=== PATIENT | female | born 1945 | race Caucasian/White ===

== ENCOUNTER 2023-07-19 11:04 | Outpatient (OUT) | payer MEDICARE, SELFPAY ==
[2023-07-19 11:47] LABS: Basophils Percent Auto 0.9 % (0.2-2.0); Eosinophils Absolute Auto 0.1 10^3/uL (0.0-0.7); Eosinophils Percent Auto 2.8 % (0.9-7.0); Hematocrit 37.7 % (36.0-48.0); Hemoglobin 12.6 g/dL (12.0-16.0); Immature Granulocytes Abs Auto 0.01 10^3/uL (0.00-0.03); Immature Granulocytes Pct Auto 0.2 % (0.0-0.5); Mean Corpuscular HGB Conc 33.4 g/dL (29.9-35.2); Mean Corpuscular Hemoglobin 34.1 pg (26.7-34.0); Mean Corpuscular Volume 102.2 fL (81.0-99.0); Mean Platelet Volume 9.1 fL (9.5-13.5); Monocytes Absolute Auto 0.5 10^3/uL (0.3-0.8); Monocytes Percent Auto 10.5 % (1.7-12.0); Neutrophils Absolute Auto 2.7 10^3/uL (1.4-6.5); Neutrophils Percent Auto 61.6 % (43.0-75.0); Platelet Count 211 10^3/uL (150-450); Red Blood Count 3.69 10^6/uL (4.20-5.40); Red Cell Distribution Width 11.8 % (11.0-15.0); White Blood Count 4.3 10^3/uL (4.0-11.0)
[2023-07-19 12:37] LABS: Alanine Aminotransferase 23 U/L (14-59); Anion Gap 12.6; Aspartate Amino Transferase 26 U/L (15-37); Calcium 8.8 mg/dL (8.5-10.1); Carbon Dioxide 28.7 mmol/L (21.0-32.0); Chloride 102 mmol/L (98-107); Cholesterol 219 mg/dL (<=200); Estimated GFR (African America >60 (>=60); Estimated GFR (Non-African Ame >60 (>=60); Glucose 96 mg/dL (74-106); HDL Cholesterol 73 mg/dL (40-60); Potassium 4.3 mmol/L (3.5-5.1); Sodium 139 mmol/L (136-145); Triglycerides 86 mg/dL (<=150); VLDL CHOLESTEROL 17.2 mg/dL
== END 2023-07-19 11:05 | disposition home or self-care (01) ==
PROVIDERS: PCP Internal Medicine; Visit Provider Internal Medicine Cardiovascular Disease
DX: I25.10 Atherosclerotic heart disease of native coronary artery without angina pectoris (principal); Z79.899 Other long term (current) drug therapy; E78.5 Hyperlipidemia, unspecified
CPT/HCPCS: 36415; 80048; 80061; 84450; 84460; 85025

== ENCOUNTER 2023-07-26 20:08 | Emergency (ER) | payer MEDICARE, SELFPAY ==
[2023-07-26 20:19] VITALS: BP 144/65; PULSE 63; RESP 16; TEMP 37.1; O2SAT 98; BMI 26.2
--- NOTE | 2023-07-26 20:37 | CT_ITS ---
The [address] [address] Patient Name: SHEILA ALVAREZ MRN: [id number] date: 1945 Sex: F Assigned Patient Location: ER Current Patient Location: .[facility] Accession/Order Number: [id number] Exam Date: 07/26/2023 21:35 Report Date: 07/26/2023 22:19 At the request of: GERMAN MARKER Procedure: CT head/brain wo con EXAMINATION: CT head/brain wo con, CT cervical spine wo con CLINICAL HISTORY: fall, head injury TECHNIQUE: Serial axial unenhanced images were obtained from the vertex to the foramen magnum. Spiral, high resolution axial unenhanced images were obtained from the skull base to the cervicothoracic junction with sagittal and coronal planar reconstructions. All CT scans at this facility use dose modulation, iterative reconstruction, and/or weight based dosing when appropriate to reduce radiation dose to as low as reasonably achievable. COMPARISON: CT brain 05/10/2016 RESULT: BRAIN: Acute change: No evidence of an acute contusion or other acute parenchymal process. Hemorrhage: No evidence of acute intracranial hemorrhage. Mass lesion / Mass effect: There is no evidence of an intracranial mass or extraaxial fluid collection. No significant mass effect. Chronic change: Scattered patchy foci of low attenuation are present within supratentorial white matter which is a nonspecific finding but likely represents mild microvascular ischemia. Parenchyma: There is mild generalized volume loss. Ventricles: Ventricular enlargement concordant with the degree of parenchymal volume loss. Soft Tissues: Mild superior right parietal scalp soft tissue swelling. Facial bones: No evidence of an acute fracture in the visualized facial bones. Orbits: Bilateral lens replacements. Paranasal Sinuses: The paranasal sinuses are clear. Mastoid air cells: Clear. CERVICAL: Counting reference: Craniocervical junction. Alignment: Cervical lordosis is maintained. Grade anterolisthesis C5 on C6. Atlantoaxial interval is maintained. Vertebral body heights are maintained. Multilevel loss of disc spaces most prominent at C4-C5. Craniocervical junction: Craniocervical junction is normal. Osseous structures/fracture: No evidence of a lytic or blastic process in the visualized spine. No evidence of acute or chronic fracture. Cervical soft tissues: The paraspinal soft tissues planes are maintained. Multilevel degenerative changes of the cervical spine, most prominent at C5-C6. Upper thoracic spine: Visualized upper thoracic canal and foramina without significant narrowing. CT/CT head/brain wo con IMPRESSION: Brain: 1. No acute intracranial abnormality; no acute infarct, intracranial hemorrhage or extra-axial collection. 2. Chronic microvascular ischemia and involutional changes. 3. Mild superior parietal scalp soft tissue swelling. Cervical spine: 1. No acute fracture or traumatic malalignment in the cervical spine. 2. Multilevel degenerative changes most prominent at C5-C6. Electronically authenticated by: SIDNEY MCCARTNEY Date: 07/26/2023 22:19
--- NOTE | 2023-07-26 20:37 | CT_ITS ---
The [address] [address] Patient Name: SHEILA ALVAREZ MRN: [id number] date: 1945 Sex: F Assigned Patient Location: ER Current Patient Location: .[facility] Accession/Order Number: [id number] Exam Date: 07/26/2023 21:35 Report Date: 07/26/2023 22:19 At the request of: GEMRAN MARKER Procedure: CT cervical spine wo con EXAMINATION: CT head/brain wo con, CT cervical spine wo con CLINICAL HISTORY: fall, head injury TECHNIQUE: Serial axial unenhanced images were obtained from the vertex to the foramen magnum. Spiral, high resolution axial unenhanced images were obtained from the skull base to the cervicothoracic junction with sagittal and coronal planar reconstructions. All CT scans at this facility use dose modulation, iterative reconstruction, and/or weight based dosing when appropriate to reduce radiation dose to as low as reasonably achievable. COMPARISON: CT brain 05/10/2016 RESULT: BRAIN: Acute change: No evidence of an acute contusion or other acute parenchymal process. Hemorrhage: No evidence of acute intracranial hemorrhage. Mass lesion / Mass effect: There is no evidence of an intracranial mass or extraaxial fluid collection. No significant mass effect. Chronic change: Scattered patchy foci of low attenuation are present within supratentorial white matter which is a nonspecific finding but likely represents mild microvascular ischemia. Parenchyma: There is mild generalized volume loss. Ventricles: Ventricular enlargement concordant with the degree of parenchymal volume loss. Soft Tissues: Mild superior right parietal scalp soft tissue swelling. Facial bones: No evidence of an acute fracture in the visualized facial bones. Orbits: Bilateral lens replacements. Paranasal Sinuses: The paranasal sinuses are clear. Mastoid air cells: Clear. CERVICAL: Counting reference: Craniocervical junction. Alignment: Cervical lordosis is maintained. Grade anterolisthesis C5 on C6. Atlantoaxial interval is maintained. Vertebral body heights are maintained. Multilevel loss of disc spaces most prominent at C4-C5. Craniocervical junction: Craniocervical junction is normal. Osseous structures/fracture: No evidence of a lytic or blastic process in the visualized spine. No evidence of acute or chronic fracture. Cervical soft tissues: The paraspinal soft tissues planes are maintained. Multilevel degenerative changes of the cervical spine, most prominent at C5-C6. Upper thoracic spine: Visualized upper thoracic canal and foramina without significant narrowing. CT/CT cervical spine wo con IMPRESSION: Brain: 1. No acute intracranial abnormality; no acute infarct, intracranial hemorrhage or extra-axial collection. 2. Chronic microvascular ischemia and involutional changes. 3. Mild superior parietal scalp soft tissue swelling. Cervical spine: 1. No acute fracture or traumatic malalignment in the cervical spine. 2. Multilevel degenerative changes most prominent at C5-C6. Electronically authenticated by: SIDNEY MCCARTNEY Date: 07/26/2023 22:19
--- NOTE | 2023-07-26 20:38 | ED_ITS ---
HPI - Fall General Chief Complaint: Head Injury Stated Complaint: Fall, Head Laceration Time Seen by Provider: 07/26/23 20:28 Source: patient Mode of arrival: Wheelchair History of Present Illness HPI Narrative: This 77-year-old female who is on a daily baby aspirin is brought to the emergency department by her son after she fell at home. 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 She denies loss of consciousness. She sustained approximately 1.5 cm laceration to the right lateral parietal scalp. She had moderate bleeding at the time which has since stopped. She complains of some mild headache and neck pain. She has no focal weakness numbness or tingling. She does not know the date of her last tet anus shot. She has no nausea or vomiting. There was no seizure activity. She is otherwise at her baseline Related Data Allergies Allergy/AdvReac Type Severity Reaction Status Date / Time No Known Drug Allergies Allergy Verified 07/26/23 20:19 Review of Systems ROS Status of ROS 10 or more systems reviewed and unremarkable except as noted in history and below Exam Narrative Exam Narrative: Nurses note and vital signs reviewed and patient is not hypoxic. General: The patient appears well and in no apparent distress. Patient is rest ing comfortably on cart. GCS 15. Skin: Warm, dry, no pallor noted. There is no rash noted. Head: Normocephalic, There is approximately 1.5 cm laceration to the left parietal scalp, no step-off or active bleeding noted Neck: No midline bony verteebral tenderness or step-off Eye: Normal conjunctiva, no drainage, EOMI. PERRL Ears, Nose, Mouth, and Throat: oral mucosa is moist. Cardiovascular: Regular Rate and Rhythm Respiratory: Patient is in no distress, no accessory muscle use, lungs are clear to auscultation, no wheezing, rales or rhonchi Back: non-tender, no CVA tenderness bilaterally to percussion. GI: Normal bowel sounds, no tenderness to palpation, no masses appreciated. No rebound, guarding, or rigidity noted. Musculoskeletal: The patient has no evidence of calf tenderness, no pitting edema, symmetrical pulses noted bilaterally Neurological: A&O x4, normal speech, Upper and lower external he strength and sensation is intact, information scientist strength is normal. GCS 15 Psychiatric: Cooperative Constitutional Vital Signs, click to edit/add: Last Vital Signs Temp 98.7 F 07/26/23 20:19 Pulse 63 07/26/23 20:19 Resp 16 07/26/23 20:19 BP 144/65 H 07/26/23 20:19 Pulse Ox 98 07/26/23 20:19 O2 Del Method Room Air 07/26/23 20:19 Course Vital Signs Vital signs: Vital Signs Temperature 98.7 F 07/26/23 20:19 Pulse Rate 63 07/26/23 20:19 Respiratory Rate 16 07/26/23 20:19 Blood Pressure 144/65 H 07/26/23 20:19 Pulse Oximetry 98 07/26/23 20:19 Oxygen Delivery Method Room Air 07/26/23 20:19 Temperature 98.7 F 07/26/23 20:19 Pulse Rate 63 07/26/23 20:19 Respiratory Rate 16 07/26/23 20:19 Blood Pressure 144/65 H 07/26/23 20:19 Pulse Oximetry 98 07/26/23 20:19 Oxygen Delivery Method Room Air 07/26/23 20:19 MDM - Fall MDM Narrative Medical decision making narrative: Procedure note: Right scalp laceration repair; the area was cleaned with normal saline and hydrogen peroxide. LET gel was applied topically and 4 hector were placed into the laceration with good wound edge approximation. Pt tolerated procedure well. This 69-year-old female is brought emergency department by her son for evaluation after she had a fall at home while bending over to picking machine operator her cat. She sustained an approximately 2cm laceration to the right parietal aspect of her scalp. She denies loss of consciousness. Upon arrival she had a mild headache and some nonspecific neck pain. There is no midline bony vertebral tenderness. Her neuro exam is normal. He skin of the brain is negative for acute findings. CT scan of the cervical spine shows chronic changes but no acute fracture or subluxation. The scalp laceration was closed with 4 hector after the skin was cleaned. Patient had a procedure well. She'll be discharged home with head trauma instructions. I explained to the patient and her son that the hector can be removed in the next 5-7 days. Discharge Plan Discharge Chief Complaint: Head Injury Clinical Impression: Fall from standing, Closed head injury, Laceration of scalp Patient Disposition: Home, Self-Care Time of Disposition Decision: 22:38 Instructions: Fall Prevention for Older Adults (ED), Head Injury (ED), Staple Care (ED) Additional Instructions: Hector can be removed in the next 5-7 days Referrals: CULLEN RUSSELL [Primary Care Provider] - 1 week Procedures ED Laceration Laceration Laceration 1: Size (cm): 2 Description: linear
--- NOTE | 2023-07-26 21:00 | PC.NURSE ---
Pt presents to ER for a laceration to the top of her head after falling while picking up her earlier this evening Pt's son is with her No loss of consciousness Pt takes 2 aspirin a day
[2023-07-26] MEDS: ADACEL DIPH,PERTUSS(ACELL),TET VAC/PF 0.5 ML ADULT SYRINGE IM (21:09)
[2023-07-26] MEDS: ACETAMINOPHEN 325 MG TABLET 650 MG PO (21:09)
== END 2023-07-26 22:50 | disposition home or self-care (01) ==
PROVIDERS: Emergency Provider Emergency Medicine; PCP Internal Medicine
DX: S01.01XA Laceration without foreign body of scalp, initial encounter (principal); S09.8XXA Other specified injuries of head, initial encounter; Z23 Encounter for immunization; W19.XXXA Unspecified fall, initial encounter
CPT/HCPCS: 12001; 70450; 72125; 90471; 90715; 99284

== ENCOUNTER 2023-08-15 13:01 | Outpatient (OUT) | payer MEDICARE, SELFPAY ==
--- NOTE | 2023-08-15 13:04 | XR_ITS ---
[address] [address] Patient Name: SHEILA ALVAREZ MRN: [id number] date: 1945 Sex: F Assigned Patient Location: [facility] Current Patient Location: [facility] Accession/Order Number: [id number] Exam Date: 08/15/2023 13:15 Report Date: 08/15/2023 14:35 At the request of: BLAS RODRIGUEZ Procedure: XR DEXA axial skeleton EXAMINATION: XR DEXA axial skeleton, 08/15/2023 1:15 PM EDT HISTORY: Osteoporosis M81.0 COMPARISON: 2019, 2017, 2014, 2010. TECHNIQUE: Dual-energy X-ray absorptiometry (DEXA) bone density study performed for the axial skeleton. HISTORY: Osteoporosis M81.0 FINDINGS: Bone mineral density left forearm radius measures 0.493 g/sq cm. T score -3.1. Endotracheal classification: Osteoporosis. Right femur total bone marrow density measures 0.833 g/sq cm. Young adult T score -1.4. WHO classification: Osteopenia XR/XR DEXA axial skeleton IMPRESSION: Interval reduction in bone mineral density. Osteoporosis with high fracture risk Electronically authenticated by: RANDY DUNAWAY Date: 08/15/2023 14:35
== END 2023-08-15 13:02 | disposition home or self-care (01) ==
LOC: RAD 13:01
PROVIDERS: PCP Internal Medicine; Visit Provider Physician Assistant
DX: M81.0 Age-related osteoporosis without current pathological fracture (principal)
CPT/HCPCS: 77080

== ENCOUNTER 2023-11-24 14:50 | Outpatient (OUT) | payer MEDICARE, SELFPAY ==
[2023-11-24 15:39] LABS: Calcium 9.1 mg/dL (8.5-10.1); Carbon Dioxide 28.1 mmol/L (21.0-32.0); Chloride 104 mmol/L (98-107); Estimated GFR (African America >60 (>=60); Estimated GFR (Non-African Ame >60 (>=60); Glucose 108 mg/dL (74-106); Potassium 4.1 mmol/L (3.5-5.1); Sodium 138 mmol/L (136-145)
== END 2023-11-24 14:51 | disposition home or self-care (01) ==
PROVIDERS: PCP Internal Medicine; Visit Provider Internal Medicine Cardiovascular Disease
DX: R60.1 Generalized edema (principal)
CPT/HCPCS: 36415; 80048

== ENCOUNTER 2024-07-04 13:11 | Outpatient (OUT) | payer MEDICARE, SELFPAY ==
[2024-07-04 14:06] LABS: BUN Creatinine Ratio 19.1; Carbon Dioxide 29.1 mmol/L (21.0-32.0); Chloride 101 mmol/L (98-107); Estimated GFR (African America >60 (>=60); Estimated GFR (Non-African Ame >60 (>=60); Glucose 97 mg/dL (74-106); Potassium 4.1 mmol/L (3.5-5.1); Sodium 138 mmol/L (136-145)
[2024-07-04 14:38] LABS: Basophils Percent Auto 0.7 % (0.2-2.0); Eosinophils Absolute Auto 0.1 10^3/uL (0.0-0.7); Eosinophils Percent Auto 3.1 % (0.9-7.0); Hemoglobin 12.6 g/dL (12.0-16.0); Immature Granulocytes Abs Auto 0.01 10^3/uL (0.00-0.03); Immature Granulocytes Pct Auto 0.2 % (0.0-0.5); Lymphocytes Absolute Auto 1.1 10^3/uL (1.2-3.8); Lymphocytes Percent Auto 24.8 % (20.5-60.0); Mean Corpuscular HGB Conc 33.2 g/dL (29.9-35.2); Mean Corpuscular Hemoglobin 33.9 pg (26.7-34.0); Mean Corpuscular Volume 102.2 fL (81.0-99.0); Mean Platelet Volume 9.5 fL (9.5-13.5); Monocytes Absolute Auto 0.5 10^3/uL (0.3-0.8); Monocytes Percent Auto 11.8 % (1.7-12.0); Neutrophils Absolute Auto 2.7 10^3/uL (1.4-6.5); Neutrophils Percent Auto 59.4 % (43.0-75.0); Platelet Count 220 10^3/uL (150-450); Red Blood Count 3.72 10^6/uL (4.20-5.40); White Blood Count 4.5 10^3/uL (4.0-11.0)
== END 2024-07-04 13:12 | disposition home or self-care (01) ==
LOC: LAB 13:13
PROVIDERS: PCP Internal Medicine; Visit Provider Internal Medicine Cardiovascular Disease
DX: I48.0 Paroxysmal atrial fibrillation (principal); Z79.899 Other long term (current) drug therapy
CPT/HCPCS: 36415; 80048; 85025

== ENCOUNTER 2024-08-07 14:09 | Outpatient (OUT) | payer MEDICARE, SELFPAY ==
--- NOTE | 2024-08-07 14:13 | US_ITS ---
The [address] [address] Patient Name: SHEILA ALVAREZ MRN: [id number] date: 1945 Sex: F Assigned Patient Location: US Current Patient Location: Accession/Order Number: [id number] Exam Date: 08/07/2024 14:15 Report Date: 08/08/2024 10:44 At the request of: BLAS RODRIGUEZ Procedure: US abdomen limited EXAMINATION: US abdomen limited HISTORY: Localized Superficial Swelling Mass COMPARISON: No relevant comparison available. FINDINGS: Identified in the region of patient's palpable abnormality and tenderness along the umbilicus is a ventral hernia containing mesentery as well as a loop of bowel evidenced by air with acoustic shadowing. The size of this hernia change significantly with Valsalva US/US abdomen limited IMPRESSION: Ventral hernia containing mesentery and bowel Electronically authenticated by: RANDY DUNAWAY Date: 08/08/2024 10:44
--- OUTSIDE RECORDS SUMMARY | 2024-08-07 14:31 | XMS_ITS | CCD ---
Author Organization [facility] CliniSymo Care Team Providers Care Dentures Lab Technician Name Role Phone AUSTIN RENTERIA Admitting Unavailable AUSTIN RENTERIA Attending Unavailable AUSTIN TORRES Referring Unavailable AUSTIN TORRES Primary Care Unavailable Unavailable Unavailable Eladio Posada Unavailable Mariana Duggan Unavailable DAWSON ., DR HAZEL Walker Admitting Unavailable OSMAN ., DR HAZEL Walker Attending Unavailable DREW, DR BERMAN Primary Care Unavailable DAWSON ., DR HAZEL Walker Consulting Unavailable OSMAN ., DR HAZEL Walker Admitting Unavailable OSMAN ., DR HAZEL Walker Attending Unavailable DREW, DR BERMAN Primary Care Unavailable BENTLEY ., DALE Consulting Unavailable DAWSON ., DR HAZEL Walker Admitting Unavailable OSMAN ., DR HAZEL Walker Attending Unavailable DREW, DR BERMAN Primary Care Unavailable OSMAN ., DR HAZEL Walker Consulting Unavailable OSMAN ., DR HAZEL Walker Admitting Unavailable OSMAN ., DR HAZEL Walker Attending Unavailable DREW, DR BERMAN Primary Care Unavailable OSMAN ., DR HAZEL Walker Consulting Unavailable DAWSON ., DR HAZEL Walker Admitting Unavailable OSMAN ., DR HAZEL Walker Attending Unavailable DREW, DR BERMAN Primary Care Unavailable BENTLEY ., DALE Consulting Unavailable DAWSON ., DR HAZEL Walker Admitting Unavailable OSMAN ., DR HAZEL Walker Attending Unavailable DREW, DR BERMAN Primary Care Unavailable DAWSON ., DR HAZEL Walker Consulting Unavailable CLAUDIA OLIVER Admitting Unavailable CLAUDIA OLIVER Attending Unavailable DREW, DR BERMAN Primary Care Unavailable LEDBETTER, DR RANDY Sullivan Consulting Unavailable CLAUDIA OLIVER Consulting Unavailable QUENTIN Torres Primary Care Provider DO Eladio Posada Attending Provider Austin Torres II Primary Care Provider Austin Torres Unavailable Dr. Tawnya Fontana Referring Sheri vailable Fontana, Dr. Tawnya Stockton Attending Sheri vailable Torres II, Dr. Austin Morrissey Primary Care Sheri vailable Fontana, Dr. Tawnya Stockton Referring Sheri vailable Fontana, Dr. Tawnya Stockton Attending Sheri vailable Torres II, Dr. Austin Morrissey Primary Care Sheri vailable Yung, Dr. Jono Gan Attending Unava ilable Torres II, Dr. Austin Morrissey Primary Care Sheri vailable Yung, Dr. Jono Gan Referring Unava ilable Fontana, Dr. aTwnya Stockton Referring Sheri vailable Fontana, Dr. Tawnya Stockton Attending Sheri vailable Torres II, Dr. Austin Morrissey Primary Care Sheri vailable Austin Torres MD Unavailable [phone] Austin Torres MD Primary Care Provider Austin Torres MD Primary Care Provider TAWNYA FONTANA Referring Unavailable DREW AUSTIN B Primary Care Unavailable Torres, Austin Primary Care Unavailable Laurie Posadain A Attending Unavailable Laurie Posadain A Admitting Unavailable Laurie Posadain A Attending Unavailable Laurie Posadain A Admitting Unavailable Torres, Austin Primary Care Unavailable Torres II Austin Primary Care Provider DO Eladio Posada Attending Provider [phone] TAWNYA FONTANA Attending Unavailable DREW AUSTIN B Primary Care Unavailable TAWNYA FONTANA Attending Unavailable TAWNYA FONTANA Referring Unavailable DREW AUSTIN B Primary Care Unavailable DREW AUSTIN B Attending Unavailable DREW, AUSTIN B Attending Unavailable SANTHOSH VICKERS Attending Unavailable ALBINO, ELADIO Referring Unavailable DEA RODRIGUEZ Attending Unavailable GERMAN MAZA Attending Unavailable ALBINO, ELADIO Referring Unavailable RAQUEL BARRIENTOS Attending Unavailable ALBINO, ELADIO Referring Unavailable SANTHOSH VICKERS T Attending Unavailable ALBINO, ELADIO Referring Unavailable SANTHOSH VICKERS T Attending Unavailable ALBINO ELADIO Referring Unavailable RAQUEL BARRIENTOS Attending Unavailable LAURIE POSADAIN Referring Unavailable RAQUEL BARRIENTOS Attending Unavailable ALBINO, ELADIO Referring Unavailable BRINK, RAQUEL Attending Unavailable ALBINO, ELADIO Referring Unavailable BRINK, RAQUEL Attending Unavailable ALBINO, ELADIO Referring Unavailable BRINK, RAQUEL Attending Unavailable ALBINO, ELADIO Referring Unavailable BRINK, RAQUEL Attending Unavailable ALBINO, ELADIO Referring Unavailable BRINK, RAQUEL Attending Unavailable ALBINO, ELADIO Referring Unavailable BRINK, RAQUEL Attending Unavailable ALBINO, ELADIO Referring Unavailable BRINK, RAQUEL Attending Unavailable ALBINO, ELADIO Referring Unavailable CLAUDIA OLIVER M Attending Unavailable BRINK, RAQUEL Attending Unavailable ALBINO, ELADIO Referring Unavailable BENITOCLAUDIA M Attending Unavailable BRINK, RAQUEL Attending Unavailable ALBINO, ELADIO Referring Unavailable BRINK, RAQUEL Attending Unavailable ALBINO, ELADIO Referring Unavailable BRINK, RAQUEL Attending Unavailable ALBINO, ELADIO Referring Unavailable DEA RODRIGUEZ M Attending Unavailable MERRY OLIVEIRA Attending Unavailable MERRY OLIVEIRA Referring Unavailable Allergies Allergy Classification Reported Allergen(s) Allergy Type Date of Onset Reaction(s) Facility (7 sources) Clindamycin; Translations: [CLINDAMYCIN] Drug Allergy 014 Unknown Reaction [facility] Repository (12 sources) Codeine; Translations: [CODEINE] Drug Allergy 014 Unknown, Unknown Reaction [facility] Repository (1 source) Hydroxychloroquine Drug Allergy 017 [facility] Repository (1 source) Hydroxychloroquine Drug Allergy 017 [facility] Repository (1 source) Minocycline Drug Allergy 017 [facility] Repository (20 sources) Clindamycin; Translations: [Clindamycin] Drug Allergy 013 Rash, Unknown [facility] Work Phone: (20 sources) Codeine; Translations: [Codeine Derivatives] Drug Allergy 004 Mental Status Change, Dizziness, Unknown [facility] (11 sources) Hydroxychloroquine Drug Allergy 011 [facility] (8 sources) Minocycline Drug Allergy 013 Other: See Comments [facility] Work Phone: (5 sources) HYDROXYLCHOROQUINE HLC Propensity to adverse reactions Unknown [facility] Other (5 sources) CLINDOMYCIN Propensity to adverse reactions Unknown [facility] Other (1 source) cefdinir Drug Allergy [facility] Repository (1 source) Hydroxychloroquine Drug Allergy 014 [facility] Repository (1 source) Minocycline Drug Allergy 014 [facility] Repository (1 source) cefdinir Drug Allergy 016 Intolerance [facility] (1 source) Hydroxychloroquine Drug Allergy 011 Swelling [facility] (3 sources) cefdinir Drug Allergy 016 GI intolerance [facility] (3 sources) DULoxetine Drug Allergy 022 Unknown [facility] (3 sources) Minocycline Drug Allergy 013 Other, Unknown [facility] (3 sources) quiNINE Drug Allergy 017 [facility] (3 sources) Other Propensity to adverse reactions 003 [facility] (1 source) Clindamycin Drug Allergy 024 [facility] Repository (1 source) Codeine Drug Allergy 024 [facility] Repository (1 source) Hydroxychloroquine Drug Allergy 024 [facility] Repository (1 source) Minocycline Drug Allergy 024 [facility] Repository Medications Current Medications Medication Drug Class(es) Dates Sig (Normalized) Sig (Original) acetaminophen 500 mg oral tablet (20 sources) Start: 09-08-2021 take 1000 mg by mouth every eight hours Acetaminophen Active 1000 MG PO Q8H 0 September 08, 2021 12:00am Start: 08-27-2019 End: 11-26-2019 take 325 mg by mouth every six hours Acetaminophen Discontinued 325 MG PO Q6H August 27, 2019 12:00am November 26, 2019 2:36pm acetaminophen (T ylenol) 500 mg tablet Take 1 tablet (500 mg) by mouth if needed. 0 Active take 1 tablet by lisa th every four to six hours as needed Acetaminophen 500 MG Oral Tablet TAKE 1 TABLET EVERY 4 TO 6 HOURS NEEDED. Quantity: 0 Refills: 0 Ordered: 25-Jan-2022 DO Active [id number] 200 actuat albuterol 0.09 mg/actuat metered dose inhaler (20 sources) beta2-Adrenergic Agonist Start: 11-26-2019 take 1 puff(s) by inhalation every four to six hours Albuterol Sulfate (Proair Hfa) 90 mcg/actuation Hfa Aerosol Inhaler Active 2 PUFF INHALATION EVERY 4-6 HOURS November 26, 2019 1:00am Start: 12-13-2016 take 2 puff(s) by in halation every four hours as needed ProAir HFA 108 (90 Base) MCG/ACT 2 puffs as needed Inhalation every 4 hrs for 90 days Dec, Active take 1-2 puff(s) by inhalation every four to six hours as needed Albuterol Sulfate HFA 108 (90 Base) MCG/ACT Inhalation Aerosol Solution INHALE 1 TO 2 PUFFS EVERY 4 TO 6 HOURS NEEDED. Quantity: 0 Refills: 0 Ordered: 15-Sep-2022 DO Active Anoro Ellipta 62.5-25 MCG/INH (1 source) take 1 puff(s) by inhalation once daily Anoro Ellipta 62.5-25 MCG/INH 1 puff Inhalation Once a day for 90 days Active Aspir-81 81 MG (5 sources) take 1 tablet by mouth once daily Aspir-81 81 MG 1 tablet Orally Once a day *please review for potential _update for e-prescription and drug interaction check* Active aspirin 81 mg delayed release oral tablet (20 sources) Platelet Aggregation Inhibitor, Nonsteroidal Anti-inflammatory Drug Start: 2 take 1 tablet by mouth once daily aspirin 81 mg EC tablet Take 1 tablet (81 mg) by mouth once daily. 0 01/25/2022 Active Start: 08-27-2019 End: 11-26-2019 take 1 tablet by mouth once daily Aspirin (Aspir-81) 81 mg Tablet,Delayed Release (Dr/Ec) Discontinued 81 MG PO Daily August 27, 2019 12:00am November 26, 2019 2:37pm take 1 tablet by lisa th two times weekly aspirin, enteric coated (ASPIRIN, ENTERIC COATED) 81 mg EC tablet Take 81 mg by mouth as directed. 2 times a week 0 Active Comment on above: Take 81 mg by mouth as directed. 2 times a week azithromycin 250 mg oral tablet (2 sources) Macrolide Antimicrobial Start: 12-13-19 24 End: 12-18-19 24 take 2 tablets by mouth once daily, then take 1 tablet by mouth once daily azithromycin (Zithromax) 250 MG tablet Indications: Acute non-recurrent sinusitis, unspecified location Take 2 tablets (500 mg) by mouth Daily for 1 day, THEN 1 tablet (250 mg) Daily for 4 days. 6 tablet 0 12/13/2023 12/18/2023 Active b complex vitamins capsule (3 sources) take 1 capsule by mouth in the morning b complex vitamins capsule Take 1 capsule by mouth in the morning. 0 Active calcium citrate 1500 mg / cholecalciferol 250 unt oral tablet (5 sources) Vitamin D Start: 09-08-20 calcium citrate-vitamin D3 315 mg-6.25 mcg (250 unit) tablet 1 tablet (315 mg) once daily. 0 09/08/2021 Active Start: 09-08-2021 take 1 tablet by lisa th twice daily Calcium Citrate-Vitamin D3 (Citracal + D Maximum) 315 mg-6.25 mcg (250 unit) tablet Active 1 TAB PO Twice daily September 08, 2021 12:00am citalopram 20 mg oral tablet (15 sources) Serotonin Reuptake Inhibitor Start: 09-04-2021 take 20 mg by mouth once daily Citalopram Active 20 MG PO Daily September 04, 2021 12:00am Start: 12-03-2019 End: 09-04-2021 take 10 mg by mouth once daily in the morning Citalopram Discontinued 10 MG PO Every morning December 03, 2019 1:00am September 04, 2021 7:49pm Further refills per Primary Care take 1 tablet by lisa th twice daily Citalopram Hydrobromide 20 MG Oral Tablet TAKE 1 TABLET TWICE DAILY. Quantity: 0 Refills: 0 Ordered: 25-Jan-2022 DO Active Comment on above: Take 10 mg by mouth once daily. cycloSPORINE 0.5 mg/ml ophthalmic suspension (20 sources) Calcineurin Inhibitor Immunosuppressant Start: 04-13-2023 cycloSPORINE (Restasis) 0.05 % ophthalmic emulsion Indications: Chronic dryness of both eyes Restasis 0.05 % eye drops in a dropperette 1.5 mL 11 04/13/2023 Active Start: 04-11-2022 Restasis 0.05 % Ophthalmic Emulsion Quantity: 60 Refills: 0 Ordered: 02-Aug-2022 DO Start : 11-Apr-2022 Active Start: 09-08-2021 take 1 drop(s) into the eye(s) twice daily Cyclosporine (Restasis) 0.05 % Dropperette Active 1 DROPS EYE-BOTH Twice daily September 08, 2021 12:00am take 1 drop(s) into the eye(s) twice daily Restasis 0.05 % ophthalmic emulsion instill 1 (ONE) DROP IN BOTH EYES TWICE DAILY 0 Active Restasis 0.05 % 1 into affected eye Ophthalmic Twice a day Active Restasis 0.05 % 1 into affected eye Ophthalmic Twice a day Active docosahexaenoic acid 120 mg / eicosapentaenoic acid 180 mg oral capsule (15 sources) take 1 capsule by mouth once daily fish oil concentrate ([place]coe-3) 120-180 mg capsule Take 1 capsule (1 g) by mouth once daily. 0 Active 30 actuat fluticasone furoate 0.1 mg/actuat / umeclidinium 0.0625 mg/actuat / vilanterol 0.025 mg/actuat dry powder inhaler (18 sources) Anticholinergic , Corticosteroid, beta2-Adrenergi c Agonist Start: 04-13-20 take 1 puff(s) by inhalation in the morning Fluticasone-Umeclid in-Vilant (Trelegy Ellipta) 100-62.5-25 MCG/ACT aerosol powder Indications: Chronic obstructive pulmonary disease, unspecified COPD type ([facility]) Inhale 1 puff in the morning. 1 each 04/13/2023 Active Start: 02-09-2022 Trelegy Ellipt a 100-62.5-25 MCG/ACT Inhalation Aerosol Powder Breath Activated Quantity: 60 Refills: 0 Ordered: 31-Aug-2022 DO Start : 09-Feb-2022 Active take 1 puff[facility] Trelegy Ellipta 100-62.5-25 mcg blister with device INHALE 1 PUFF BY MOUTH IN THE MORNING 0 Active furosemide 20 mg oral tablet (9 sources) Loop Diuretic Start: 11-13-2023 End: 11-12-2024 take 1 tablet by mouth once daily as needed furosemide (Lasix) 20 mg tablet Indications: Generalized edema Take 1 tablet (20 mg) by mouth once daily. As needed 30 tablet 3 11/13/2023 11/12/2024 Active Start: 09-08-2021 Furosemide Act tam 20 MG PO Q48H September 08, 2021 12:00am Comment on above: Take 20 mg by mouth once daily. gabapentin 300 mg oral capsule (20 sources) Anti-epileptic Agent Start: 12-03-2019 Gabapentin (Neurontin) 300 mg Capsule Active 100 MG PO Twice daily 0 December 03, 2019 12:47pm Start: 08-27-2019 End: 12-03-2019 Gabapentin (Neurontin) 300 m g Capsule Discontinued 100 MG PO Daily August 27, 2019 12:00am December 03, 2019 1:42pm take 100 mg by mouth twice daily GABAPENTIN ORAL Take 100 mg by mouth twice daily. 0 Active Comment on above: Take 100 mg by mouth twice daily. 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 0 Active latanoprost 0.05 mg/ml ophthalmic solution (20 sources) Prostaglandin Analog Start: latanoprost, PF, 0.005 % drops Administer into both eyes once daily at bedtime. 0 09/08/2021 Active Start: 09-08-2021 take 1 drop(s) into the eye(s) at bedtime Latanoprost (Xalatan) 0.005 % drops Active 1 DROPS EYE-BOTH Bedtime September 08, 2021 12:00am latanoprost (Xal atan) 0.005 % ophthalmic solution 1 (one) time each day at the same time. 1 drop into affected eye in the evening Ophthalmic Once a day 0 Active take 1 drop(s) into the eye(s) at bedtime Latanoprost 0.005 % Ophthalmic Solution INSTILL 1 DROP IN BOTH EYES AT BEDTIME. Quantity: 0 Refills: 0 Ordered: 25-Jan-2022 DO Active magnesium oxide 400 mg oral tablet (20 sources) Start: 01-25-2022 take 1 tablet by mouth in the morning magnesium oxide (Mag-Ox) 400 (240 Mg) MG tablet Take 400 mg by mouth in the morning. 0 01/10/2023 Active methylPREDNISolone 4 mg oral tablet (4 sources) Corticosteroid Start: 04-29-2022 methylPREDNISolone 4 MG as directed Orally for 7 days Apr, Active Start: 04-10-2015 Depo-Medrol 20 mg Apr, 60 mg montelukast 10 mg oral tablet (20 sources) Leukotriene Receptor Antagonist Start: 11-21-2017 take 10 mg by mouth once daily in the evening Montelukast Active 10 MG PO Every evening August 27, 2019 12:00am Multivitamins (5 sources) Multivitamins Or ally *please review for potential _update for e-prescription and drug interaction check* Active oxyCODONE hydrochloride 5 mg oral tablet (3 sources) Opioid Agonist Start: 09-14-2021 take 5 mg by mouth every six hours Oxycodone Active 5 MG PO Q6H 12 3 September 14, 2021 pantoprazole 40 mg delayed release oral tablet (5 sources) Proton Pump Inhibitor take 1 tablet by mouth every twenty-four hours Pantoprazole Sodium 40 MG 1 tablet Orally Once a day for 90 days Active pregabalin 100 mg oral capsule (6 sources) Start: 12-04-2023 take 1 capsule by mouth in the morning pregabalin (Lyrica) 100 MG capsule Indications: Sensory polyneuropathy Take 1 capsule (100 mg) by mouth in the morning and 1 capsule (100 mg) before bedtime. 60 capsule 3 12/04/2023 Active Start: 05-05-2023 pregabalin (Ly eligio) 75 mg capsule Lyrica CAPS TAKE 1 CAPSULE Daily Quantity: 0 Refills: 0 Ordered: 30-Jun-2023 DO Active ProAir HFA 108 (90 Base) MCG/ACT (1 source) Start: 12-13-2016 take 2 puff(s) by inhalation every four hours as needed ProAir HFA 108 (90 Base) MCG/ACT 2 puffs as needed Inhalation every 4 hrs for 90 days Dec, Active sotalol hydrochloride 80 mg oral tablet (20 sources) Antiarrhythmic Start: 12-03-2019 take 40 mg by mouth once daily Sotalol Active 40 MG PO Daily December 03, 2019 1:00am take 0.5 tablet by mouth once da radhika sotalol (Betapace) 80 mg tablet Take 0.5 tablets (40 mg) by mouth once daily. 0 Active take 1 tablet by mouth once gui y sotalol (Betapace) 80 MG tablet 80 mg 1 (one) time each day at the same time. 1 half tablet = 40mg Orally daily 0 Active Comment on above: Take 80 mg by mouth once daily. half tablet 7 actuat umeclidinium 0.0625 mg/actuat / vilanterol 0.025 mg/actuat dry powder inhaler (8 sources) Anticholinergic, beta2-Adrenergic Agonist Start: 08-27-2019 Umeclidinium-Vilanterol (Anoro Ellipta) 62.5-25 mcg/actuation Blister With Device Active 1 INH INHALATION Q24H August 27, 2019 12:00am umeclidinium-queta anterol (ANORO ELLIPTA) 62.5-25 mcg/actuation inhaler Inhale 1 Inhalation as instructed once daily. 0 Active take 1 puff(s) by in halation once daily Anoro Ellipta 62.5-25 MCG/INH 1 puff Inh alation Once a day for 90 days Active Comment on above: Inhale 1 Inhalation as instructed once daily. Completed/Discontinued Medications Medication Drug Class(es) Dates Sig (Normalized) Sig (Original) amLODIPine 2.5 mg oral tablet (8 sources) Dihydropyridine Calcium Channel Nino Start: 08-27-2019 End: 12-03-2019 take 2.5 mg by mouth once daily Amlodipine Discontinued 2.5 MG PO Daily August 27, 2019 12:00am December 03, 2019 1:41pm Ascorbic Acid (13 sources) Vitamin C ascorbic acid (VITAMIN C ORAL) Take by mouth once daily. 0 Active take 1 tablet by mouth once gui y Vitamin C 1000 MG Oral Tablet TAKE 1 TABLET DAILY. Quantity: 0 Refills: 0 Ordered: 15-Sep-2022 DO Active Comment on above: Take by mouth once d aily. atorvastatin 40 mg oral tablet (20 sources) HMG-CoA Reductase Inhibitor Start: 08-27-20 End: 10-25-20 24 take 1 tablet by mouth at bedtime atorvastatin (Lipitor) 40 MG tablet Indications: Coronary arteriosclerosis in [place] artery (CMS/HCC) Take 1 tablet (40 mg) by mouth at bedtime. 100 tablet 3 09/21/2023 12/13/2023 Discontinued (Side effects) Comment on above: Take 40 mg by mouth once daily. cholecalciferol 0.025 mg oral capsule (18 sources) Vitamin D Start: 08-27-20 End: 11-26-19 take 1 capsule by mouth once daily Cholecalciferol (Vitamin D3) (Vitamin D3) 1,000 unit Capsule Discontinued 1000 UNIT PO Daily August 27, 2019 12:00am November 26, 2019 2:37pm take 1 tablet by mouth once gui y Vitamin D3 50 MCG (1999 UT) Oral Tablet Take 1 tablet daily Quantity: 0 Refills: 0 Ordered: 25-Jan-2022 DO Active COMPOUNDED PRESCRIPTION (1 source) COMPOUNDED PRESCRIPTION Apply to affected area. given for hands 0 Active Comment on above: Apply to affected ar ea. given for hands DULoxetine 60 mg delayed release oral capsule (3 sources) Serotonin and Norepinephrine Reuptake Inhibitor Start: End: take 1 capsule by mouth once daily Duloxetine (Cymbalta) 60 mg Capsule,Delayed Release(Dr/Ec) Discontinued 60 MG PO Daily August 27, 2019 12:00am November 26, 2019 2:37pm ipratropium bromide 0.2 mg/ml inhalation solution (3 sources) Anticholinergic Start: End: Ipratropium [place] Discontinued 2.5 ML INHALATION every 6 to 8 hours August 27, 2019 12:00am November 26, 2019 2:37pm levoFLOXacin 500 mg oral tablet (3 sources) Quinolone Antimicrobial Start: End: take 500 mg by mouth once daily Levofloxacin Discontinued 500 MG PO Daily November 26, 2019 1:00am December 03, 2019 1:41pm Lidocaine (3 sources) Antiarrhythmic, Amide Local Anesthetic Start: Lidocaine Apr, 1 mL magnesium gluconate 550 mg oral tablet (3 sources) Start: End: take 30 mg by mouth once daily Magnesium Discontinued 30 MG PO Daily August 27, 2019 12:00am November 26, 2019 2:37pm metoprolol tartrate 25 mg oral tablet (6 sources) beta-Adrenergic Nino Start: End: take 25 mg by mouth twice daily Metoprolol Tartrate Discontinued 25 MG PO Twice daily August 27, 2019 12:00am December 03, 2019 1:41pm metroNIDAZOLE 7.5 mg/ml topical cream (3 sources) Nitroimidazole Antimicrobial Start: End: metroNIDAZOLE (Metrocream) 0.75 % cream 1 (one) time each day at the same time. apply to area around mouth topically Once a day for 30 day(s) 0 01/30/2023 12/13/2023 Discontinued (Therapy completed) Multi Vitamin Oral Tablet (3 sources) take 1 tablet by mouth once daily Multi Vitamin Oral Tablet TAKE 1 TABLET DAILY. Quantity: 0 Refills: 0 Ordered: 25-Jan-2022 DO Active MV,CA,MIN/IRON FUM/FA/VIT K (MULTI FOR HER ORAL) (1 source) MV,CA,MIN/IRON FUM/FA/VIT K (MULTI FOR HER ORAL) Take by mouth. 0 Active Comment on above: Take by mouth. nystatin [id number] unt/ml / triamcinolone acetonide 1 mg/ml topical cream (3 sources) Polyene Antifungal, Corticosteroid End: nystatin-triamcinolo ne (Mycolog II) cream nystatin-triamcinolo ne 100,000 unit/g-0.1 % topical cream 0 12/13/2023 Discontinued (Therapy completed) omeprazole 20 mg oral tablet (3 sources) Proton Pump Inhibitor Start: End: take 20 mg by mouth once daily Omeprazole Discontinued 20 MG PO Daily August 27, 2019 12:00am November 26, 2019 2:38pm OTC NUTRITIONAL SUPPLEMENT (1 source) OTC NUTRITIONAL SUPPLEMENT once daily. Toney Red 0 Active Comment on above: once daily. Toney Red TABS (13 sources) TABS Ta ke 1 tablet daily Quantity: 0 Refills: 0 Ordered: 15-Sep-2022 DO Active rivaroxaban 20 mg oral tablet (9 sources) Factor Xa Inhibitor Start: End: take 1 tablet by mouth once daily Rivaroxaban (Xarelto) 20 mg Tablet Discontinued 20 MG PO Daily with supper 30 December 03, 2019 1:00am October 27, 2021 3:34pm Comment on above: Take 20 mg by mouth daily with dinner. tiZANidine 4 mg oral tablet (3 sources) Central alpha-2 Adrenergic Agonist Start: 023 End: 024 tiZANidine (Zanaflex) 4 MG tablet Indications: Lumbosacral radiculopathy at L5 , Lumbosacral spondylosis with radiculopathy , Insomnia due to medical condition 1/2-1 po hs 30 tablet 3 08/30/2023 12/13/2023 Discontinued (Therapy completed) triamcinolone acetonide 40 mg/ml injectable suspension (10 sources) Corticosteroid Start: 022 Kenalog-40 May, 40 mg Start: 08-03-2018 KENALOG - 10 m g Jul, 40 mg Start: 01-22-2016 Kenalog -40 mg Jan, 1 mL Turmeric Curcumin Oral Capsule (13 sources) take 1 capsule by mouth once daily Turmeric Curcumin Oral Capsule TAKE 1 CAPSULE Daily Quantity: 0 Refills: 0 Ordered: 15-Sep-2022 DO Active Vitamin B Complex CAPS (12 sources) Vitamin B Comple x CAPS TAKE 1 CAPSULE Daily Quantity: 0 Refills: 0 Ordered: 15-Sep-2022 DO Active vitamin b complex capsule (1 source) take 1 capsule by mouth once daily vitamin b complex capsule Take 1 capsule by mouth once daily. 0 Active Comment on above: Take 1 capsule [facility] once daily. vortioxetine 10 mg oral tablet (12 sources) take 1 tablet by mouth once daily Trintellix 10 MG Oral Tablet Take 1 tablet daily Quantity: 0 Refills: 0 Ordered: 15-Sep-2022 DO Active zolpidem tartrate 5 mg oral tablet (8 sources) gamma-Aminobutyri c Acid-ergic Agonist Start: 0 End: 1 take 5 mg by mouth once daily at bedtime Zolpidem Discontinued 5 MG PO Daily at bedtime December 03, 2019 1:00am October 25, 2021 3:24pm Problems Active Problems Problem Classification Problem Date Documented Da te Episodic/Chronic Acquired foot deformities (19 sources) Hammer toe; Translations: [Other hammer toe(s) (acquired), right foot] Onset: 7 Resolved: 3 03-30-2023 Chronic Acute and unspecified renal failure (3 sources) Injury of kidney; Translations: [Acute kidney failure, unspecified] 09-04-2021 Episodic Adjustment disorders (3 sources) Adjustment disorder with depressed mood; Translations: [Adjustment disorder with depressed mood] Onset: 1 03-30-2023 Chronic Anxiety disorders (13 sources) Anxiety; Translations: [Anxiety disorder, unspecified] Onset: 0 03-30-2023 Chronic Asthma (8 sources) Reactive airway disease; Translations: [Unspecified asthma, uncomplicated] Onset: 5 03-30-2023 Chronic Cardiac arrest and ventricular fibrillation (3 sources) Ventricular fibrillation; Translations: [Ventricular fibrillation] 10-26-2021 Chronic Cardiac dysrhythmias (20 sources) Paroxysmal atrial fibrillation; Translations: [Atrial fibrillation] Onset: 7 12-02-2019 Chronic Cardiac dysrhythmias (9 sources) Sinus bradycardia; Translations: [Bradycardia, unspecified] Onset: 7 10-25-2021 Episodic Chronic kidney disease (3 sources) Chronic kidney disease stage 3; Translations: [Stage 3 chronic kidney disease] 11-26-2019 Chronic Chronic obstructive pulmonary disease and bronchiectasis (14 sources) Pulmonary emphysema; Translations: [Emphysema, unspecified] Onset: 5 11-26-2019 Chronic Coagulation and hemorrhagic disorders (2 sources) Thrombophilia; Translations: [Other thrombophilia] 12-13-2023 Chronic Complication of device; implant or graft (3 sources) Arteriosclerosis of coronary artery bypass graft; Translations: [Atherosclerosis of coronary artery bypass graft(s), unspecified, with angina pectoris with documented spasm] Onset: 7 03-30-2023 Chronic Congestive heart failure; nonhypertensive (20 sources) Chronic diastolic heart failure; Translations: [Unspecified diastolic (congestive) heart failure] Onset: 0 11-26-2019 Chronic Coronary atherosclerosis and other heart disease (20 sources) Coronary atherosclerosis; Translations: [Coronary atherosclerosis of lower [place] coronary artery] Onset: 7 03-30-2023 Chronic Digestive congenital anomalies (3 sources) Congenital hiatus hernia; Translations: [Congenital hiatus hernia] Onset: 7 03-30-2023 Chronic Diseases of white blood cells (4 sources) Neutropenia; Translations: [Neutropenia, unspecified] Onset: 7 12-29-2016 Chronic Disorders of lipid metabolism (20 sources) Hyperlipidemia; Translations: [Other and unspecified hyperlipidemia] Onset: 1 11-29-2019 Chronic Diverticulosis and diverticulitis (20 sources) Diverticulitis; Translations: [Diverticulitis of intestine, part unspecified, without perforation or abscess without bleeding] Onset: 5 Resolved: 3 03-30-2023 Chronic E Codes: Fall (3 sources) Fall; Translations: [Unspecified fall, initial encounter] 10-26-2021 Episodic Esophageal disorders (20 sources) Gastro-esophageal reflux disease with esophagitis; Translations: [Gastro-esophageal reflux disease with esophagitis] Onset: 6 Resolved: 3 06-13-2016 Chronic Esophageal disorders (5 sources) Esophagitis; Translations: [Esophagitis, unspecified] Episodic Essential hypertension (14 sources) Benign essential hypertension; Translations: [Essential (primary) hypertension] Onset: 5 11-26-2019 Chronic Fluid and electrolyte disorders (9 sources) Hyponatremia; Translations: [Hypo-osmolality and hyponatremia] 11-30-2019 Episodic Fracture of upper limb (8 sources) Other fracture of shaft of right humerus, subsequent encounter for fracture with routine healing; Translations: [Closed fracture of humerus] Onset: 1 Resolved: 2 Episodic Gastritis and duodenitis (5 sources) Gastritis; Translations: [Gastritis, unspecified, without bleeding] Episodic Glaucoma (3 sources) Bilateral glaucoma; Translations: [Unspecified glaucoma] Onset: 3 03-30-2023 Chronic Heart valve disorders (8 sources) Tricuspid valve disorder; 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, unspecified] Onset: 5 03-30-2023 Chronic Malaise and fatigue (11 sources) Fatigue; Translations: [Chronic fatigue, unspecified] Onset: 8 03-30-2023 Chronic Malaise and fatigue (20 sources) Fatigue; Translations: [Other malaise and fatigue] Onset: 3 Resolved: 3 08-03-2023 Episodic Menopausal disorders (11 sources) Primary ovarian failure; Translations: [Other primary ovarian failure] Onset: 8 Resolved: 3 03-30-2023 Chronic Mood disorders (20 sources) Acute depression; Translations: [Major depressive disorder, single episode, unspecified] Onset: 6 Resolved: 3 03-30-2023 Chronic Nutritional deficiencies (3 sources) Vitamin D deficiency; Translations: [Vitamin D deficiency, unspecified] Onset: 1 03-30-2023 Chronic Occlusion or stenosis of precerebral arteries (11 sources) Atherosclerosis of right carotid artery; Translations: [Occlusion and stenosis of right carotid artery] Onset: 6 03-30-2023 Chronic Osteoarthritis (20 sources) Degenerative joint disease involving multiple joints; Translations: [Polyosteoarthritis, unspecified] Onset: 3 Chronic Osteoporosis (12 sources) Osteoporosis; Translations: [Age-related osteoporosis without current pathological fracture] Onset: 5 08-03-2016 Chronic Other acquired deformities (8 sources) Kyphosis of thoracic spine; Translations: [Unspecified kyphosis, thoracic region] Onset: 3 03-30-2023 Chronic Other aftercare (16 sources) Drug therapy finding; Translations: [Long-term (current) use of other medications] Episodic Other aftercare (2 sources) Taking high risk medication; Translations: [Other long term care phlebotomist (current) drug therapy] Onset: 3 10-27-2023 Episodic Other and ill-defined heart disease (8 sources) Cardiomegaly; Translations: [Cardiomegaly] Onset: 5 04-09-2023 Chronic Other and unspecified benign neoplasm (5 sources) Tubular adenoma of colon; Translations: [Benign neoplasm of colon, unspecified] Episodic Other circulatory disease (8 sources) Cardiac implant in situ; Translations: [Presence of cardiac and vascular implant and graft, unspecified] Onset: 8 03-30-2023 Chronic Other connective tissue disease (5 sources) Presence of right artificial shoulder joint; Translations: [Presence of right artificial shoulder joint] Chronic Other connective tissue disease (5 sources) Viral myalgia; Translations: [Myalgia] Episodic Other connective tissue disease (1 source) Pain in right foot; Translations: [PAIN IN RIGHT FOOT] Onset: 3 Episodic Other connective tissue disease (3 sources) Rhabdomyolysis; Translations: [Rhabdomyolysis] 09-04-2021 Episodic Other ear and sense organ disorders (3 sources) Asymmetrical sensorineural hearing loss; Translations: [Sensorineural hearing loss, bilateral] Onset: 3 03-30-2023 Chronic Other gastrointestinal disorders (8 sources) Irritable bowel syndrome with diarrhea; Translations: [Irritable bowel syndrome with diarrhea] Onset: 9 03-30-2023 Chronic Other gastrointestinal disorders (5 sources) Heartburn; Translations: [Heartburn] Episodic Other inflammatory condition of skin (8 sources) Perioral dermatitis; Translations: [Perioral dermatitis] Onset: 3 03-30-2023 Chronic Other injuries and conditions due to external causes (18 sources) At risk for falls ; Translations: [History of fall] Onset: 3 10-27-2023 Episodic Other injuries and conditions due to external causes (3 sources) Hypothermia; Translations: [Hypothermia, initial encounter] 09-04-2021 Episodic Other lower respiratory disease (5 sources) Acute exacerbation of chronic obstructive airways disease; Translations: [Other disorders of lung] Episodic Other lower respiratory disease (3 sources) Dyspnea; Translations: [Dyspnea, unspecified] 11-26-2019 Episodic Other nervous system disorders (8 sources) Chronic pain; Translations: [Other chronic pain] Onset: 5 04-09-2023 Chronic Other nervous system disorders (1 source) Other chronic pain; Translations: [OTHER CHRONIC PAIN] Onset: 2 Chronic Other nervous system disorders (3 sources) Carpal tunnel syndrome; Translations: [Carpal tunnel syndrome, unspecified upper limb] Onset: 3 03-30-2023 Chronic Other nervous system disorders (3 sources) Difficulty walking; Translations: [Difficulty in walking, not elsewhere classified] Onset: 7 03-30-2023 Chronic Other non-traumatic joint disorders (4 sources) Pain in right hip; Translations: [PAIN IN RIGHT HIP] Onset: 3 Episodic Other non-traumatic joint disorders (1 source) Pain in right knee; Translations: [PAIN IN RIGHT KNEE] Onset: 3 Episodic Other non-traumatic joint disorders (1 source) Pain in left knee Episodic Other non-traumatic joint disorders (1 source) Chronic pain of left upper limb; Translations: [Pain in left shoulder] 07-06-2020 Episodic Other non-traumatic joint disorders (7 sources) Pain in right shoulder; Translations: [Pain in joint, shoulder region] Onset: 4 06-19-2014 Episodic Other nutritional; endocrine; and metabolic disorders (3 sources) Hypocalcemia; Translations: [Hypocalcemia] Onset: 1 03-30-2023 Chronic Other nutritional; endocrine; and metabolic disorders (16 sources) Overweight in adulthood with body mass index of 25 or more but less than 30; Translations: [Overweight] Episodic Other upper respiratory disease (11 sources) Allergic rhinitis; Translations: [Other allergic rhinitis] Onset: 5 Resolved: 3 03-30-2023 Chronic Other upper respiratory infections (5 sources) Upper respiratory infection; Translations: [Acute upper respiratory infection, unspecified] 12-02-2019 Episodic Otitis media and related conditions (3 sources) Acute transudative otitis media; Translations: [Other acute nonsuppurative otitis media, right ear] 12-20-2021 Episodic Residual codes; unclassified (3 sources) Insomnia co-occurrent and due to medical condition; Translations: [Insomnia due to medical condition] Onset: 3 08-30-2023 Chronic Residual codes; unclassified (3 sources) Insomnia; Translations: [Insomnia, unspecified] 09-14-2021 Episodic Rheumatoid arthritis and related disease (12 sources) Rheumatoid arthritis; Translations: [Rheumatoid arthritis, unspecified] Onset: 4 Resolved: 3 02-14-2014 Chronic Skull and face fractures (6 sources) Fracture of base of skull; Translations: [Fracture of base of skull, unspecified side, initial encounter for closed fracture] 09-04-2021 Episodic Spondylosis; intervertebral disc disorders; other back problems (20 sources) Degeneration of lumbar intervertebral disc; Translations: [Other intervertebral disc degeneration, lumbar region] Onset: 5 Chronic Sprains and strains (7 sources) Strain of unspecified muscle, fascia and tendon at shoulder and upper arm level, left arm, initial encounter; Translations: [Strain of unspecified muscle, fascia and tendon at shoulder and upper arm level, left arm, subsequent encounter] Onset: 2 Resolved: 2 Episodic Syncope (8 sources) Vasovagal symptom; Translations: [Syncope and collapse] 10-25-2021 Episodic Unclassified (4 sources) LOW BACK PAIN, UNSPECIFIED; Translations: [LOW BACK PAIN, UNSPECIFIED] Onset: 2 Unclassified (1 source) Pain in left knee; Translations: [Pain in left knee] Onset: 3 Past or Other Problems Problem Classification Problem Date Documented Da te Episodic/Chronic Abdominal hernia (9 sources) Hiatal hernia; Translations: [Diaphragmatic hernia without obstruction or gangrene] Onset: 09-25-2015 06-13-2016 Episodic Conditions associated with dizziness or vertigo (9 sources) Dizziness; Translations: [Dizziness and giddiness] Onset: 12-19-2023 12-20-2021 Episodic Coronary atherosclerosis and other heart disease (2 sources) Presence of aortocoronary bypass graft; Translations: [Presence of aortocoronary bypass graft] Onset: 10-27-2023 Episodic Deficiency and other anemia (3 sources) Anemia; Translations: [Anemia, unspecified] Onset: 04-15-2017 03-30-2023 Episodic Immunizations and screening for infectious disease (3 sources) Anti-nuclear factor positive; Translations: [Other specified abnormal immunological findings in serum] Onset: 03-30-2023 03-30-2023 Episodic Mood disorders (5 sources) Mood disorders Onset: 01-25-2022 Resolved: 08-03-2023 08-03-2023 Other acquired deformities (8 sources) Spondylolisthesis; Translations: [Spondylolisthesis, site unspecified] Onset: 04-09-2023 04-09-2023 Episodic Other acquired deformities (3 sources) Acquired spondylolisthesis; Translations: [Spondylolisthesis, site unspecified] Onset: 01-29-2019 03-30-2023 Episodic Other aftercare (2 sources) Other long term care phlebotomist (current) drug therapy; Translations: [Other assisted (current) drug therapy] Onset: 10-27-2023 Episodic Other bone disease and musculoskeletal deformities (8 sources) Arrest of bone development AND/OR growth; Translations: [Other disorders of bone development and growth, unspecified site] Onset: 09-25-2015 03-30-2023 Episodic Other bone disease and musculoskeletal deformities (1 source) Other specified disorders of bone density and structure, unspecified site; Translations: [OTH D/O BONE DEN STRUCT UNS SITE] Onset: 06-23-2022 Episodic Other circulatory disease (3 sources) Orthostatic hypotension; Translations: [Orthostatic hypotension] Onset: 04-15-2017 03-30-2023 Episodic Other connective tissue disease (1 source) Muscle wasting and atrophy, not elsewhere classified, unspecified site; Translations: [MUSCLE WASTING ATROPHY NEC UNS SITE] Onset: 09-07-2022 Episodic Other connective tissue disease (4 sources) Adhesive capsulitis of right shoulder; Translations: [Adhesive capsulitis of right shoulder] Onset: 04-30-2012 04-30-2012 Episodic Other connective tissue disease (4 sources) Unspecified rotator cuff tear or rupture of unspecified shoulder, not specified as traumatic; Translations: [Rotator cuff (capsule) sprain] Onset: 04-30-2012 04-30-2012 Episodic Other connective tissue disease (3 sources) Muscle weakness; Translations: [Muscle weakness (generalized)] Onset: 04-15-2017 03-30-2023 Episodic Other connective tissue disease (3 sources) Recurrent falls ; Translations: [Repeated falls] Onset: 11-02-2021 03-30-2023 Episodic Other connective tissue disease (3 sources) Fibromyalgia; Translations: [Fibromyalgia] Onset: 04-09-2023 04-09-2023 Episodic Other connective tissue disease (3 sources) Muscle pain; Translations: [Myalgia, unspecified site] Onset: 06-30-2021 Resolved: 08-03-2023 08-03-2023 Episodic Other ear and sense organ disorders (8 sources) Sensorineural hearing loss, bilateral; Translations: [Sensorineural hearing loss, bilateral] Onset: 08-28-2016 Resolved: 08-03-2023 08-03-2023 Chronic Other gastrointestinal disorders (6 sources) Diarrhea; Translations: [Diarrhea, unspecified] Onset: 02-14-2014 02-14-2014 Episodic Other gastrointestinal disorders (3 sources) History of gastritis; Translations: [Personal history of other diseases of the digestive system] Onset: 06-30-2021 03-30-2023 Episodic Other hematologic conditions (4 sources) ESR raised; Translations: [Elevated erythrocyte sedimentation rate] Onset: 09-26-2011 09-26-2011 Episodic Other injuries and conditions due to external causes (4 sources) Fracture of bone; Translations: [Other injury of unspecified body region, initial encounter] Onset: 09-26-2011 Resolved: 08-03-2023 09-26-2011 Episodic Other injuries and conditions due to external causes (4 sources) H/O: vertebral fracture; Translations: [Personal history of (healed) traumatic fracture] Onset: 01-20-2017 01-20-2017 Episodic Other injuries and conditions due to external causes (2 sources) History of falling; Translations: [History of falling] Onset: 10-27-2023 Episodic Other lower respiratory disease (8 sources) Dyspnea on exertion; Translations: [Other forms of dyspnea] Onset: 04-27-2018 03-30-2023 Episodic Other lower respiratory disease (3 sources) Disorder of lung; Translations: [Other disorders of lung] Onset: 07-26-2016 03-30-2023 Episodic Other nervous system disorders (3 sources) Incoordination; Translations: [Other lack of coordination] Onset: 04-15-2017 03-30-2023 Episodic Other nervous system disorders (3 sources) Skin sensation disturbance; Translations: [Unspecified disturbances of skin sensation] Onset: 05-22-2023 05-22-2023 Episodic Other nervous system disorders (3 sources) Numbness and tingling sensation of skin; Translations: [Anesthesia of skin] Onset: 06-20-2023 06-20-2023 Episodic Other nervous system disorders (3 sources) Abnormal gait; Translations: [Unspecified abnormalities of gait and mobility] Onset: 05-22-2023 Resolved: 08-03-2023 08-03-2023 Episodic Other non-traumatic joint disorders (4 sources) Pain in left shoulder; Translations: [Left shoulder pain] Onset: 07-26-2023 Episodic Other non-traumatic joint disorders (4 sources) Multiple joint pain; Translations: [Pain in unspecified joint] Onset: 02-14-2014 02-14-2014 Episodic Other non-traumatic joint disorders (3 sources) Trochanteric bursitis; Translations: [Pain in unspecified hip] Onset: 03-04-2019 03-30-2023 Episodic Other non-traumatic joint disorders (3 sources) Pain of right wrist; Translations: [Pain in right wrist] Onset: 03-30-2023 03-30-2023 Episodic Other upper respiratory disease (4 sources) Congestion of nasal sinus; Translations: [Nasal congestion] Onset: 09-30-2013 Resolved: 08-03-2023 09-30-2013 Episodic Pathological fracture (4 sources) History of pathological fracture; Translations: [Personal history of (healed) other pathological fracture] Onset: 03-02-2016 03-02-2016 Episodic Residual codes; unclassified (16 sources) H/O: anticoagulant therapy; Translations: [Personal history of other drug therapy] Resolved: 01-25-2022 Episodic Residual codes; unclassified (6 sources) Other specified postprocedural states Onset: 09-27-2021 Resolved: 05-16-2022 Episodic Residual codes; unclassified (4 sources) Drug therapy status; Translations: [Personal history of other drug therapy] Onset: 09-18-2015 08-03-2016 Episodic Spondylosis; intervertebral disc disorders; other back problems (20 sources) Lumbosacral neuritis; Translations: [Radiculopathy, lumbosacral region] Onset: 06-19-2014 06-19-2014 Episodic Unclassified (16 sources) Never smoked tobacco; Translations: [Never a smoker] Unclassified (1 source) LOW BACK PAIN, UNSPECIFIED; Translations: [LOW BACK PAIN, UNSPECIFIED] Onset: 06-21-2022 Unclassified (2 sources) Onset: 12-19-2023 12-19-2023 Results Test Name Value Interpretation Reference Range Facility XR shoulder RT min 2V*on XR shoulder RT min 2V* [facility] [address] [place] [address] XRay Report Signed Patient: Sanaz Oliveira MR#: [id number] 6 : 1945 Acct:[id number] Age/Sex: 78 / F ADM Date: 03/11/24 Loc: [facility] Room: Type: [facility] Attending Dr: Eladio Posada DO Copies to: Eladio Posada DO Ordering Provider: Eladio Posada DO Date of Service: 03/11/24 XR/XR shoulder RT min 2V*: M25.511 - Pain in right shoulder RIGHT SHOULDER - 3 views CLINICAL HISTORY: Previous humerus fracture with fixation. Continued arm pain. COMPARISON 04/29/2022 AP, Y and Grashey views were obtained. There is osteopenia. A reverse shoulder prosthesis is again noted, unchanged in position. There is redemonstration of a plate along the medial aspect of the humeral shaft with multiple screws and a cerclage wire. There is suspected underlying chronic fracture deformity at the humeral shaft, unchanged from the comparison. There is no developing fracture or dislocation. There is mild hypertrophic degenerative change at the acromioclavicular joint and acromion. There are no significant soft tissue abnormalities. XR/XR shoulder RT min 2V* IMPRESSION: OSTEOPENIA WITH SIMILAR POSTOPERATIVE AND POSTTRAUMATIC CHANGES. NO ACUTE BONY FINDINGS. Impression dictated by: Dea Rice M.D.03/11/2024 5:55 PM Dictation Location: [place] [address] Transcribed By: [facility] 03/11/241754 Dictated By: Dea Rice MD 03/11/241751 Signed By: 03/11/24 175 Normal [facility] US CAROTID ARTERY DUPLE X BILATERALon 01-16-2024 [facility] US CAROTID ARTERY DUPLEX BILATERAL [address], [address] [place] [address] Vascular Lab Report [facility] US CAROTID ARTERY DUPLEX BILATERAL Patient Name: SANAZ ANTONIO Almeida Physician: [id number] Tawnya Fontana MD, [facility] Study Date: 01/16/2024 Ordering Provider: [id number] TAWNYA FONTAAN MRN/PID: [id number] Fellow: Technologist: Farheen Bundy [facility], T Date of /Age: 11 1945 / 78 years Technologist 2: Gender: F Admission Status: Outpatient Location Performed: [facility] Diagnosis/ICD: Dizziness and giddiness-R42 Indication: CAD, CABG-2017, Paroxysmal Atrial Fibrillation, Overweight, PVC's, HTN, Hyperlipidemia CPT Codes: 40577 Cerebrovascular Carotid Duplex scan complete CONCLUSIONS: Right Carotid: Findings are consistent with less than 50% stenosis of the right proximal internal carotid artery. Laminar flow seen by color Doppler. Right external carotid artery appears patent with no evidence of stenosis. No evidence of hemodynamically significant stenosis of the right common carotid artery. The right vertebral artery is patent with antegrade flow. Left Carotid: Findings are consistent with 50 to 69% stenosis of the left proximal internal carotid artery. Laminar flow seen by color Doppler. Left external carotid artery appears patent with no evidence of stenosis. No evidence of hemodynamically significant stenosis of the left common carotid artery. The left vertebral artery is patent with antegrade flow. Imaging & Doppler Findings: Right Plaque Morph: The proximal right internal carotid artery demonstrates irregular and calcified plaque. The proximal right external carotid artery demonstrates irregular and calcified plaque. The distal right common carotid artery demonstrates irregular and calcified plaque. Left Plaque Morph: The proximal left internal carotid artery demonstrates irregular and calcified plaque. The proximal left external carotid artery demonstrates irregular and calcified plaque. The distal left common carotid artery demonstrates irregular and calcified plaque. Right Left PSV EDV PSV EDV 76 cm/s 14 cm/s CCA P 86 cm/s 20 cm/s 74 cm/s 19 cm/s CCA M 93 cm/s 23 cm/s 82 cm/s 21 cm/s CCA D 70 cm/s 20 cm/s 91 cm/s 19 cm/s ICA P 81 cm/s 22 cm/s 99 cm/s 25 cm/s ICA M 131 cm/s 43 cm/s 106 cm/s 31 cm/s ICA D 109 cm/s 38 cm/s 96 cm/s ECA 78 cm/s 50 cm/s Vertebral 47 cm/s Right Left ICA/CCA Ratio 1.1 1.2 [id number] Tawnya Fontana MD, FACC Final [facility] Office Visit (Cardiology)on 06-30-2023 Follow-up visit Diagnoses/Problems Assessed Coronary artery disease involving lower [place] coronary artery of lower [place] heart without angina pectoris (414.01) (I25.10) HLD (hyperlipidemia) (272.4) (E78.5) High risk medication use (V58.69) (Z79.899) Paroxysmal atrial fibrillation (427.31) (I48.0) Overweight with body mass index (BMI) of 28 to 28.9 in adult (278.02,V85.24) (E66.3,Z68.28) Never a smoker PVC (premature ventricular contraction) (427.69) (I49.3) History of coronary artery bypass graft (V45.81) (Z95.1) Orders Coronary artery disease involving lower [place] coronary artery of lower [place] heart without angina pectoris Renew: Aspirin 81 MG Oral Tablet Delayed Release; TAKE 1 TABLET DAILY AST; Status:Active - Retrospective Authorization; Requested for:[id number]; Coronary artery disease involving lower [place] coronary artery of lower [place] heart without angina pectoris, High risk medication use, HLD (hyperlipidemia) Lipid Panel; Status:Active - Retrospective Authorization; Requested for:[id number]; ALT - Alanine Aminotransferase, Serum; Status:Active - Retrospective Authorization; Requested for:30Jun2023; Basic Metabolic Panel; Status:Active - Retrospective Authorization; Requested for:[id number]; Complete Blood Count; Status:Active - Retrospective Authorization; Requested for:[id number]; HLD (hyperlipidemia) Renew: Atorvastatin Calcium 40 MG Oral Tablet (Lipitor); TAKE 1 TABLET AT BEDTIME Overweight with body mass index (BMI) of 28 to 28.9 in adult Healthy Weight Tips; Status:Complete - Retrospective Authorization; Done: 30Jun2023 Some eating tips that can help you lose weight.; Status:Complete - Retrospective Authorization; Done: 30Jun2023 Paroxysmal atrial fibrillation Renew: Sotalol HCl - 80 MG Oral Tablet; TAKE 1/2 TBALET DAILY IO EKG Electrocardiogram- 12 Lead; Status:Active - Perform Order,Retrospective Authorization; Requested for:[id number]; SocHx: Never a smoker Tobacco Use Screening; Status:Complete; Done: 30Jun2023 Patient Instructions Please bring all medicines, vitamins, and herbal supplements with you when you come to the office. Prescriptions will not be filled unless you are compliant with your follow up appointments or have a follow up appointment scheduled as per instruction of your physician. Refills should be requested at the time of your visit. Chief Complaint SANAZ OLIVEIRA is being seen for a 9 month follow-up of. Patient is in the office for follow-up for the problems noted below. She has done well since her last visit and when we tested her rhythm with a monitor for 24 hours she had a marked drop in the volume of PVCs while she is on magnesium. She feels well with no palpitations and no breakthrough atrial fibrillation despite the fact that she is on a very small amount of sotalol. She is not anticoagulated by choice and because of risk of falling down. EKG confirmed normal sinus rhythm today. Examination was essentially normal except for slight overweight. She needs lab data which I requested. Assessment/recommendat ion: 1?paroxysmal atrial fibrillation on 40 mg daily of sotalol and in sinus rhythm, due to recurrent major falls currently not anticoagulated due to high risk of anticoagulants with recurrent falls. 2?coronary artery disease with previous coronary artery bypass surgery in [place]. We do not have details of the bypass from 2017. Nuclear stress test 2019 was normal. Currently on statin and aspirin. 3?hypertension currently under control medical therapy which will continue unchanged 4?dyslipidemia on statin therapy lab data were ordered 5?overweight, patient has been actively trying to lose weight and has been succeeding in doing so. 6?high risk medication with antiarrhythmic therapy utilizing sotalol. 7?large volume of PVCs at 12% on previous Holter monitor. A follow-up Holter monitor since last visit showed only 1500 PVCs while she is on magnesium and remains asymptomatic. She was very happy to hear that. Surgical History Problems History of Carpal tunnel surgery History of Cataract surgery History of Complete colonoscopy History of Femur fracture repair History of Foot neuroma excision History of Foot surgery History of Shoulder replacement History of Tonsillectomy with adenoidectomy History of Tubal ligation History of Wrist surgery Past Medical History Problems History of anticoagulant therapy (V87.49) (Z92.29) Resolved Date: 25 Jan 2022 Current Meds Medication NameInstruction Acetaminophen 500 MG Oral TabletTAKE 1 TABLET EVERY 4 TO 6 HOURS NEEDED. Albuterol Sulfate HFA 108 (90 Base) MCG/ACT Inhalation Aerosol SolutionINHALE 1 TO 2 PUFFS EVERY 4 TO 6 HOURS NEEDED. Aspirin 81 MG Oral Tablet Delayed ReleaseTAKE 1 TABLET DAILY. Atorvastatin Calcium 40 MG Oral TabletTAKE 1 TABLET AT BEDTIME Krill Oil 500 MG Oral CapsuleTAKE 1 CAPSULE Daily Latanoprost 0.005 % Ophthalmic SolutionINSTILL 1 DROP IN BOTH EYES AT BEDTIME. Lyrica CAPSTAKE 1 CAPSULE Daily Magnesium (more content not included)... Normal [employer] Tobacco Screening.on 023 Fall risk assessment a) No falls within the last year -[facility] [place] 250 DO Work Phone: Tobacco use status CP b) No [facility] 250 DO Work Phone: Tobacco Screening. Yes [facility] 250 DO Work Phone: XR knee LT 3V - NOT FOR ER U Allyson 05-31-2023 XR knee LT 3V - NOT FOR ER USE [facility] Main [place] [address] [place] [id number] XRay Report Signed Patient: Sanaz Oliveira MR#: [id number] 6 : 1945 Acct:[id number] Age/Sex: 77 / F ADM Date: 05/31/23 Loc: [facility] Room: Type: [facility] Attending Dr: Eladio Posada DO Copies to: Eladio Posada DO Ordering Provider: Eladio Posada DO Date of Service: 05/31/23 XR/XR knee LT 3V - NOT FOR ER USE: Acute pain of left knee ([id number]) XR/XR shoulder LT min 2V*: Acute pain of left shoulder LEFT SHOULDER - - 4 views, left knee 3 views CLINICAL HISTORY: Anterior left shoulder pain for years. Left medial/lateral knee pain with weakness for months. COMPARISON: None FINDINGS: Left shoulder: Moderate degenerative changes of the AC and glenohumeral joints with narrowing of the subacromial space suggestive of chronic rotator cuff pathology. No acute bony process is seen. Left knee: Partially visualized femur hardware is noted. No knee joint effusion. Mild degenerative changes of the left knee without acute bony process. No significant joint space narrowing. XR/XR shoulder LT min 2V* IMPRESSION: MODERATE DEGENERATIVE CHANGES OF THE LEFT SHOULDER WITHOUT ACUTE BONY PROCESS. MILD DEGENERATIVE CHANGES OF THE LEFT KNEE WITHOUT ACUTE BONY PROCESS. Impression dictated by: Shamir Delarosa Jr., D.O.05/31/2023 3:55 PM Dictation Location: [place] [address] Transcribed By: [facility] 05/31/23 1555 Dictated By: Shamir Delarosa Jr, DO 05/31/23 1554 Signed By: 05/31/23 155 Normal [facility] CT Abdomen/Pelvis w/ Contras ton 01-05-2023 CT Abdomen/Pelvis w/ Contrast Comparison: None. Findings: Lower chest: Emphysematous change. Median sternotomy. Liver: Normal in size, shape, and attenuation. Bile Ducts: Normal in caliber. Gallbladder: No stones or wall thickening. Pancreas: Normal without masses, cysts, ductal dilatation or calcification. Spleen: Normal in size without masses or calcifications. 9 mm splenule lateral to anterior spleen. Kidneys: Normal in size and enhancement. No hydronephrosis, masses, or stones. Focal cortical thinning posterior right midpole, and posterior left upper, mid, and lower pole. Adrenals: Normal. Small bowel: Normal in caliber. Appendix: Not visualized. Colon: Normal in caliber. Diffuse diverticular change, sigmoid colon. Peritoneum: No ascites, free air, or fluid collections. Vessels: Aorta normal in course and caliber. Portal vein, splenic vein, superior mesenteric vein are patent. Lymph nodes: Retroperitoneal: No enlarged retroperitoneal lymph nodes. Mesenteric: No enlarged mesenteric lymph nodes. Pelvic: No enlarged pelvic lymph nodes. Ureters: Normal in course and caliber. No calcifications. Bladder: No wall thickening. Reproductive organs: No pelvic masses. Abdominal Wall: No hernia identified. No diastasis of rectus musculature. No edema or masses. Bones: No bone lesions. Lumbar scoliosis, convexity to right, apex L3-L4. 8.7 mm anterolisthesis L5 on S1. Diffuse disc space narrowing L5-S1 with posterior disc space narrowing L1-L2 through L3-L4. Diffuse disc space narrowing lower thoracic spine. No post operative changes. IMPRESSION: Sigmoid diverticulosis. Bilateral renal cortical thinning, greater on left. Probable emphysema. All CT scans at this facility use dose modulation, iterative reconstruction, and/or weight based dosing when appropriate to reduce radiation dose to as low as reasonably achievable. Report reported and signed by Bernabe Figueroa on 01/05/2023 1635 Normal [facility] Specialist Cardiovasc Arrhythmia Result son 09-22-2022 Cardiovasc Arrhythmia Results Reason For Visit Reason for Visit: Holter Monitor: SANAZ is here for the application of a 24 hour Holter monitor. Ordering Physician: Dr. Tawnya Fontana MD Diagnosis: afib, pvc [employer] equipment agreement signed. SANAZ understands monitor is to be returned on: 09/23/2022 Monitor number [id number] applied. Holter monitor returned and downloaded. Holter monitor printed and placed on Dr. Tawnya Fontana MD desk to dictate. Procedure 1?the rhythm is sinus throughout the recording with an average heart rate of 65 bpm, and the minimum heart rate was 47 bpm sinus bradycardia 12:46 AM and maximal heart rate was 100 bpm sinus rhythm at 11:22 AM. 2?frequent premature ventricular complexes. They were majority in isolated beats. The total number was 1576 beats. 1 event of ventricular triplet and 7 events of ventricular couplets were noted, none of which were symptomatic 3?infrequent mostly isolated premature atrial complexes. There was 191 beats in total. 2 atrial runs were noted the longest was for 4 beats atrial tachycardia at a rate of 133 bpm. 10 atrial couplets were seen. The atrial arrhythmias were not symptomatic 4?no pauses exceeding 2 seconds were seen. 5?no symptoms on the patient's diary. Conclusion: 24-hour Holter monitor that demonstrated sinus rhythm mechanism throughout with an average heart rate of 65 bpm. No significant bradycardia or tachycardia were seen. Frequent mostly isolated PVCs and infrequent isolated PACs were noted. There were 7 ventricular couplets and 10 atrial couplets, 1 event of ventricular triplet was noted and a 4 beat run of atrial tachycardia was seen. No symptoms were noted in the patient's diary and no pauses exceeding 2 seconds were seen Diagnosis/Problems Assessed Atrial fibrillation (427.31) (I48.91) PVC (premature ventricular contraction) (427.69) (I49.3) Future Appointments Date/TimeProviderSpeci altySite 03/16/2023 10:40 Tawnya Cr, [id number] [facility] [address] [place] 250 DO Signatures Electronically signed by : Tawnya Fontana MD; Sep 30 2022 2:33PM EST (Author) Normal [employer] Office Visit (Cardiology)on 2022 Follow-up visit Diagnoses/Problems Assessed Atrial fibrillation (427.31) (I48.91) High risk medication use (V58.69) (Z79.899) Coronary artery disease involving lower sioux coronary artery of lower sioux heart without angina pectoris (414.01) (I25.10) History of coronary artery bypass graft (V45.81) (Z95.1) HLD (hyperlipidemia) (272.4) (E78.5) Overweight with body mass index (BMI) of 27 to 27.9 in adult (278.02,V85.23) (E66.3,Z68.27) PVC (premature ventricular contraction) (427.69) (I49.3) Orders Atrial fibrillation, PVC (premature ventricular contraction) Holter Monitor 24-48 Hours; Status:Hold For - Scheduling,Retrospecti ve Authorization; Requested for:15Sep2022; IO EKG Electrocardiogram- 12 Lead; Status:Complete; Done: 15Sep2022 Overweight with body mass index (BMI) of 27 to 27.9 in adult Healthy Weight Tips; Status:Complete - Retrospective Authorization; Done: 15Sep2022 Patient Instructions Please bring all medicines, vitamins, and herbal supplements with you when you come to the office. Prescriptions will not be filled unless you are compliant with your follow up appointments or have a follow up appointment scheduled as per instruction of your physician. Refills should be requested at the time of your visit. Fall prevention education given labs reviewed with pt- scanned to chart obtain lipid from PCP Follow up in 6 months No need for lasix Chief Complaint SANAZ OLIVEIRA is being seen for a 6 month follow-up of. Patient is in the office for follow-up for the problems noted below. She currently has no areas that she was concerned about. She does have lymphedema for which I advised her not to take Lasix for but use compression stockings and elevation when she is not standing. She has remained in normal sinus rhythm on sotalol but she takes only 40 mg daily. She has been taken off of the anticoagulant due to recurrent falls and there has been no bleeding complications and no recurrent atrial fibrillation and no major falls. She had blood work that she provided to me for review and I did review it with her. His most recent lipid profile which we will investigate from her PCP if they have not done it we will order a lipid profile. Patient was placed on magnesium last visit because of high volume of PVCs at 12%. She is not on beta-blockers because of history of bradycardia. We will repeat 24-hour Holter monitor to remeasure the volume of PVCs. Assessment/recommendat ion: 1?paroxysmal atrial fibrillation on 40 mg daily of sotalol and in sinus rhythm, due to recurrent major falls currently not anticoagulated due to high risk of anticoagulants with recurrent falls. 2?coronary artery disease with previous coronary artery bypass surgery in [place]. We do not have details of the bypass from 2017. Nuclear stress test 2019 was normal. Currently on statin and aspirin. 3?hypertension currently under control medical therapy which will continue unchanged 4?dyslipidemia on statin therapy lab data from PCP were requested 5?overweight, patient has been actively trying to lose weight and has been succeeding in doing so. 6?high risk medication with antiarrhythmic therapy utilizing sotalol. 7?lymphedema treated with compression stockings no diuretics are needed 8?large volume of PVCs at 12% of total QRS complexes by Holter monitor 2021. Magnesium oxide 400 mg daily has been tolerated. Repeat 24-hour Holter monitor is recommended 9?increased depression score, advised patient to discuss with family physician Surgical History Problems History of Carpal tunnel surgery History of Cataract surgery History of Complete colonoscopy History of Femur fracture repair History of Foot neuroma excision History of Foot surgery History of Shoulder replacement History of Tonsillectomy with adenoidectomy History of Tubal ligation History of Wrist surgery Past Medical History Problems History of anticoagulant therapy (V87.49) (Z92.29) Resolved Date: 25 Jan 2022 Current Meds Medication NameInstruction Acetaminophen 500 MG Oral TabletTAKE 1 TABLET EVERY 4 TO 6 HOURS NEEDED. Albuterol Sulfate HFA 108 (90 Base) MCG/ACT Inhalation Aerosol SolutionINHALE 1 TO 2 PUFFS EVERY 4 TO 6 HOURS NEEDED. Aspirin 81 MG Oral Tablet Delayed ReleaseTAKE 1 TABLET DAILY. Atorvastatin Calcium 40 MG Oral TabletTAKE 1 TABLET AT BEDTIME. Gabapentin 100 MG Oral CapsuleTAKE 1 CAPSULE TWICE DAILY. Krill Oil 500 MG Oral CapsuleTAKE 1 CAPSULE Daily Latanoprost 0.005 % Ophthalmic SolutionINSTILL 1 DROP IN BOTH EYES AT BEDTIME. Magnesium Oxide 400 MG Oral TabletTAKE 1 TABLET DAILY. Montelukast Sodium 10 MG Oral TabletTAKE 1 TABLET BY MOUTH ONCE DAILY Roscoe 3 1000 MG Oral CapsuleTAKE 1 CAPSULE Daily TABSTake 1 tablet daily Restasis 0.05 % Ophthalmic Emulsion Sotalol HCl - 80 MG Oral TabletTAKE 1/2 TBALET DAILY Trelegy Ellipta 100-62.5-25 MCG/ACT Inhalation Aerosol Powder Breath Activated Trintellix 10 MG Oral TabletTake 1 tablet daily Turmeric Curcum (more content not included)... Normal [employer] Tobacco Screening.on Fall risk assessment b) One or more falls in the last year [facility] [place] 250 DO Work Phone: Tobacco use status [facility] b) No [facility] Work Phone: Tobacco Screening. Yes [facility] [place] 250 DO Work Phone: XR LSPINE MIN 4 VIEWSon 06-06 XR LSPINE MIN 4 VIEWS EXAMINATION: XR LSPINE MIN 4 VIEWS HISTORY: Low back pain , right leg pain COMPARISON: XR lumbar spine 01/16/2017 FINDINGS: BONES: Left convex curvature lumbar spine with moderate right lateral wedging, and mild anterior wedging of L3 vertebral body. Moderate-marked degenerative facet arthropathy L3-L4 through L5-S1. Distal middle variant partial sacralization of L5 on left side. DISC SPACES: Moderate narrowing L2-L3 through L5-S1. PARASPINOUS: Negative. No paraspinous abnormality is seen. OTHER: Negative. IMPRESSION: 1. Slight progression of multilevel moderate marked chronic degenerative changes. 2. No appreciable acute abnormality. Electronically authenticated by: ANIKET HERBERT Date: 2022-06-22 13:15 Normal [facility] Tobacco Screening.on 022 Adult depression screening assessment Yes [facility] [place] 250 DO Work Phone: Fall risk assessment b) One or more falls in the last year [facility] DO Work Phone: Tobacco use status [facility] b) No [facility] [place] 250 DO Work Phone: Tobacco Screening. 2-More than half the days [facility] [place] 250 DO Work Phone: Tobacco Screening. 3-Nearly every day -[facility] [place] 250 DO Work Phone: Tobacco Screening. 0-Not at all -[facility] 250 DO Work Phone: Tobacco Screening. Very Difficult -[facility] [place] 250 DO Work Phone: XR humerus RT*on 09-27-2021 XR humerus RT* [facility] [employer] Other XR humerus RT* [facility] [employer] Other XR humerus RT* [address] [place] [address] [employer] Other XR humerus RT* [place] [address] No rt [employer] Other XR humerus RT* XRay Report [employer] Other XR humerus RT* Signed [employer] Other XR humerus RT* Patient: Sanaz Oliveira MR#: [id number] [place] [employer] Other XR humerus RT* 6 [employer] Other XR humerus RT* : 1945 Acct:[id number] [employer] Other XR humerus RT* Age/Sex: 76 / F ADM Date: 09/27/21 [employer] Other XR humerus RT* Loc: [facility] Room: Type : [facility] [employer] Other XR humerus RT* Attending Dr: Eladio Posada DO [employer] Other XR humerus RT* Ordering Provider: Eladio Posada, DO [employer] Other XR humerus RT* Date of Service: 09/27/21 [employer] Other XR humerus RT* XR/XR humerus RT*: Other specified postprocedural states [employer] Other XR humerus RT* Copies to: Eladio Posada, [employer] Other XR humerus RT* Right humerus 09/27/2021. [employer] Other XR humerus RT* CLINICAL DATA: Follow-up right humerus fracture repair. [employer] Other XR humerus RT* FINDINGS: 2 views of the right humerus were obtained and are compared with a prior study 09/07/2021. [employer] Other XR humerus RT* There are postsurgic al changes related to internal fixation of a fracture of the mid shaft of the [employer] Other XR humerus RT* humerus with a plate and screws. The hardware appears intact and unchanged in position. Bony [employer] Other XR humerus RT* alignment appears stable. Skin hector remain present. There is evidence of prior right shoulder [employer] Other XR humerus RT* arthroplasty. [employer] Other XR humerus RT* XR/XR humerus RT* [employer] Other XR humerus RT* IMPRESSION: Stable postsurgical changes related to plate and screw fixation of a fracture of the mid [employer] Other XR humerus RT* shaft of the right humerus. [employer] Other XR humerus RT* Impression dictated by: Donavon Fisher Jr., M.D.09/27/2021 3:37 PM [employer] Other XR humerus RT* Dictation Location: [place] [address] [employer] Other XR humerus RT* Transcribed By: LIBRADO 09/27/21 [facility] [employer] Other XR humerus RT* Dictated By: Donavon Fisher Jr, MD 09/27/21 [facility] [employer] Other XR humerus RT* Signed By: Chad bucio [employer] Other XR humerus RT* 09/27/21 1537 Chad costello [employer] Other [facility] ([id number]) 1945 F Date Time Provider Department 06/19/21 ERROL BOURGEOIS During your visit today, we recorded the following information about you: Errlo Bourgeois MD 06/19/2021 11:58 AM Signed Please Call patient if MyChart note not read to review results/released to My Chart if tests completed at F: normal labs. Take over the counter vitamin D 1000?International Units daily with food. Happy to further review and discuss at follow up office visit. Continue rest of treatment plan per instructions at last office visit. Thank you. [facility]OM[facility] 05/31/21 normal calcium 9.4, vitamin D 86; 02/22/21 normal vitamin D 72, calcium 9.4; [place] BMD osteopenia 09/18/20 R fem neck 0.932g/cm2, tscore-0.8;R fem total 0.871g/cm2, tscore-1.1;L forema 0.561g/cm2, tscore-2.1; --- 08/24/20 normal vitamin D 67.8, calcium 9.3; Joshua Garcia MA 06/21/2021 8:09 AM Signed Lm regarding results and recommendations. Allergies As of Date: 06/19/2021 Noted Allergy Reaction CEFDINIR 07/01/2016 5 - Intolerance Comments: bleeding bowel CLINDAMYCIN 07/16/2013 2 - Rash CODEINE 02/04/2004 1 - Mental Status Change MINOCYCLINE 07/16/2013 14 - Other: See Comments Comments: hyperpigmentation PLAQUENIL (HYDROXYCHLOROQUINE SUL*12/24/2010 7 - Swelling Comments: Caused tongue swelling Date Reviewed: 02/22/2021 Reviewed by: Errol Bourgeois - Fully Assessed Reason for Visit: Results [95] Prescriptions as of 06/21/2021 - albuterol HFA (PROVENTIL HFA, VENTOLIN HFA) 90 mcg/actuation inhaler Albuterol Sulfate Active 2 PUFF Inhalation EVERY 4-6 HOURS November 26, 2019 1:36pm - acetaminophen (TYLENOL) 325 mg tablet 325 mg. - amLODIPine (NORVASC) 2.5 mg tablet 2.5 mg. - RESTASIS 0.05 % ophthalmic emulsion - latanoprost (XALATAN) 0.005 % ophthalmic solution instill 1 (ONE) DROP IN BOTH EYES AT BEDTIME - nystatin-triamcinolone (MYCOLOG) ointment APPLY TO THE AFFECTED AREA(S) TWICE DAILY (in morning and evening) - nystatin-triamcinolone (MYCOLOG II) cream nystatin-triamcinolone 100,000 unit/g-0.1 % topical cream - Magnesium Gluconate 30 mg (550 mg) tab 30 mg. - Cholecalciferol, Vitamin D3, 25 mcg (1,000 unit) cap Cholecalciferol (Vitamin D3) Active 1000 UNIT Oral Daily August 27, 2019 8:34am - ipratropium (ATROVENT) 0.02 % nebulizer solution 1 mL. - predniSONE (DELTASONE) 5 mg tablet Day 1=6tabs with food, Day 2=5tabs, Day 3=4tabs, Day 4=3tabs, Day 5=2tabs, Day 6=1tab, No NSAIDs on med - sotalol (BETAPACE) 80 mg tablet Take 80 mg by mouth once daily. half tablet - rivaroxaban (XARELTO) 20 mg tablet Take 20 mg by mouth daily with dinner. - atorvastatin (LIPITOR) 40 mg tablet Take 40 mg by mouth once daily. - aspirin, enteric coated (ASPIRIN, ENTERIC COATED) 81 mg EC tablet Take 81 mg by mouth as directed. 2 times a week - citalopram hydrobromide (CELEXA) 10 mg tablet Take 10 mg by mouth once daily. - furosemide (LASIX) 20 mg tablet Take 20 mg by mouth once daily. - ascorbic acid (VITAMIN C ORAL) Take by mouth once daily. - vitamin b complex capsule Take 1 capsule by mouth once daily. - OTC NUTRITIONAL SUPPLEMENT once daily. Toney Red - umeclidinium-vilantero l (ANORO ELLIPTA) 62.5-25 mcg/actuation inhaler Inhale 1 Inhalation as instructed once daily. - COMPOUNDED PRESCRIPTION Apply to affected area. given for hands - GABAPENTIN ORAL Take 100 mg by mouth twice daily. - MV,CA,MIN/IRON FUM/FA/VIT K (MULTI FOR HER ORAL) Take by mouth. 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] 04/30/2012 Rotator cuff tear [M75.100] 04/30/2012 Congestion of nasal sinus [R09.81] 09/30/2013 Rheumatoid arthritis of multiple sites without *02/14/2014 Secondary osteoarthritis of multiple sites [M15*02/14/2014 Multiple joint pain [M25.50] 02/14/2014 Diarrhea [R19.7] 02/14/2014 Cervicalgia [M54.2] 06/19/2014 Shoulder pain, right [M25.511] 06/19/2014 Personal history of other drug therapy [Z92.29] 09/18/2015 Personal history of (healed) other pathological* 6 Hiatal hernia [K44.9] 06/13/2016 Gastroesophageal reflux disease without esophag*06/13/2016 Senile osteoporosis [M81.0] 08/03/2016 Chronic bilateral low back pain with right-side*08/03/2016 Neutropenia (HCC) [D70.9] 12/29/2016 History of recurrent vertebral fractures [Z87.8*01/20/2017 Encounter Status:Closed by JOSHUA GARCIA MA on 06/21/21 [facility] Deanne 02-26-2021 DENISEN Telephone (JUAN JOSÉ) SANAZ OLIVEIRA ([id number]) 1945 F Date Time Provider Department 02/26/21 ERROL BOURGEOIS During your visit today, we recorded the following information about you: Errol Amina 02/26/2021 4:59 PM Signed Please Call patient if EverythingMehart note not read to review results/released to My Chart if tests completed at F: Received bone mineral density from 09/2020 showed osteopenia. normal labs. Continue over the counter vitamin D 2000?International Units daily with food. Recheck nonfasting labs in 3months.The orders have been placed.? Happy to further review and discuss at follow up office visit. Continue rest of treatment plan per instructions at last office visit. Thank you. 02/22/21 normal vitamin D 72, calcium 9.4; Oniel BMD osteopenia 09/18/20 R fem neck 0.932g/cm2, tscore-0.8;R fem total 0.871g/cm2, tscore-1.1;L forema 0.561g/cm2, tscore-2.1; --- 08/24/20 normal vitamin D 67.8, calcium 9.3; Nancy Estrada Ma 02/27/2021 1:30 PM Signed Left a message for the pt to call the office back regarding the message below. Evie Valero RN 03/01/2021 2:32 PM Signed Pt identified by name and Pt given message below Stated understanding Reminded 10-20 prolia injection Call transferred to lab scheduling to assist with appt scheduling Joshua Garcia MA 03/01/2021 2:33 PM Signed Lm regarding results and recommendations sent via [employer]. Irene Sapp 03/01/2021 2:50 PM Signed Patient would like to have orders for nonfasting labs sent to [facility] lab in [place]. Their fax number is [phone]. Please advise and contact patient when orders have been sent. Errol Amina 03/01/2021 7:15 PM Signed Please send orders to complete in 3months Fax results to rheum office Notify patient when above completed Thank you. Joshua Garcia MA 03/02/2021 12:07 PM Signed Pt is aware of Labs orders have been faxed to [facility]. Allergies As of Date: 02/26/2021 Noted Allergy Reaction CEFDINIR 07/01/2016 5 - Intolerance Comments: bleeding bowel CLINDAMYCIN 07/16/2013 2 - Rash CODEINE 02/04/2004 1 - Mental Status Change MINOCYCLINE 07/16/2013 14 - Other: See Comments Comments: hyperpigmentation PLAQUENIL (HYDROXYCHLOROQUINE SUL*12/24/2010 7 - Swelling Comments: Caused tongue swelling Date Reviewed: 02/22/2021 Reviewed by: Errol Bourgeois - Fully Assessed Reason for Visit: Results [95] Prescriptions as of 02/26/2021 Sig: ALBUTEROL SULFATE HFA 90 MCG/* Albuterol Sulfate Active 2 PU* ACETAMINOPHEN 325 MG TABLET 325 mg. AMLODIPINE 2.5 MG TABLET 2.5 mg. RESTASIS 0.05 % EYE DROPS IN * LATANOPROST 0.005 % EYE DROPS instill 1 (ONE) DROP IN BOTH * NYSTATIN-TRIAMCINOLONE 100,00* APPLY TO THE AFFECTED AREA(S)* NYSTATIN-TRIAMCINOLONE 100,00* nystatin-triamcinolone 100,00* MAGNESIUM GLUCONATE 30 MG (55* 30 mg. CHOLECALCIFEROL (VITAMIN D3) * Cholecalciferol (Vitamin D3) * IPRATROPIUM BROMIDE 0.02 % SO* 1 mL. PREDNISONE 5 MG TABLET Day 1=6tabs with food, Day 2=* SOTALOL 80 MG TABLET Take 80 mg by mouth once gui* RIVAROXABAN 20 MG TABLET Take 20 mg by mouth daily wit* ATORVASTATIN 40 MG TABLET Take 40 mg by mouth once gui* ASPIRIN 81 MG TABLET,DELAYED * Take 81 mg by mouth as direct* CITALOPRAM 10 MG TABLET Take 10 mg by mouth once gui* FUROSEMIDE 20 MG TABLET Take 20 mg by mouth once gui* VITAMIN C ORAL Take by mouth once daily. VITAMIN B COMPLEX CAPSULE Take 1 capsule by mouth once * OTC NUTRITIONAL SUPPLEMENT once daily. Toney Red UMECLIDINIUM 62.5 MCG-VILANTE* Inhale 1 Inhalation as instru* COMPOUNDED PRESCRIPTION Apply to affected area. give* GABAPENTIN ORAL Take 100 mg by mouth twice da* MULTI FOR HER ORAL Take by mouth. 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] 04/30/2012 Rotator cuff tear [M75.100] 04/30/2012 Congestion of nasal sinus [R09.81] 09/30/2013 Rheumatoid arthritis of multiple sites without *02/14/2014 Secondary osteoarthritis of multiple sites [M15*02/14/2014 Multiple joint pain [M25.50] 02/14/2014 Diarrhea [R19.7] 02/14/2014 Cervicalgia [M54.2] 06/19/2014 Shoulder pain, right [M25.511] 06/19/2014 Personal history of other drug therapy [Z92.29] 09/18/2015 Personal history of (healed) other pathological* 6 Hiatal hernia [K44.9] 06/13/2016 Gastroesophageal reflux disease without esophag*06/13/2016 Senile osteoporosis [M81.0] 08/03/2016 Chronic bilateral low back pain with right-side*08/03/2016 Neutropenia (HCC) [D70.9] 12/29/2016 History of recurrent vertebral fractures [Z87.8*01/20/2017 Encounter Status:[facility] by EV[facility] SA[facility] OLIVEIRA ([id number]) 1945 F Date Time Provider Department 02/26/21 ERROL BOURGEOIS During your visit today, we recorded the following information about you: Errol Bourgeois MD 02/26/2021 12:31 PM Signed Please Call patient if MyChart note not read to review results/released to My Chart if tests completed at [facility]: normal labs. Continue over the counter vitamin D 2000 International Units daily with food. Recheck nonfasting labs in 3months.The orders have been placed. Happy to further review and discuss at follow up office visit. Continue rest of treatment plan per instructions at last office visit. Thank you. 02/22/21 normal vitamin D 72, calcium 9.4; --- 08/24/20 normal vitamin D 67.8, calcium 9.3; Joshua Garcia MA 02/26/2021 12:54 PM Signed Lm regarding results and recommendations. Allergies As of Date: 02/26/2021 Noted Allergy Reaction CEFDINIR 07/01/2016 5 - Intolerance Comments: bleeding bowel CLINDAMYCIN 07/16/2013 2 - Rash CODEINE 02/04/2004 1 - Mental Status Change MINOCYCLINE 07/16/2013 14 - Other: See Comments Comments: hyperpigmentation PLAQUENIL (HYDROXYCHLOROQUINE SUL*12/24/2010 7 - Swelling Comments: Caused tongue swelling Date Reviewed: 02/22/2021 Reviewed by: Errol Bourgeois - Fully Assessed Reason for Visit: Results [95] Primary Visit Diagnosis:Vitamin D deficiency [E55.9] Other Visit Diagnosis:Hypocalcemia [E83.51] Order(s):CALCIUM TOTAL BLD [SQCA] Order #: [id number] FUTURE VITAMIN D 25 HYDROXY [SQVITD] Order #: [id number] FUTURE Prescriptions as of 02/26/2021 Sig: ALBUTEROL SULFATE HFA 90 MCG/* Albuterol Sulfate Active 2 PU* ACETAMINOPHEN 325 MG TABLET 325 mg. AMLODIPINE 2.5 MG TABLET 2.5 mg. RESTASIS 0.05 % EYE DROPS IN * LATANOPROST 0.005 % EYE DROPS instill 1 (ONE) DROP IN BOTH * NYSTATIN-TRIAMCINOLONE 100,00* APPLY TO THE AFFECTED AREA(S)* NYSTATIN-TRIAMCINOLONE 100,00* nystatin-triamcinolone 100,00* MAGNESIUM GLUCONATE 30 MG (55* 30 mg. CHOLECALCIFEROL (VITAMIN D3) * Cholecalciferol (Vitamin D3) * IPRATROPIUM BROMIDE 0.02 % SO* 1 mL. PREDNISONE 5 MG TABLET Day 1=6tabs with food, Day 2=* SOTALOL 80 MG TABLET Take 80 mg by mouth once gui* RIVAROXABAN 20 MG TABLET Take 20 mg by mouth daily wit* ATORVASTATIN 40 MG TABLET Take 40 mg by mouth once gui* ASPIRIN 81 MG TABLET,DELAYED * Take 81 mg by mouth as direct* CITALOPRAM 10 MG TABLET Take 10 mg by mouth once gui* FUROSEMIDE 20 MG TABLET Take 20 mg by mouth once gui* VITAMIN C ORAL Take by mouth once daily. VITAMIN B COMPLEX CAPSULE Take 1 capsule by mouth once * OTC NUTRITIONAL SUPPLEMENT once daily. Toney Red UMECLIDINIUM 62.5 MCG-VILANTE* Inhale 1 Inhalation as instru* COMPOUNDED PRESCRIPTION Apply to affected area. give* GABAPENTIN ORAL Take 100 mg by mouth twice da* MULTI FOR HER ORAL Take by mouth. 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] 04/30/2012 Rotator cuff tear [M75.100] 04/30/2012 Congestion of nasal sinus [R09.81] 09/30/2013 Rheumatoid arthritis of multiple sites without *02/14/2014 Secondary osteoarthritis of multiple sites [M15*02/14/2014 Multiple joint pain [M25.50] 02/14/2014 Diarrhea [R19.7] 02/14/2014 Cervicalgia [M54.2] 06/19/2014 Shoulder pain, right [M25.511] 06/19/2014 Personal history of other drug therapy [Z92.29] 09/18/2015 Personal history of (healed) other pathological* 6 Hiatal hernia [K44.9] 06/13/2016 Gastroesophageal reflux disease without esophag*06/13/2016 Senile osteoporosis [M81.0] 08/03/2016 Chronic bilateral low back pain with right-side*08/03/2016 Neutropenia (HCC) [D70.9] 12/29/2016 History of recurrent vertebral fractures [Z87.8*01/20/2017 Encounter Status:Closed by JOSHUA GARCIA MA on 02/26/21 [facility] CNOVon 02-22-2021 CNOV Office Visit (JUAN JOSÉ ) ANTONIOSANAZ Trung ([id number]) 1945 F Date Time Provider Department 02/22/21 1:30 PM ERROL BOURGEOIS During your visit today, we recorded the following information about you: Pulse Blood pressure Weight 57/minute 122/60 67 kg Errol Bourgeois MD 02/22/2021 5:21 PM Signed Face to face follow up for rheumatoid arthritis/osteoporosis Authorized Type: Injectable Class: Internal Reasons: ? Diagnosis: M81.0 (ICD-10-CM) - Age-related osteoporosis without current pathological fracture Procedures: J0897 - DENOSUMAB INJECTION Start: Aug 24, 2020 Expiration: Aug 24, 2021 Requested: 3 Authorized: 3 Today's visit 02/22/21:Patient here requesting prolia. Had prolia but had flu like symptoms for 2weeks. No dental work planned. Not taking antibiotics. No signs or symptoms of infection. Had all over body pain, better with prednisone pack. Seeing cardiology, on diuretic for edema. Drinking tea today. Reports pain 2-3/10. Minimal AM stiffness. Feels safe at home. Has enough food, supplies and medications. Had BMD outside [facility] last year. More depression lately. denies SI/HI. High stress with daughter/ill. Not interested in seeing counselor at this time. Due for teeth extraction but no date set and unsure if dentist willing to extract teeth. Did not have COVID vaccine. Overall mildly uncomfortable but happy with rheum care. No falls/fx/trauma/illnes s/oral sores/rash/hairloss/ja w pain/dysphagia/epistax is/hemoptysis since last visit. No adverse effects with meds. No other complaints. Patient denies fever, chills, cp, dyspnea, nausea, vomiting, night sweats, scalp tenderness, visual changes, navas, bowel/bladder changes, weight changes or other complaints. Last visit supportive care, see oral/maxillary physician/dentist/ worse with mouth guard/tooth implant, prednisone for flares,may consider dmards/humira if high APRs and if patient agreeable, f/u with spine for possible spine surgery, see cardiology, prn voltaren gel, no response with acupucture or Reiki, f/u GI with chronic diarrhea/GERD symptoms/improved low fat diet, trial of cymbalta (no high doses due to weightgain), off neurontin, f/u with PCP for depression care, off azathioprine/arava due to chronic diarrhea, no plaquenil due to tongue swelling, calcium twice a day, vit D 4000 International Units daily, f/u with ortho for shoulder pain/history R cuff tear repair (09/22/14),start low impact weightbearing exercise, PT exercises for sciatica/shoulder when able, here for prolia 08/24/20, had IV reclast 03/02/16 (05/24/13), off naproxen/oral nsaids, benafiber, assisted pain recommendations per PCP/pain/spine clinic, 08/24/20:Patient here requesting prolia. No dental work planned. Not taking antibiotics. No signs or symptoms of infection. Chronic neck/jaw, shoulder pain with radiation to L hand. Seeing ortho, la have injection soon. Burned forehead with curling iron. Busy cementing lawn ornaments. Mild pain in hip and ankle and shoulder pain. Feels safe at home. Has enough food, supplies and medications. Reports pain 2-3/10. Minimal AM stiffness. Overall mildly uncomfortable but happy with rheum care. No falls/fx/trauma/illnes s/oral sores/rash/hairloss/ja w pain/dysphagia/epistax is/hemoptysis since last visit. No adverse effects with meds. No other complaints. Patient denies fever, chills, cp, dyspnea, nausea, vomiting, night sweats, scalp tenderness, visual changes, navas, bowel/bladder changes, weight changes or other complaints. Last visit supportive care, see oral/maxillary physician/dentist/ worse with mouth guard/tooth implant, prednisone for flares,may consider dmards/humira if high APRs and if patient agreeable, f/u with spine for possible spine surgery, see cardiology, prn voltaren gel, no response with acupucture or Reiki, f/u GI with chronic diarrhea/GERD symptoms/improved low fat diet, trial of cymbalta (no high doses due to weightgain), off neurontin, f/u with PCP for depression care, off azathioprine/arava due to chronic diarrhea, no plaquenil due to tongue swelling, calcium twice a day, vit D 4000 International Units daily, f/u with ortho for L shoulder pain/history R cuff tear repair (09/22/14),start low impact weightbearing exercise, PT exercises for sciatica/shoulder when able, due for prolia if approved, had IV reclast 03/02/16 (05/24/13), off naproxen/oral nsaids, benafiber, assisted pain recommendations per PCP/pain/spine clinic 07/06/20: not seen since 3years. Was on prolia. Did well on prolia but stopped due to other health issues. S/p CABG 3vessel 2017. 08/2019 norvasc fluid retention. Changed cardiology to [facility], discontinued norvasc, treated IV diuresis 11/2019. Lost weight with diuresis, improved diet. Reports pain in hips, knees, neck, shoulders. Had back injection/saddle block due to R leg pain/numb last year. Report (more content not included)... Normal [facility] Calcium, Totalon 02-22-2021 Calcium [Mass/Vol] 9.4 mg/dL Normal 8.5-10.2 [facility] Comment on above: Performed By: #### C A, VITD #### [facility] [address] [place], [place] [address] Vitamin D 25 Hydroxyon 02-22 Vitamin D 25 Hydroxy 72.0 ng/mL Normal 31.0-80.0 [facility] Comment on above: Result Comment: Clas sification of 25 [place] Vitamin D status: Insufficiency/Moderate Deficiency: < or = 30 ng/mL Sufficiency/Optimal Levels: 31 to 80 ng/mL Toxicity: > 100 ng/mL Test performed by chemiluminescent immunoassay. Performed By: #### C A, VITD #### [facility] [address] [place], [place] [address] XR SHOULDER GENERAL 3V OR MO RE AP/TRUE AP/OTHER LTon 07-06-2020 [facility] ic [facility] CARDIAC STRESS/REST INJE CTIONon 03-10-2020 [facility] CARDIAC STRESS/REST INJECTION Patient Name: SANAZ OLIVEIRA STUDY: MYOCARDIAL PERFUSION STRESS TEST WITH LEXISCAN Performing facility: [facility], [address] [place] [address], [address], [place] [id number] [facility] Provider: Cristel Nolan RN, [employer] PCP: Dr. Jimenez Supervising provider: Tawnya Fontana MD, [facility] INDICATION: CAD; Fatigue HISTORY: Gender: F; Age: 74 y/o ; Height: 149.86 cm; Weight: 69.9382901 kg. High Cholesterol; CAD; Arrhythmias; Chest Pain; SOB; COPD; Fatigue; CABG Denies smoking. CABG on 2016. COMPARISON: No comparison. ACCESSION NUMBER(S): [id number]; [id number]; [id number] ORDERING CLINICIAN: CRISTEL NOLAN TECHNIQUE: ONE DAY protocol. Stress injection: Date:03/10/2020, 35.8 mCi of Myoview IV 20 seconds after rapid injection of Lexiscan. Rest injection: Date: 03/10/2020, 11.7 mCi of Myoview IV at rest. The patient had a rapid injection of 0.4 mg of Lexiscan IV over 10 seconds. Imaging was performed by gated tomographic technique. Reason for Lexiscan: Unable to walk on treadmill due to joint pain STRESS TEST DATA: Resting heart rate was 55 BPM. Resting blood pressure was 132/84 mmHg. Peak blood pressure was 134/80 mmHg. Peak heart rate was 69 BPM. TEST TERMINATED DUE TO: Protocol completed FINDINGS: STRESS TEST RESULTS: Resting electrocardiogram revealed sinus bradycardia with frequent premature ventricular complexes, old septal myocardial infarction, left axis deviation. There were no significant ischemic ECG changes or dysrhythmias. The patient did not have chest pains/symptoms during procedure. There was a normal recovery phase. IMAGING RESULTS: Image quality was good. Rest and stress tomographic images were reviewed and revealed normal perfusion without evidence of ischemia, myocardial infarction, or left ventricular dilatation with stress. Overall left ventricular systolic function appeared to be normal without regional wall motion abnormalities. Ejection fraction was 65%. TID is 1.01 and is normal. There was no evidence of attenuation artifact. IMPRESSION: Normal [employer] cardiac perfusion stress test. No evidence of ischemia or myocardial infarction by perfusion imaging. Normal left ventricular systolic function, ejection fraction 65%. No previous studies are available for comparison. Electronically signed by: TAWNYA FONTANA MD Normal [facility] CBCon 12-31-2019 Erythrocyte distribution width (RBC) [Ratio] 12.6 % Normal 11.5 - 14.5 [facility] Comment on above: Performed By: #### C BC #### [address] [address] Hematocrit (Bld) [Volume fraction] 36.1 % Normal 36.0 - 46.0 [facility] Comment on above: Performed By: #### C BC #### [address] [address] Hemoglobin (Bld) [Mass/Vol] 11.9 g/dL Low 12.0 - 16.0 [facility] Comment on above: Performed By: #### C BC #### [address] [address] MCHC (RBC) [Mass/Vol] 33.0 g/dL Normal 32.0 - 36.0 [facility] Comment on above: Performed By: #### C BC #### [address] [address] MCV (RBC) [Entitic vol] 98 fL Normal 80 - 100 [facility] Comment on above: Performed By: #### C BC #### [address] [address] Platelets (Bld) [#/Vol] 245 10*3/uL Normal 150 - 450 [facility] Comment on above: Performed By: #### C BC #### [address] [address] RBC (Bld) [#/Vol] 3.68 x10E12/L Low 4.00 - 5.20 [facility] Comment on above: Performed By: #### C BC #### [address] [address] WBC (Bld) [#/Vol] 5.4 10*3/uL Normal 4.4 - 11.3 [facility] Comment on above: Performed By: #### C BC #### [address] [address] SPINAL PAIN BLOCK 04-09-20 19 SPINAL PAIN BLOCK [facility] Department of Radiology [address] [place] [id number] ======== Patient Name: SANAZ OLIVEIRA : 1945 Sex: F Age: Race: White Pt. Location: Patient Status: D Ordered Date: 03/18/2019 2:55:00 PM Completed Date: 04/09/2019 04:03 PM Requesting Provider: JOSI REHMAN Attending Provider: JOSI REHMAN Report Copy To: AUSTIN TORRES Signs & Symptoms: M54.16 Radiculopathy, lumbar region I10 History: [place] Comments: , Referral to Dr. Mcdonald for possible ESIs. , Referral to Dr. Mcdonald for possible ESIs. , , , Ordering Provider - JOSI REHMAN MD , Exam: SPINAL PAIN BLOCK ======== LUMBAR EPIDURAL STEROID INJECTION UNDER FLUOROSCOPIC GUIDANCE: SPINAL PAIN BLOCK 04/09/2019 4:03 PM EDT SIGNS AND SYMPTOMS: M54.16 Radiculopathy, lumbar region I10 TECHNOLOGIST COMMENTS:lumbar pain block with dr. syed. Fluoro time 1.45 minutes. fluoroscopy was provided for for an epidural pain block. RT-R Business Reporter INFORMED CONSENT: Reason for procedure was discussed with the patient. The procedure expectations risks benefits options and alternatives were discussed. All the questions were answered. The patient understood that results cannot be guaranteed. The procedure is indicated and risks are acceptable. Consent was obtained. STERILIZATION: All elements of maximal sterile technique were used during the procedure. TIMEOUT: [place] protocol timeout verification performed. PROCEDURE: Estimated blood loss: None. Under fluoroscopic guidance using all elements of maximum sterile technique and after infiltration of the skin and subcutaneous tissues with 5 mL of lidocaine 1%, 20-gauge needle is introduced in the lumbar epidural space at L5-S1 then 1 mL of air injected in the epidural space to ensure needle position. 40 mg Kenalog mixed with 3 mL of lidocaine 0.25% were injected in the lumbar epidural space. The patient tolerated the procedure there was no immediate complications. IMPRESSION: Successful lumbar epidural steroid injection. Electronically signed by:Tawnya Mcdonald. Transcribed by: [email or web address], User Resident: Electronically Signed by: TAWNYA MCDONALD @ 04/11/2019 06:04 PM Normal [facility] Comment on above: Order Comment: , Ref erral to Dr. Mcdonald for possible ESIs. , Referral to Dr. Mcdonald for possible ESIs. , , , Ordering Provider - JOSI REHMAN MD , FEMUR LEFT 2 [facility] 9 FEMUR LEFT 2 S [facility] Department of Radiology [address] [place] [id number] ======== Patient Name: SANAZ OLIVEIRA : 1945 Sex: F Age: Race: White Pt. Location: 84 Patient Status: O Ordered Date: 01/24/2019 9:00:00 AM Completed Date: 01/24/2019 09:03 AM Requesting Provider: JOSI REHMAN Attending Provider: JOSI REHMAN Report Copy To: DREWAUSTIN Signs & Symptoms: M79.659 Pain in unspecified thigh I10 History: [place] Comments: , please x-ray whole femur , Views (X-RAY, FEMUR): Radiologic Protocol , Weight Bearing?: Y , please x-ray whole femur , Views (X-RAY, FEMUR): Radiologic Protocol , Weight Bearing?: Y , , , Ordering Provider - JOSI REHMAN MD , Exam: FEMUR LEFT 2 VWS ======== FEMUR LEFT 2 VWS 01/24/2019 9:03 AM EDT SIGNS AND SYMPTOMS: M79.659 Pain in unspecified thigh I10 TECHNOLOGIST COMMENTS: patient states left femur pain getting worse in the last 6 months surgery to left femur x 11 years ago QUESTION FOR THE RADIOLOGIST: , please x-ray whole femur , Views (X-RAY, FEMUR): Radiologic Protocol , Weight Bearing?: Y , please x-ray whole femur , Views (X-RAY, FEMUR): Radiologic Protocol , Weight ...More In Sending System PROTOCOL: AP(PA) and Lateral views were obtained. COMPARISON: October 15, 2018 FINDINGS: Soft tissues: Minimal heterotopic ossification along the greater trochanter amarjit insertion Bones: Femur fractures have healed with intramedullary amarjit Joints: Minimal hip arthritis Moderate patellofemoral chondromalacia Likely patellofemoral chondromalacia IMPRESSION: 1. Healed femur fracture 2. Patellofemoral chondromalacia Electronically signed by:Yanet Bartlett. Transcribed by: [email or web address], User Resident: Electronically Signed by: YANET BARTLETT @ 01/24/2019 12:39 PM Normal [facility] Comment on above: Order Comment: , ple ase x-ray whole femur , Views (X-RAY, FEMUR): Radiologic Protocol , Weight Bearing?: Y , please x-ray whole femur , Views (X-RAY, FEMUR): Radiologic Protocol , Weight Bearing?: Y , , , Ordering Provider - JOSI REHMAN MD , LUMBAR SPINE 2 OR 3 VWSon LUMBAR SPINE 2 OR 3 VWS [facility] Department of Radiology [address] [place] [phone] ======== Patient Name: SANAZ OLIVEIRA : 1945 Sex: F Age: Race: White Pt. Location: Patient Status: O Ordered Date: 01/24/2019 10:05:00 AM Completed Date: 01/24/2019 10:10 AM Requesting Provider: JOSI REHMAN Attending Provider: JOSI REHMAN Report Copy To: AUSTIN TORRES Signs & Symptoms: M54.16 Radiculopathy, lumbar region I10 History: [place] Comments: , , , Ordering Provider - JOSI REHMAN MD , Exam: LUMBAR SPINE 2 OR 3 VWS ======== LUMBAR SPINE 2 OR 3 VWS 01/24/2019 10:10 AM EDT SIGNS AND SYMPTOMS: M54.16 Radiculopathy, lumbar region I10 TECHNOLOGIST COMMENTS: complains of low back pain hx: arthritis QUESTION FOR RADIOLOGIST: , , , Ordering Provider - JOSI REHMAN MD , PROTOCOL: AP, Lateral and L5-S1 spot film was obtained. COMPARISON: None. FINDINGS: Incidentally noted is lumbarization of S1 vertebra. There is levoconvex curvature measuring approximately 16 degrees between L3 and L4. Preserved vertebral body height. Moderate to severe disc height loss at L3-L4, L4-L5 and L5-S1. No fracture or dislocation. Multilevel facet joint hypertrophy most prominent at L4-L5 and L5-S1. Degenerative disease involving bilateral SI joints. There is 1.5 cm anterolisthesis of L5 on S1 IMPRESSION: 1. No fracture or dislocation. Multilevel degenerative disease with facet joint hypertrophy and disc height loss most prominent at L4-L5. 2. Grade 1 anterolisthesis of L5 on S1, similar to prior exam. Approved by:Petar Tolbert on 01/24/2019 4:55 PM EDT. I, Tawnya Mcdonald, have reviewed the images and report and concur with these findings. Electronically signed by:Tawnya Mcdonald. Transcribed by: [email or web address], User Resident: PETAR TOLBERT Electronically Signed by: TAWNYA MCDONALD @ 01/24/2019 09:06 PM I personally read this/these film(s) with this resident Normal [facility] Comment on above: Order Comment: , , = ========= , Ordering Provider - JOSI REHMAN MD , Cardiovascular Lab Reporton 11-24-[address] [facility] Patient Name: Sanaz Oliveira [facility] MR #: [id number] Physician: Austin Groves of [facility] Rent[facility] Service Date: 11/23/2018 Division of Birthdate: 1945 Cardiology Room #: Adult Cardiovascular Services [place] [address] Cardiovascular Laboratory Report INDICATIONS: The patient has a LINQ loop recorder placed by Dr. Ga in the past. She was having a lot of discomfort with it. I saw her in the [place] office, went through the recording. She was placed on 07/12/2017. The wound was in a very unusual position and was actually in her breast. It was making recordings, but I explained the patient I never quite seen 1 in that position. After exam was completed, she was brought to the EP suite. She was sterile prepped and draped. Due to the position of the loop, percutaneously finding it was extremely difficult. Therefore, we used 0.6 minutes of fluoroscopy to delineate the position. A small incision was made after lidocaine was instilled. The device was removed. The wound was closed in a single suture of 3-0 Biosyn. Here, with Dermabond and Steri-Strips. Sponge,and needle counts were correct. ASSESSMENT: 1. Fluoroscopy. 2. Removal of a loop recorder. Electronically Signed by: Austin Renteria M.D. 11/27/2018 08:52 A Austin Renteria M.D. Date Dict: 11/23/2018/12:38 P/Austin Renteria M.D. Date Trans: 11/24/2018 01:55 A/cornelio [id number] cc: Austin Torres M.D. 3 Formerly [facility] [address] Normal [facility] Vital Signs Date Time Vital Sign Value Performing Clinician Facility 12-13-2023 13:20-0500 Body height 149.9 cm Austin Torres MD Work Phone: [facility] 12-13-2023 13:20-0500 Body mass index (BMI) [Ratio] 29.49 kg/m2 Austin Torres MD Work Phone: [facility] 12-13-2023 13:20-050 Body temperature 98.1 [degF] Austin Torres MD Work Phone: [facility] 12-13-2023 13:20-0500 Body weight 66.22 kg Austin Torres MD Work Phone: [facility] 12-13-2023 13:20-0500 Diastolic blood pressure 76 mm[Hg] Austin Torres MD Work Phone: [facility] 12-13-2023 13:20-0500 Heart rate 52 /min Austin Torres MD Work Phone: [facility] 12-13-2023 13:20-0500 SaO2% (BldA) [Mass fraction] 96 % Austin Torres MD Work Phone: [facility] 12-13-2023 13:20-0500 Systolic blood pressure 130 mm[Hg] Austin Torres MD Work Phone: [facility] 06-30-2023 11:09-0400 Body height 149.86 cm Austin Torres Work Phone: [facility] DO Work Phone: 06-30-2023 11:09-0400 Body mass index (BMI) [Ratio] 28.68 kg/m2 Austin Torres Work Phone: [facility] DO Work Phone: 06-30-2023 11:09-0400 Body surface area Derived from formula 1.59 m2 Austin Torres Work Phone: [facility] 250 DO Work Phone: 06-30-2023 11:09-0400 Body weight 64.41 kg Austin Torres Work Phone: [facility] 250 DO Work Phone: 06-30-2023 11:09-0400 Diastolic blood pressure 62 mm[Hg] Austin Torres Work Phone: [facility] DO Work Phone: 06-30-2023 11:09-0400 Heart rate 74 /min Austin Torres Work Phone: [facility] DO Work Phone: 06-30-2023 11:09-0400 Systolic blood pressure 106 mm[Hg] Austin Torres Work Phone: [facility] DO Work Phone: 05-31-2023 14:00-0400 Body height 152.4 cm Eladio Posada Other [facility] Other 05-31-2023 14:00-0400 Body mass index (BMI) [Ratio] 27.34 kg/m2 Eladio Posada Other [facility] Other 05-31-2023 14:00-0400 Body weight 63.5 kg Eladio Posada Other [facility] Other 2022 13:06-0500 Body height 149.86 cm Tawnya Fontana MD Work Phone: [facility] DO Work Phone: 2022 13:06-0500 Body mass index (BMI) [Ratio] 28.88 kg/m2 Tawnya Fontana MD Work Phone: [facility] 250 DO Work Phone: 2022 13:06-0500 Body surface area Derived from formula 1.6 m2 Tawnya Fontana MD Work Phone: [facility] 250 DO Work Phone: 2022 13:06-0500 Body weight 64.86 kg Tawnya Fontana MD Work Phone: [facility] DO Work Phone: 2022 13:06-0500 Diastolic blood pressure 72 mm[Hg] Tawnya Fontana MD Work Phone: [facility] DO Work Phone: 2022 13:06-0500 Heart rate 61 /min Tawnya Fontana MD Work Phone: [facility] DO Work Phone: 2022 13:06-0500 Systolic blood pressure 132 mm[Hg] Tawnya Fontana MD Work Phone: [facility] DO Work Phone: 05-16-2022 12:15-0400 Body height 152.4 cm Eladio Posada Other [facility] Other 05-16-2022 12:15-0400 Body mass index (BMI) [Ratio] 29.49 kg/m2 Eladio Albino Other [facility] Other 05-16-2022 12:15-0400 Body weight 68.49 kg Eladio Albino Other [facility] Other 04-29-2022 11:15-0400 Body height 152.4 cm Eladio Albino Other [facility] Other 04-29-2022 11:15-0400 Body mass index (BMI) [Ratio] 29.88 kg/m2 Eladio Albino Other [facility] Other 04-29-2022 11:15-0400 Body weight 69.4 kg Eladio Albino Other [facility] Other 01-25-2022 13:53-0400 Body height 152.4 cm Tawnya Fontana MD Work Phone: [facility] 250 DO Work Phone: 01-25-2022 13:53-0400 Body mass index (BMI) [Ratio] 27.07 kg/m2 Tawnya Fontana MD Work Phone: [facility] 250 DO Work Phone: 01-25-2022 13:53-0400 Body surface area Derived from formula 1.6 m2 Tawnya Fontana MD Work Phone: [facility] 250 DO Work Phone: 01-25-2022 13:53-0400 Body weight 62.87 kg Tawnya Fontana MD Work Phone: [facility] 250 DO Work Phone: 01-25-2022 13:53-0400 Diastolic blood pressure 80 mm[Hg] Tawnya Fontana MD Work Phone: [facility] 250 DO Work Phone: 01-25-2022 13:53-0400 Heart rate 65 /min Tawnya Fontana MD Work Phone: [facility] DO Work Phone: 01-25-2022 13:53-0400 Systolic blood pressure 139 mm[Hg] Tawnya Fontana MD Work Phone: [facility] DO Work Phone: 01-25-2022 13:53-0400 14 1 Tawnya Fontana MD Work Phone: [facility] DO Work Phone: Comment on above: PHQ-9 TS Encounters Encounter Date Encounter Type Care Provider Facility Start: 07-18-2024 End: 07-18-2024 ambulatory MERRY OLIVEIRA Not Available Start: 07-18-2024 End: 07-18-2024 ambulatory MERRY OLIVEIRA Not Available Start: 07-09-2024 End: 07-09-2024 ambulatory DEA RODRIGUEZ Not Available Start: 07-03-2024 End: 07-03-2024 ambulatory RAQUEL BRINK Not Available Start: 07-01-2024 End: 07-01-2024 ambulatory JOHNSTON [facility] Start: 06-26-2024 End: 06-26-2024 ambulatory RAQUEL BRINK Not Available Start: 06-19-2024 End: 06-19-2024 ambulatory RAQUEL BRINK Not Available Start: 06-18-2024 End: 06-18-2024 ambulatory CLAUDIA Fuentes BENITO Not Available Start: 06-11-2024 End: 06-11-2024 ambulatory RAQUEL BRINK Not Available Start: 06-06-2024 End: 06-06-2024 ambulatory CLAUDIA Fuentes BENITO Not Available Start: 06-04-2024 End: 06-04-2024 ambulatory RAQUEL BRINK Not Available Start: 05-29-2024 End: 05-29-2024 ambulatory RAQUEL BRINK Not Available Start: 05-22-2024 End: 05-22-2024 ambulatory RAQUEL BRINK Not Available Start: 05-17-2024 End: 05-17-2024 ambulatory RAQUEL BRINK Not Available Start: 05-14-2024 End: 05-14-2024 ambulatory RAQUEL BRINK Not Available Start: 05-08-2024 End: 05-08-2024 ambulatory RAQUEL BRINK Not Available Start: 05-06-2024 End: 05-06-2024 ambulatory RAQUEL BRINK Not Available Start: 05-03-2024 End: 05-03-2024 ambulatory RAQUEL BRINK Not Available Start: 04-30-2024 End: 04-30-2024 ambulatory RAQUEL BRINK Not Available Start: 04-25-2024 End: 04-25-2024 ambulatory SANTHOSH VICKERS Not Available Start: 04-23-2024 End: 04-23-2024 ambulatory SANTHOSH VICKERS Not Available Start: 04-18-2024 End: 04-18-2024 ambulatory RAQUEL BRINK Not Available Start: 04-16-2024 End: 04-16-2024 ambulatory GERMAN MAZA Not Available Start: 04-10-2024 End: 04-10-2024 ambulatory DEA RODRIGUEZ Not Available Start: 04-03-2024 End: 04-03-2024 ambulatory SANTHOSH VICKERS Not Available Start: 03-11-2024 End: 03-11-2024 ambulatory Eladio Chandu RiveroAlbino Facility:[facility] Start: 03-11-2024 End: 03-11-2024 ambulatory II Austin Torres Work Phone: [facility] Work Phone: Start: 03-11-2024 End: 03-11-2024 Patient encounter procedure II Austin Torres Work Phone: [facility] Work Phone: Start: 01-16-2024 End: 01-17-2024 ambulatory [facility] Start: 01-16-2024 End: 01-16-2024 Subsequent hospital visit by physician Naima [facility] Echo/Vasc Room 2 [facility] [place] Comment on above: 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; Dizziness Start: 12-19-2023 End: 12-19-2023 ambulatory [facility] Ambulatory Start: 12-13-2023 Bamboo flowsheet Austin mixon MD Work Phone: [facility] Start: 12-13-2023 Bamboo flowsheet Austin mixon MD Work Phone: [facility] Start: 12-13-2023 End: 12-13-2023 Office outpatient visit 25 minutes Austin Torres MD Work Phone: [facility] Comment on above: Acute non-recurrent sinusitis, unspecified location (Primary Dx); 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 Tawnya Fontana Facility: Start: 06-09-2023 Rx Renewal Tawnya Fontana MD Work Phone: [facility] DO Work Phone: Start: 05-31-2023 End: 05-31-2023 ambulatory Austin Torres Facility:[facility] Start: 05-31-2023 Office outpatient vi sit 15 minutes Eladio [facility] Start: 05-31-2023 End: 05-31-2023 ambulatory II Austin Torres Work Phone: [facility] Work Phone: Start: 05-31-2023 End: 05-31-2023 Patient encounter procedure II Austin Torres Work Phone: [facility] [place] [facility] Start: 05-16-2023 Rx Renewal Tawnya Fontana MD Work Phone: [facility] DO Work Phone: Start: 04-12-2023 Rx Renewal Tawnya Fontana MD Work Phone: [facility] DO Work Phone: Start: 02-22-2023 End: 02-23-2023 ambulatory CLAUDIA OLIVER Facility: Start: 01-09-2023 Rx Renewal Tawnya Fontana MD Work Phone: [facility] DO Work Phone: Start: 10-11-2022 Rx Renewal Tawnya Fontana MD Work Phone: [facility] DO Work Phone: Start: 09-30-[address] Tawnya Fontana Facility: Start: 09-22-2022 Patient encounter procedure [id number] NO [id number] BUTT SAWYER 1 Work Phone: [facility] 250 DO Work Phone: Start: 09-22-[address] Tawnya Fontana Facility: Start: 2022 Office outpatient vi sit 25 minutes Tawnya Fontana MD Work Phone: [facility] DO Work Phone: Start: [address] Jono Barragan Facility: Start: 08-31-2022 End: 09-01-[address] HAZEL OSMAN . Facility: Start: 08-09-2022 End: 08-09-[address] HAZEL OSMAN . Facility: Start: 07-28-2022 End: 07-29-[address] HAZEL OSMAN . Facility: Start: 07-12-2022 End: 07-12-[address] HAZEL OSMAN . Facility: Start: 06-21-2022 End: 06-22-[address] HAZEL OSMAN . Facility: Start: 06-21-2022 End: 06-22-[address] HAZEL OSMAN . Facility: Start: 05-16-2022 End: 05-16-2022 ambulatory Eladio Posada Other [facility] Other Start: 05-16-2022 Office outpatient vi sit 15 minutes Eladio Posada [facility] Start: 04-29-2022 End: 04-29-2022 ambulatory Eladio Posada Other [facility] Other Start: 04-29-2022 Office outpatient vi sit 15 minutes Eladio Posada [facility] Start: 03-28-2022 Rx Change Tawnya Fontana MD Work Phone: [facility] 250 DO Work Phone: Start: 01-25-2022 Office outpatient vi sit 25 minutes Tawnya Fontana MD Work Phone: [facility] DO Work Phone: Start: 10-25-2021 End: 10-25-2021 ambulatory Mariana Duggan Other [facility] Other Start: 10-25-2021 Patient encounter procedure Mariana Mccartypushpa [facility] Start: 09-27-2021 End: 09-27-2021 ambulatory Eladio Albino Other [facility] Other Start: 09-27-2021 Postop follow up vis it related to original px Eladio Posada [facility] Start: 07-06-2020 End: 07-06-2020 Subsequent hospital visit by physician Fransisco [facility] Comment on above: Chronic left shoulde r pain [M25.512, G89.29] Start: 11-23-2018 End: 11-24-2018 Patient encounter procedure AUSTIN RENTERIA Facility:[facility] Procedures Date Procedure Procedure Detail Performing Clinician Start: 03-11-2024 Plain X-ray of right shoulder II Austin Torres Work Phone: Start: 01-16-2024 [facility] US CAROTID ARTERY DUPLEX BILATERAL TAWNYA FONTANA Start: 12-19-2023 ECG 12-LEAD TAWNYA FONTANA Start: 10-27-2023 History of coronary artery bypass grafting History of coronary artery bypass graft Naima 2 Start: 05-31-2023 Plain X-ray of left shoulder II Austin Torres Work Phone: Start: 05-31-2023 X-ray of left knee II Austin Torres Work Phone: Start: 07-06-2020 Radex shoulder complete minimum 2 views Errol Bourgeois MD Work Phone: Start: 06-21-2018 H/O: artificial joint Presence of right artificial shoulder joint Austin Torres MD Work Phone: Start: 08-11-2017 History of coronary artery bypass grafting Eladio oPsada Other Cataract surgery Tawnya willoughby MD Work Phone: Decompression of med shelly nerve Tawnya Fontana MD Work Phone: Excision of peripher al neuroma Tawnya Fontana MD Work Phone: History of coronary artery bypass grafting History of coronary artery bypass graft Tawnya Fontana MD Work Phone: History of coronary artery bypass grafting Aortocoronary bypass status II Austin Torres Work Phone: Ligation of fallopia n tube Tawnya Fontana MD Work Phone: Operation on fracture Tawnya Fontana MD Work Phone: Operative procedure on foot Tawnya Fontana MD Work Phone: Operative procedure on wrist Tawnya Fontana MD Work Phone: Prosthetic arthropla sty of shoulder Tawnya Fontana MD Work Phone: Tonsillectomy and adenoidectomy Tawnya Fontana MD Work Phone: Total colonoscopy Tawnya burgess MD Work Phone: Plan of Treatment Date Care Activity Detail Author Start: 07-26-2033 DTaP/Tdap/Td Vaccine s (3 - Td or Tdap) DTaP/Tdap/Td Vaccines (3 - Td or Tdap) [facility] Start: 08-16-2025 Screening for osteoporosis Bone Dens ity Scan [facility] Start: 08-30-2024 Pneumococcal Vaccine : 65+ Years (3 - PPSV23 or PCV20) Pneumococcal Vaccine: 65+ Years (3 - PPSV23 or PCV20) [facility] Comment on above: Postponed from 06/01 (Patient Refused) Start: 08-03-2024 Medicare Annual Well ness (AWV) Medicare Annual Wellness (AWV) [facility] Start: 07-04-2024 End: 07-04-2024 Patient encounter procedure 07/04/2024 11:00 AM EDT Office Visit [address] [address] Tawnya Fnotana MD [address] [facility] [address] [place] [address] [facility] Start: 05-05-2024 Influenza vaccination Influenza Vacc ine (#1) [facility] Comment on above: Postponed from 07/07 (Patient Refused) Start: 03-11-2024 Plain X-ray of right shoulder XR shoulder RT min 2V* [facility] Start: 03-11-2024 XR Shoulder - right Views [facility] Start: 12-14-2023 FUV, Provider: Tawnya Fontana, Status: Pen, Time: 11:30 AM FUV, Provider: Tawnya Fontana, Status: Pen, Time: 11:30 AM [facility] 250 DO Work Phone: Start: 12-13-2023 End: 12-13-2023 Patient encounter procedure 12/13/2023 1:30 PM EST Office Visit [facility] [address] [facility] [address] [place] [address] Austin Torres MD [address] [facility] [address] [place] [address] Arrived [facility] Comment on above: Arrived Start: 07-07-2023 Influenza vaccination [facility] Start: 07-06-2023 DIABETES SCREEN DIABETES SCREEN [facility] Start: 06-29-2023 FUV, Provider: Tawnya Fontana, Status: Pen, Time: 11:20 AM FUV, Provider: Tawnya Fontana, Status: Pen, Time: 11:20 AM [facility] 250 DO Work Phone: Start: 03-16-2023 FUV, Provider: Tawnya Fontana, Status: Pen, Time: 10:40 AM FUV, Provider: Tawnya Fontana, Status: Pen, Time: 10:40 AM [facility] 250 DO Work Phone: Start: 01-01-2023 ADVANCE DIRECTIVE DISCUSSION ADVANCE DIRECTIVE DISCUSSION [facility] Start: 11-06-2022 DEPRESSION ASSESSMENT DEPRESSION ASS ESSMENT [facility] Start: 10-25-2022 Echocardiography Echocardiogram [facility] Start: 09-22-2022 HOLTER MON, Provider : OMID FITZGERALD BUTT SAWYER 1,[id number], Status: Pen, Time: 9:30 AM HOLTER MON, Provider: OMID FITZGERALD BUTT SAWYER 1,[id number], Status: Pen, Time: 9:30 AM [facility] 250 DO Work Phone: Start: 08-16-2022 FUV, Provider: Tawnya Fontana, Status: Pen, Time: 11:20 AM FUV, Provider: Tawnya Fontana, Status: Pen, Time: 11:20 AM [facility] 250 DO Work Phone: Start: 08-27-2021 COVID-19 Vaccine (3 - Pfizer risk series) COVID-19 Vaccine (3 - Pfizer risk series) [facility] Start: 08-06-2018 Pneumococcal Vaccine : 65+ Years (3 - PPSV23 or PCV20) Pneumococcal Vaccine: 65+ Years (3 - PPSV23 or PCV20) [facility] Start: 2009 BONE DENSITY BONE DENSITY [facility] Start: 2009 PNEUMOCOCCAL: 65+ (1 - PCV) PNEUMOCOCCAL: 65+ (1 - PCV) [facility] Start: 1994 SHINGRIX VACCINE (1 of 2) HILL GRIX VACCINE (1 of 2) [facility] Start: 1994 Zoster Vaccines (1 of 2) Zoste r Vaccines (1 of 2) [facility] Start: 1963 Urine microalbumin profile DTAP,TDAP ,TD (1 - Tdap) [facility] Start: 1962 Diabetes mellitus screening Diabetes Screening [facility] Start: 1962 Hepatitis C screening Hepatitis C [facility] Start: 03-15-1945 COVID-19 VACCINE (#1) COVID-19 VACCI NE (#1) [facility] Start: 1944 Creatinine measurement Creatinine Le tyler [facility] Start: 1944 Lipid panel Lipid Panel [facility] Start: 1944 Medicare Annual Well ness Visit Medicare Annual Wellness Visit (AWV) [facility] Start: 1944 Potassium measurement Potassium Leve l [facility] End: 01-16-2024 US.doppler Carotid arteries - bilateral [facility] Service Area Work Phone: Comment on above: Once for 1 Occurrenc es starting 01/16/2024 until 01/16/2024 Immunizations Immunization Date Immunization Notes Care Provider Fa cility 09-04-2021 tetanus toxoid, reduced diphtheria toxoid, and acellular pertussis vaccine, adsorbed Tawnya Fontana MD Work Phone: [facility] 07-30-2021 Pfizer-BioNTech COVID-19 Vacc 30 MCG/0.3ML Intramuscular Suspension Tawnya Fontana MD Work Phone: [facility] 07-09-2021 Pfizer-BioNTech COVID-19 Vacc 30 MCG/0.3ML Intramuscular Suspension Tawnya Fontana MD Work Phone: [facility] 08-06-2017 pneumococcal conjugate vaccine, 13 valent Tawnya Fontana MD Work Phone: [facility] 250 DO Work Phone: 08-03-2015 influenza, injectable,quadrival ent, preservative free, pediatric Eladio Posada Other [facility] Other 08-03-2015 influenza, injectable, quadrivalent, preservative free Austin Torrse MD Work Phone: [facility] 08-03-2015 influenza virus vaccine, unspecified formulation Austin Torres MD Work Phone: [facility] 06-01-2015 pneumococcal conjugate vaccine, 13 valent Austin Torres MD Work Phone: [facility] 07-07-2014 influenza, seasonal, injectable Austin Torres MD Work Phone: [facility] 08-10-2010 seasonal influenza, intradermal, preservative free Austin Torres MD Work Phone: [facility] 09-11-2008 pneumococcal Conjugate, unspecified formulation Austin Torres MD Work Phone: [facility] 09-11-2008 pneumococcal polysaccharide vaccine, 23 valent Austin Torres MD Work Phone: [facility] NEGATED: Highlighted row has not occurred! 9 influenza, high dose seasonal, preservative-free Patient Objection Eladio Posada Other [facility] Other NEGATED: Highlighted row has not occurred! 8 influenza, high dose seasonal, preservative-free Patient Objection Eladio Posada Other [facility] Other Payers Date Payer Category Payer Medicare [id number] 2023 Self-pay [id number] 2019 Unknown 1959 Medicare [id number] 1959 Medicare [id number] 1944 Unknown [id number] 2.16.8 40.1.627755.3.579.2.647 1944 Unknown [id number] 2.16.84 0.1.067872.3.579.2.593 1944 Unknown [id number] 2.16.84 0.1.090462.3.579.2.593 1944 Unknown [id number] 2.16.84 0.1.410797.3.579.2.593 1944 Unknown [id number] 2.16.84 0.1.637560.3.579.2.593 1944 Unknown [id number] 2.16.84 0.1.202560.3.579.2.593 1944 Unknown [id number] 2.16.84 0.1.831154.3.579.2.593 1944 Unknown [id number] 2.16.84 0.1.822709.3.579.2.593 1944 Unknown [id number] 2.16. 840.1.182966.3.579.2.356 1944 Unknown [id number] 2.16. 840.1.888947.3.579.2.356 1944 Unknown [id number] 2.16. 840.1.563408.3.579.2.356 1944 Unknown [id number] 2.16. 840.1.203188.3.579.2.356 1944 Unknown [id number] 2.16.84 0.1.384066.3.579.2.1246 1944 Unknown [id number] 2.16.8 40.1.248955.3.579.2.1244 1944 Unknown [id number] 2.16.8 40.1.115500.3.579.2.1244 1944 Unknown [id number] 2.16.84 0.1.311481.3.579.2.1259 1944 Unknown [id number] 2.16.84 0.1.724192.3.579.2.1259 1944 Unknown [id number] 2.16.84 0.1.985802.3.579.2.1259 1944 Unknown [id number] 2.16.84 0.1.987629.3.579.2.1259 1944 Unknown [id number] 2.16.84 0.1.551147.3.579.2.1259 1944 Unknown [id number] 2.16.84 0.1.068699.3.579.2.1259 1944 Unknown [id number] 2.16.84 0.1.602037.3.579.2.1259 1944 Unknown [id number] 2.16.84 0.1.678719.3.579.2.1259 1944 Unknown [id number] 2.16.84 0.1.353069.3.579.2.1259 1944 Unknown [id number] 2.16.84 0.1.355208.3.579.2.1259 -10-1944 Unknown [id number] 2.16.84 0.1.710661.3.579.2.1259 -10-1944 Unknown [id number] 2.16.84 0.1.722140.3.579.2.1259 -10-1944 Unknown [id number] 2.16.84 0.1.714408.3.579.2.1259 --1944 Unknown [id number] 2.16.84 0.1.281999.3.579.2.1259 -10-1944 Unknown [id number] 2.16.84 0.1.235004.3.579.2.1259 -1944 Unknown [id number] 2.16.84 0.1.729758.3.579.2.1259 -1944 Unknown [id number] 2.16.84 0.1.714412.3.579.2.1259 --1944 Unknown [id number] 2.16.84 0.1.924245.3.579.2.1259 -10-1944 Unknown [id number] 2.16.84 0.1.066316.3.579.2.1259 -10-1944 Unknown [id number] 2.16.84 0.1.368939.3.579.2.1259 -10-1944 Unknown [id number] 2.16.84 0.1.882852.3.579.2.1259 -10-1944 Unknown [id number] 2.16.84 0.1.264017.3.579.2.1259 1944 Unknown [id number] 2.16.84 0.1.056571.3.579.2.1259 1944 Unknown [id number] 2.16.84 0.1.642147.3.579.2.1259 1944 Unknown [id number] 2.16.84 0.1.910707.3.579.2.1259 1944 Unknown [id number] 2.16.840 .1.172563.3.579.2.1259 Medicare [id number] 2.1 6.840.1.994599.19 Medicare [id number] 2. 16.840.1.310095.19 Medicare Medicare [id number] Unknown [id number] Unknown Regular Insurance [id number] Unknown Insurance No Card [id number] Unknown [id number] Unknown [id number] Social History Date Type Detail Facility Start: 07-06-2020 End: 12-19-2023 Daily caffeine consumption, 1 serving a day Daily caffeine consumption, 1 serving a day [facility] Work Phone: Start: 07-06-2020 End: 12-19-2023 Sex Assigned At [facility] Work Phone: Start: 12-20-2021 End: 12-19-2023 Tobacco smoking status NHIS Never smoked tobacco (finding) [facility] Start: 1945 Sex Assigned At Female F [facility] Start: 12-28-2011 End: 12-19-2023 Tobacco use and exposure Smokeless tobacco non-user [facility] Start: 07-06-2020 Alcohol intake Current non-dr lock fitter of alcohol (finding) [facility] Start: 1945 Sex Assigned At Not on file [facility] Start: 06-06-2020 End: 01-16-2024 Exposure to SARS-CoV-2 (event) Not sure [facility] Start: 10-04-2023 End: 12-13-2023 Alcohol intake Ex-drinker (finding) [facility] Within the last year , have you been afraid of your partner or ex-partner? No [facility] Work Phone: Do you belong to any clubs or organizations such as pentecostalism groups, unions, fraPrevistar or athletic groups, or school groups? Yes [facility] Are you now , , , , never or living with a partner? [facility] How often to you hav e a drink containing alcohol? Never [facility] How many standard dr inks containing alcohol do you have on a typical day? Patient does not drink [facility] How hard is it for y ou to pay for the very basics like food, housing, medical care, and heating Not very hard [facility] Do you feel stress - tense, restless, nervous, or anxious, or unable to sleep at night because your mind is troubled all the time - these days [OSQ] To some extent [facility] (I/We) worried wheth er (my/our) food would run out before (I/we) got money to buy more. Never true [facility] Start: 08-03-2023 Alcohol Comment Caffeine intak e : coffee,tea [facility] Start: 12-19-2023 Alcohol intake Lifetime non-d iván (finding) [facility] Work Phone: Medical Equipment Procedure Code Equipment Code Equipment Origin al Text Equipment Identifier Dates Open reduction and internal fixation of fracture of humerus CANCELLOUS COARSE 7.5CC FDA Start: 09-07-2021 Open reduction and internal fixation of fracture of humerus Internal orthopaedic fixation system, cerclage wire/cable, sterile ()[id number] FDA Start: 09-07-2021 Open reduction and internal fixation of fracture of humerus Orthopaedic bone screw, non-bioabsorbable, non-sterile ()[id number] FDA Start: 09-07-2021 Open reduction and internal fixation of fracture of humerus Orthopaedic bone screw, non-bioabsorbable, non-sterile ()[id number] FDA Start: 09-07-2021 Open reduction and internal fixation of fracture of humerus Orthopaedic bone screw, non-bioabsorbable, non-sterile ()[id number] FDA Start: 09-07-2021 Open reduction and internal fixation of fracture of humerus Orthopaedic bone screw, non-bioabsorbable, non-sterile ()[id number] FDA Start: 09-07-2021 Open reduction and internal fixation of fracture of humerus Orthopaedic fixation plate, non-bioabsorbable, sterile ()[id number] FDA Start: 09-07-2021 Open reduction and internal fixation of fracture of humerus CANCELLOUS COARSE 7.5CC FDA Start: 09-07-2021 Open reduction and internal fixation of fracture of humerus CANCELLOUS COARSE 7.5CC FDA Start: 09-07-2021 Functional Status Date Assessment Result Facility 01-25-2022 PHQ-9 [id number] Moderate (10-14) [facility] 250 DO Work Phone: Clinical Notes 12-24-2020 to 12-13-2023 Austin Torres MD - 12/13/2023 1:30 PM EST Note Date & Type Note Facility 12-13-2023 History of Presen t illness Narrative HPI FYI Additional comments: Pt stopped taking her statin 6 months ago she thought it would make her legs feel better Last edited by Norma Boyle LPN on 12/13/2023 1:32 PM. Subjective Patient ID: Sanaz Oliveira is a 78 y.o. female who presents for URI and FYI (Pt stopped taking her statin 6 months ago she thought it would make her legs feel better). Upper Respiratory Infection Patient complains of symptoms of a URI, possible sinusitis. Symptoms include cough described as productive, post nasal drip, sore throat, and wheezing. Onset of symptoms was 2 months ago, and has been gradually worsening since that time. Treatment to date: none. Pt states she has felt exhausted recently she is rearranging her home She states she noticed her left ankle occ. 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 Pertinent negatives include no abdominal pain, chest pain, coughing, diarrhea, ear pain, nausea, sore throat, vomiting or wheezing. Current Outpatient Medications on File Prior to Visit Medication Sig Dispense Refill amLODIPine (Norvasc) 2.5 MG tablet TAKE 1 TABLET BY MOUTH ONCE DAILY 100 tablet 3 aspirin 81 MG EC tablet Daily. b complex vitamins capsule Take 1 capsule by mouth in the morning. cycloSPORINE (Restasis) 0.05 % ophthalmic emulsion Restasis 0.05 % eye drops in a dropperette 1.5 mL 11 furosemide (Lasix) 20 MG tablet 1 tablet Orally Once a day PRN Krill Oil 500 MG capsule 1 capsule 1 (one) time each day at the same time. latanoprost (Xalatan) 0.005 % ophthalmic solution 1 (one) time each day at the same time. 1 drop into affected eye in the evening Ophthalmic Once a day magnesium oxide (Mag-Ox) 400 (240 Mg) MG tablet Take 400 mg by mouth in the morning.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 COVID vaccine. Overall mildly uncomfortable but happy with rheum care. No falls/fx/trauma/illness/oral sores/rash/hairloss/jaw pain/dysphagia/epistaxis/hemoptysis since last visit. No adverse effects with meds. No other complaints. Patient denies fever, chills, cp, dyspnea, nausea, vomiting, night sweats, scalp tenderness, visual changes, navas, bowel/bladder changes, weight changes or other complaints. Last visit supportive care, see oral/maxillary physician/dentist/ worse with mouth guard/tooth implant, prednisone for flares,may consider dmards/humira if high APRs and if patient agreeable, f/u with spine for possible spine surgery, see cardiology, prn voltaren gel, no response with acupucture or Reiki, f/u GI with chronic diarrhea/GERD symptoms/improved low fat diet, trial of cymbalta (no high doses due to weightgain), off neurontin, f/u with PCP for depression care, off azathioprine/arava due to chronic diarrhea, no plaquenil due to tongue swelling, calcium twice a day, vit D 4000 International Units daily, f/u with ortho for shoulder pain/history R cuff tear repair (09/22/14),start low impact weightbearing exercise, PT exercises for sciatica/shoulder when able, here for prolia 08/24/20, had IV reclast 03/02/16 (05/24/13), off naproxen/oral nsaids, benafiber, assisted pain recommendations per PCP/pain/spine clinic, 08/24/20:Patient here requesting prolia. No dental work planned. Not taking antibiotics. No signs or symptoms of infection. Chronic neck/jaw, shoulder pain with radiation to L hand. Seeing ortho, la have injection soon. Burned forehead with curling iron. Busy cementing lawn ornaments. Mild pain in hip and ankle and shoulder pain. Feels safe at home. Has enough food, supplies and medications. Reports pain 2-3/10. Minimal AM stiffness. Overall mildly uncomfortable but happy with rheum care. No falls/fx/trauma/illness/oral sores/rash/hairloss/jaw pain/dysphagia/epistaxis/hemoptysis since last visit. No adverse effects with meds. No other complaints. Patient denies fever, chills, cp, dyspnea, nausea, vomiting, night sweats, scalp tenderness, visual changes, navas, bowel/bladder changes, weight changes or other complaints. Last visit supportive care, see oral/maxillary physician/dentist/ worse with mouth guard/tooth implant, prednisone for flares,may consider dmards/humira if high APRs and if patient agreeable, f/u with spine for possible spine surgery, see cardiology, prn voltaren gel, no response with acupucture or Reiki, f/u GI with chronic diarrhea/GERD symptoms/improved low fat diet, trial of cymbalta (no high doses due to weightgain), off neurontin, f/u with PCP for depression care, off azathioprine/arava due to chronic diarrhea, no plaquenil due to tongue swelling, calcium twice a day, vit D 4000 International Units daily, f/u with ortho for L shoulder pain/history R cuff tear repair (09/22/14),start low impact weightbearing exercise, PT exercises for sciatica/shoulder when able, due for prolia if approved, had IV reclast 03/02/16 (05/24/13), off naproxen/oral nsaids, benafiber, assisted pain recommendations per PCP/pain/spine clinic 07/06/20: not seen since 3years. Was on prolia. Did well on prolia but stopped due to other health issues. S/p CABG 3vessel 2017. 08/2019 norvasc fluid retention. Changed cardiology to [facility], discontinued norvasc, treated IV diuresis 11/2019. Lost weight with diuresis, improved diet. Reports pain in hips, knees, neck, shoulders. Had back injection/saddle block due to R leg pain/numb last year. Reports pain 2-01/13. Minimal AM stiffness. Had panoramic xrays with dentist 08/2019, unsure of results. Due for mammagram. Overall mildly uncomfortable but happy with rheum care. No falls/fx/trauma/illness/oral sores/rash/hairloss/jaw pain (more content not included)...[facility]02-18-2021 Note Patient Outreach (COVAMN) SANAZ OLIVEIRA ([id number]) 1945 F Date Time Provider Department 12/24/20 TONY MENDEZ During your visit today, we recorded the following information about you: Allergies As of Date: 12/24/2020 Noted Allergy Reaction CEFDINIR 07/01/2016 5 - Intolerance Comments: bleeding bowel CLINDAMYCIN 07/16/2013 2 - Rash CODEINE 02/04/2004 1 - Mental Status Change MINOCYCLINE 07/16/2013 14 - Other: See Comments Comments: hyperpigmentation PLAQUENIL (HYDROXYCHLOROQUINE SUL*12/24/2010 7 - Swelling Comments: Caused tongue swelling Date Reviewed: 08/24/2020 Reviewed by: Errol Bourgeois - Fully Assessed Order(s):SARS-COVID VACCINE 1ST DOSE APPT [[id number]] Order #: [id number] FUTURE Prescriptions as of 12/24/2020 Sig: SOTALOL 80 MG TABLET Take 80 mg by mouth once gui* RIVAROXABAN 20 MG TABLET Take 20 mg by mouth daily wit* ATORVASTATIN 40 MG TABLET Take 40 mg by mouth once gui* ASPIRIN 81 MG TABLET,DELAYED * Take 81 mg by mouth as direct* CITALOPRAM 10 MG TABLET Take 10 mg by mouth once gui* FUROSEMIDE 20 MG TABLET Take 20 mg by mouth once gui* VITAMIN C ORAL Take by mouth once daily. VITAMIN B COMPLEX CAPSULE Take 1 capsule by mouth once * OTC NUTRITIONAL SUPPLEMENT once daily. Toney Red UMECLIDINIUM 62.5 MCG-VILANTE* Inhale 1 Inhalation as instru* ALBUTEROL INHALATION Inhale as instructed. COMPOUNDED PRESCRIPTION Apply to affected area. give* GABAPENTIN ORAL Take 100 mg by mouth twice da* MULTI FOR HER ORAL Take by mouth. 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] 04/30/2012 Rotator cuff tear [M75.100] 04/30/2012 Congestion of nasal sinus [R09.81] 09/30/2013 Rheumatoid arthritis of multiple sites without *02/14/2014 Secondary osteoarthritis of multiple sites [M15*02/14/2014 Multiple joint pain [M25.50] 02/14/2014 Diarrhea [R19.7] 02/14/2014 Cervicalgia [M54.2] 06/19/2014 Shoulder pain, right [M25.511] 06/19/2014 Personal history of other drug therapy [Z92.29] 09/18/2015 Personal history of (healed) other pathological*03/02/2016 Hiatal hernia [K44.9] 06/13/2016 Gastroesophageal reflux disease without esophag*06/13/2016 Senile osteoporosis [M81.0] 08/03/2016 Chronic bilateral low back pain with right-side*08/03/2016 Neutropenia (HCC) [D70.9] 12/29/2016 History of recurrent vertebral fractures [Z87.8*01/20/2017 Encounter Status:Closed by EPIC, PRODUSER on 12/28/20[facility] Evaluation noteNo InformationNort [employer] Other Evaluation noteNo assessment information available [facility] Work Phone: Evaluation note* Diagnosis Chronic left shoulder pain Pain in joint, shoulder region [facility] Acute non-recurrent sinusitis, unspecified location- Primary 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) Paroxysmal atrial fibrillation (I48.0) Atrial fibrillation Recurrent major depressive disorder, in full remission (CMS/HCC) Chronic diastolic congestive heart failure (CMS/HCC) Longstanding persistent atrial fibrillation (CMS/HCC) documented in this encounter [facility]* Diagnosis Coronary artery disease involving lower [place] coronary artery of lower [place] heart without angina pectoris Dizziness Dizziness and giddiness documented in this encounter [facility] Work Phone: Evaluation note* Diagnosis Onset Date Resolution Status Closed right humeral fracture acute Left shoulder strain acute Osteoarthritis of left knee acute Primary osteoarthritis, left shoulder acute [facility] Work Phone: Evaluation note* Diagnosis Onset Date Resolution Status Closed right humeral fracture acute Left shoulder pain acute Left shoulder strain acute Osteoarthritis of left knee acute Primary osteoarthritis, left shoulder acute [facility] Work Phone: History general Narrative - Reported* Type Description Date Medical History HTN Medical History HYPERCHOLESTERMIA Medical History COPD Medical History HIATAL HERNIA Medical History ULCERATIVE COLLITIS Medical History SCOLIOSIS Surgical History Bilateral tubal ligation 1979 Surgical History TUBALIGAITON Surgical History Dr. Nye;4 neuromas ASHLEY feet Surgical History OPEN HEART - CARDIAC STENTS 201 7 Surgical History Carpal tunnel release 1997 Surgical History RT SHOULDER Surgical History CARPAL TUNNEL Surgical History Cataract extraction Surgical History FEET Surgical History Foot surgeries X 4 B/L Surgical History FEMUR FX Surgical History LT femur rodding 2007 Surgical History T & A Surgical History Tonsillectomy 194 Surgical History Lt wrist surgery Surgical History colonoscopy;diverticulosis 2009 ,2013 Surgical History Reverse RT TSA 09/22/14 Surgical History umbilical hernia 2016 Surgical History heart cath [facility] [place] 03/2017 Surgical History CABG x3 04/2017 Surgical History Colonoscopy, Polypectomy, & EGD 08/27/19 Surgical History ORIF right humeral shaft Hospitalization History Acute Exacerbation of CH F/ A-Fib 11/26/19 [facility] Other Reason for visit NarrativeER REFERRAL, BLACKED OUT AND FELL, INJURY TO RIBS AND ARMNorth [employer] Other Summary Purpose Family History No Family History Records FoundUnknown Family Member Name Dates Details No pertinent family history: Father(V49.89, Z78.9) Status:Active Family history of myocardial infarction: Mother(V17.3, Z82.49) Status:Active Family history of coronary a rtery disease: Mother(V17.3, Z82.49) Status:Active Family history of cerebrovas cular accident (CVA): Mother(V17.1, Z82.3) Status:Active Unknown Family Member Name Dates Details Family history of cerebrovas cular accident (CVA): Mother(V17.1, Z82.3) Status:Active Family history of coronary a rtery disease: Mother(V17.3, Z82.49) Status:Active Family history of myocardial infarction: Mother(V17.3, Z82.49) Status:Active No pertinent family history: Father(V49.89, Z78.9) Status:Active Unknown Family Member Name Dates Details Family history of cerebrovas cular accident (CVA): Mother(V17.1, Z82.3) Status:Active Family history of coronary a rtery disease: Mother(V17.3, Z82.49) Status:Active Family history of myocardial infarction: Mother(V17.3, Z82.49) Status:Active No pertinent family history: Father(V49.89, Z78.9) Status:Active Unknown Family Member Name Dates Details Family history of cerebrovas cular accident (CVA): Mother(V17.1, Z82.3) Status:Active Family history of coronary a rtery disease: Mother(V17.3, Z82.49) Status:Active Family history of myocardial infarction: Mother(V17.3, Z82.49) Status:Active No pertinent family history: Father(V49.89, Z78.9) Status:Active Unknown Family Member Name Dates Details Family history of cerebrovas cular accident (CVA): Mother(V17.1, Z82.3) Status:Active Family history of coronary a rtery disease: Mother(V17.3, Z82.49) Status:Active Family history of myocardial infarction: Mother(V17.3, Z82.49) Status:Active No pertinent family history: Father(V49.89, Z78.9) Status:Active Unknown Family Member Name Dates Details Family history of cerebrovas cular accident (CVA): Mother(V17.1, Z82.3) Status:Active Family history of coronary a rtery disease: Mother(V17.3, Z82.49) Status:Active Family history of myocardial infarction: Mother(V17.3, Z82.49) Status:Active No pertinent family history: Father(V49.89, Z78.9) Status:Active Unknown Family Member Name Dates Details Family history of cerebrovas cular accident (CVA): Mother(V17.1, Z82.3) Status:Active Family history of coronary a rtery disease: Mother(V17.3, Z82.49) Status:Active Family history of myocardial infarction: Mother(V17.3, Z82.49) Status:Active No pertinent family history: Father(V49.89, Z78.9) Status:Active Unknown Family Member Name Dates Details Family history of cerebrovas cular accident (CVA): Mother(V17.1, Z82.3) Status:Active Family history of coronary a rtery disease: Mother(V17.3, Z82.49) Status:Active Family history of myocardial infarction: Mother(V17.3, Z82.49) Status:Active No pertinent family history: Father(V49.89, Z78.9) Status:Active Unknown Family Member Name Dates Details Family history of cerebrovas cular accident (CVA): Mother(V17.1, Z82.3) Status:Active Family history of coronary a rtery disease: Mother(V17.3, Z82.49) Status:Active Family history of myocardial infarction: Mother(V17.3, Z82.49) Status:Active No pertinent family history: Father(V49.89, Z78.9) Status:Active Unknown Family Member Name Dates Details Family history of cerebrovas cular accident (CVA): Mother(V17.1, Z82.3) Status:Active Family history of coronary a rtery disease: Mother(V17.3, Z82.49) Status:Active Family history of myocardial infarction: Mother(V17.3, Z82.49) Status:Active No pertinent family history: Father(V49.89, Z78.9) Status:Active Relationship Condition Age at Onset Recorded Date/T fransico father Malignant neoplasm of urinary bladder Unk nown Malignant melanoma Unknown Not Specified Pneumonia Unknown Unknown Family Member Name Dates Details No pertinent family history: Father(V49.89, Z78.9) Status:Active Family history of myocardial infarction: Mother(V17.3, Z82.49) Status:Active Family history of coronary a rtery disease: Mother(V17.3, Z82.49) Status:Active Family history of cerebrovas cular accident (CVA): Mother(V17.1, Z82.3) Status:Active Unknown Family Member Name Dates Details Family history of cerebrovas cular accident (CVA): Mother(V17.1, Z82.3) Status:Active Family history of coronary a rtery disease: Mother(V17.3, Z82.49) Status:Active Family history of myocardial infarction: Mother(V17.3, Z82.49) Status:Active No pertinent family history: Father(V49.89, Z78.9) Status:Active Relationship Condition Age at Onset Recorded Date/T fransico father Malignant neoplasm of urinary bladder Unk nown Malignant melanoma Unknown Not Specified Pneumonia Unknown father Unknown Malignant neoplasm Unknown Not Specified Unknown natural son Unknown Advance Directives No Advanced Directives Records Found Advance Directive Response Recorded Date/ Time Advance Directives Yes September 3:04pm Chief Complaint * SANAZ OLIVEIRA is being seen for follow-up of a hospitalization for. * Patient is in the office for follow-up for paroxysmal atrial fibrillation and CAD. She was in the hospital in October 2021 with a fall with injuries requiring surgery for fractures. At that time Xarelto was discontinued. She has not had any events since. Her blood pressure is under control. Her rhythm is sinus with PVCs. QTc interval is therapeutic on 40 mg daily of sotalol. The patient has had a Holter monitor recently which revealed 12% PVCs. She is asymptomatic with rare PVCs. There has been no indication of ischemic heart disease based on the stress test 2019 and her echocardiogram in October was unremarkable. * Assessment/recommendation: * 1 paroxysmal atrial fibrillation on 40 mg daily of sotalol and in sinus rhythm, due to recurrent major falls Xarelto was discontinued. The patient will go on aspirin 81 mg daily. If atrial fibrillation recurs we will consider watchman's device. * 2 coronary artery disease with previous coronary artery bypass surgery in [place]. We do not have details of the bypass from 2016. Nuclear stress test 2019 was normal. We will add aspirin to medical regimen and continue to aggressively treat risk factor for CAD. * 3 hypertension currently under control medical therapy which will continue unchanged * 4 dyslipidemia on statin therapy LDL is ordered for 6-month visit. * 5 overweight, patient has been actively trying to lose weight and has been succeeding in doing so. * 6 high risk medication with antiarrhythmic therapy utilizing sotalol. * 7 at risk for falls, education provided to prevent future falls. * 8 large volume of PVCs at 12% of total QRS complexes by Holter monitor 2021. Magnesium oxide 400 mgdaily will be added. We cannot add beta-nino therapy due to bradycardia. * 9 patient has depression and has been on medical therapy with success, counseled the patient on theneed to see her PCP to discuss issue of depression if necessary. * SANAZ OLIVEIRA is being seen for a 6 month follow-up of. * Patient is in the office for follow-up for the problems noted below. She currently has no areas that she was concerned about. She does have lymphedema for which I advised her not to take Lasix for but use compression stockings and elevation when she is not standing. She has remained in normal sinusrhythm on sotalol but she takes only 40 mg daily. She has been taken off of the anticoagulant due to recurrent falls and there has been no bleeding complications and no recurrent atrial fibrillation and no major falls. She had blood work that she provided to me for review and I did review it with her. His most recent lipid profile which we will investigate from her PCP if they have not done it kavita order a lipid profile. Patient was placed on magnesium last visit because of high volume of PVCs at 12%. She is not on beta-blockers because of history of bradycardia. We will repeat 24-hour Holter monitor to remeasure the volume of PVCs. * Assessment/recommendation: * 1 paroxysmal atrial fibrillation on 40 mg daily of sotalol and in sinus rhythm, due to recurrent major falls currently not anticoagulated due to high risk of anticoagulants with recurrent falls. * 2 coronary artery disease with previous coronary artery bypass surgery in [place]. We do not have details of the bypass from 2017. Nuclear stress test 2019 was normal. Currently on statin and aspirin. * 3 hypertension currently under control medical therapy which will continue unchanged * 4 dyslipidemia on statin therapy lab data from PCP were requested * 5 overweight, patient has been actively trying to lose weight and has been succeeding in doing so. * 6 high risk medication with antiarrhythmic therapy utilizing sotalol. * 7 lymphedema treated with compression stockings no diuretics are needed * 8 large volume of PVCs at 12% of total QRS complexes by Holter monitor 2021. Magnesium oxide 400 mgdaily has been tolerated. Repeat 24-hour Holter monitor is recommended * 9 increased depression score, advised patient to discuss with family physician * SANAZ OLIVEIRA is being seen for a 6 month follow-up of. * Patient is in the office for follow-up for the problems noted below. She currently has no areas that she was concerned about. She does have lymphedema for which I advised her not to take Lasix for but use compression stockings and elevation when she is not standing. She has remained in normal sinusrhythm on sotalol but she takes only 40 mg daily. She has been taken off of the anticoagulant due to recurrent falls and there has been no bleeding complications and no recurrent atrial fibrillation and no major falls. She had blood work that she provided to me for review and I did review it with her. His most recent lipid profile which we will investigate from her PCP if they have not done it wewill order a lipid profile. Patient was placed on magnesium last visit because of high volume of PVCs at 12%. She is not on beta-blockers because of history of bradycardia. We will repeat 24-hour Holter monitor to remeasure the volume of PVCs. * Assessment/recommendation: * 1 paroxysmal atrial fibrillation on 40 mg daily of sotalol and in sinus rhythm, due to recurrent major falls currently not anticoagulated due to high risk of anticoagulants with recurrent falls. * 2 coronary artery disease with previous coronary artery bypass surgery in [place]. We do not have details of the bypass from 2017. Nuclear stress test 2019 was normal. Currently on statin and aspirin. * 3 hypertension currently under control medical therapy which will continue unchanged * 4 dyslipidemia on statin therapy lab data from PCP were requested * 5 overweight, patient has been actively trying to lose weight and has been succeeding in doing so. * 6 high risk medication with antiarrhythmic therapy utilizing sotalol. * 7 lymphedema treated with compression stockings no diuretics are needed * 8 large volume of PVCs at 12% of total QRS complexes by Holter monitor 2021. Magnesium oxide 400 mgdaily has been tolerated. Repeat 24-hour Holter monitor is recommended * 9 increased depression score, advised patient to discuss with family physician * SANAZ OLIVEIRA is being seen for a 9 month follow-up of. * Patient is in the office for follow-up for the problems noted below. She has done well since her last visit and when we tested her rhythm with a monitor for 24 hours she had a marked drop in the volume of PVCs while she is on magnesium. She feels well with no palpitations and no breakthrough atrial fibrillation despite the fact that she is on a very small amount of sotalol. She is not anticoagulated by choice and because of risk of falling down. EKG confirmed normal sinus rhythm today. Examination was essentially normal except for slight overweight. She needs lab data which I requested. * Assessment/recommendation: * 1 paroxysmal atrial fibrillation on 40 mg daily of sotalol and in sinus rhythm, due to recurrent major falls currently not anticoagulated due to high risk of anticoagulants with recurrent falls. * 2 coronary artery disease with previous coronary artery bypass surgery in [place]. We do not have details of the bypass from 2016. Nuclear stress test 2019 was normal. Currently on statin and aspirin. * 3 hypertension currently under control medical therapy which will continue unchanged * 4 dyslipidemia on statin therapy lab data were ordered * 5 overweight, patient has been actively trying to lose weight and has been succeeding in doing so. * 6 high risk medication with antiarrhythmic therapy utilizing sotalol. * 7 large volume of PVCs at 12% on previous Holter monitor. A follow-up Holter monitor since last visit showed only 1500 PVCs while she is on magnesium and remains asymptomatic. She was very happy to hear that. Reason for Referral Specialty Diagnoses / Procedures Referred By Annabella bucio Referred To Contact Cardiology Diagnoses Coronary artery disease involving lower [place] coronary artery of lower [place] heart without angina pectoris Dizziness Procedures Vascular US Carotid Artery Duplex Bilateral Tawnya Fontana MD [address] [address], [address] [address] Referral ID Status Reason Start Date Expiration Date Visits Requested Visits Authorized [id number] Authorized Perform Procedure 12/19/2023 12/18/2024 1 1 Chief Complaint and Reason for Visit Chief Complaint OP SP INCREASED LT S HOULDER PAIN M25.511 - Pain in right shoulder Reason for Visit Closed right humeral fracture Left shoulder strain Osteoarthritis of left knee Primary osteoarthritis, left shoulder Chief Complaint OP SP INCREASED LT S HOULDER PAIN M25.511 - Pain in right shoulder Reason for Visit Closed right humeral fracture Left shoulder pain Left shoulder strain Osteoarthritis of left knee Primary osteoarthritis, left shoulder Additional Source Comments INFORMATION SOURCE (unrecogn ized section and content) DATE CREATED AUTHOR 07/06/2019 [facility] DATE CREATED AUTHOR AUTHOR'S ORGANIZ ATION 03/20/2020 [facility] DATE CREATED AUTHOR AUTHOR'S ORGANIZ ATION 12/18/2021 [facility] DATE CREATED AUTHOR AUTHOR'S ORGANIZ ATION 01/07/2023 [facility] DATE CREATED AUTHOR AUTHOR'S ORGANIZ ATION 02/27/2023 [facility] DATE CREATED AUTHOR AUTHOR'S ORGANIZ ATION 07/01/2023 [facility] DATE CREATED AUTHOR AUTHOR'S ORGANIZ ATION 07/01/2023 [facility] DATE CREATED AUTHOR AUTHOR'S ORGANIZ ATION 01/21/2024 [facility] DATE CREATED AUTHOR AUTHOR'S ORGANIZ ATION 03/12/2024 [facility] DATE CREATED AUTHOR AUTHOR'S ORGANIZ ATION 07/02/2024 [facility] DATE CREATED AUTHOR AUTHOR'S ORGANIZ ATION 07/20/2024 [facility] EPIC REASON FOR VISIT (unrecogniz ed section and content) Reason Comments RICARDOI ROLANDO Pt stopped taking he r statin 6 months ago she thought it would make her legs feel better Specialty Diagnoses / Procedures Referred By Annabella t Referred To Contact Cardiology Diagnoses Coronary artery disease involving lower [place] coronary artery of lower [place] heart without angina pectoris Dizziness Procedures Vascular US Carotid Artery Duplex Bilateral Tawnya Fontana MD [address] [place] [address] Referral ID Status Reason Start Date Expiration Date Visits Requested Visits Authorized [id number] Authorized Perform Procedure 12/19/2023 12/18/2024 1 1 Care Teams (unrecognized sec tion and content) Team Status: Active Member Role Status Dates Austin Torres II MD Primary Care Provider Active Team Status: Inactive Member Role Status Dates Austin Torres II MD Primary Care Provider Active Eladio Posada DO Attending Provider Active [facility] Lab Technician Relationship Specialty Start Date End Date Austin Torres II PCP - General Internal Medicine 03/19/15 [facility] Technician Relationship Specialty Start Date End Date Austin Torres MD [address] [place] [address] PCP - [facility] 12/07/21 Austin Torres MD [address] [place] [address] PCP - General Internal Medicine 03/29/23 [facility] Lab Technician Relationship Specialty Start Date End Date Austin Torres MD [address] [place] [address] [facility] 12/07/21 Austin Torres MD [address] [place] [address] PCP - General Internal Medicine 03/29/23 [facility] Lab Technician Relationship Specialty Start Date End Date Austin Torres MD [address] [place] [address] PCP - General 06/23/23 Team Status: Inactive Member Role Status Dates Austin Torres II MD Primary Care Provider Active Start: March 11, 2024 End: March 11, 2024 Eladio Posada DO Attending Provider Active S tart: March 11, 2024 End: March 11, 2024 Team Status: Active Member Role Status Dates Austin Torres II MD Primary Care Provider Active Start: March 11, 2024 Eladio Posada DO Attending Provider Active S tart: March 11, 2024 Goals (unrecognized section and content) Goals may be documented in a n alternate section Source Comments (unrecognize d section and content) In the event this informatio n is protected by the Federal Confidentiality of Alcohol and Drug Abuse Patient Records regulations: The Federal rules restrict any use of the information to criminally investigate or prosecute any alcohol or drug abuse patient.[facility] FOR RECORDS PERTAINING TO PATIENTS WHO ARE OR HAVE BEEN ENROLLED IN A CHEMICAL DEPENDENCY/SUBSTANCEABUSE PROGRAM, SOME INFORMATION MAY BE OMITTED. This clinical summary was aggregated from multiple sources. Caution should be exercised in using it in the provision of clinical care. This summary normalizes information from multiple sources, and as a consequence, information in this document may materially change the coding, format and clinical context of patient data. In addition, data may be omitted in some cases. CLINICAL DECISIONS SHOULD BE BASED ON THE PRIMARY CLINICAL RECORDS. [facility]. provides no warranty or guarantee of the accuracy or completeness of information in this document.
== END 2024-08-07 14:10 | disposition home or self-care (01) ==
LOC: US 14:09
PROVIDERS: PCP Internal Medicine; Visit Provider Physician Assistant
DX: R22.9 Localized swelling, mass and lump, unspecified (principal); K43.9 Ventral hernia without obstruction or gangrene
CPT/HCPCS: 76705

== ENCOUNTER 2025-01-28 10:38 | Outpatient (OUT) | payer MEDICARE, SELFPAY ==
--- OUTSIDE RECORDS SUMMARY | 2025-01-28 11:12 | XMS_ITS | CCD ---
Author Organization [facility] Care Team Providers Care [place] Name Role Phone AUSTIN RENTERIA Admitting Unavailable AUSTIN RENTERIA Attending Unavailable AUSTIN TORRES Referring Unavailable AUSTIN TORRES Primary Care Unavailable Unavailable Unavailable Eladio Douglass Unavailable Mairana Duggan Unavailable DAWSON ., DR HAZEL Walker Admitting Unavailable OSMAN ., DR HAZEL Walker Attending Unavailable BRIAN, DR BERMAN Primary Care Unavailable OSMAN ., DR HAZEL Walker Consulting Unavailable OSMAN ., DR HAZEL Walker Admitting Unavailable OSMAN ., DR HAZEL Walker Attending Unavailable BRIAN, DR BERMAN Primary Care Unavailable BENTLEY ., DALE Consulting Unavailable OSMAN ., DR HAZEL Walker Admitting Unavailable OSMAN ., DR HAZEL Walker Attending Unavailable BRIAN, DR BERMAN Primary Care Unavailable OSMAN ., DR HAZEL Walker Consulting Unavailable OSMAN ., DR HAZEL Walker Admitting Unavailable OSMAN ., DR HAZEL Walker Attending Unavailable BRIAN, DR BERMAN Primary Care Unavailable OSMAN ., DR HAZEL Walker Consulting Unavailable OSMAN ., DR HAZEL Walker Admitting Unavailable OSMAN ., DR HAZEL Walker Attending Unavailable BRIAN, DR BERMAN Primary Care Unavailable BENTLEY ., DALE Consulting Unavailable OSMAN ., DR HAZEL Walker Admitting Unavailable OSMAN ., DR HAZEL Walker Attending Unavailable BRIAN, DR BERMAN Primary Care Unavailable OSMAN ., DR HAZEL Walker Consulting Unavailable CLAUDIA OLIVER Admitting Unavailable CLAUDIA OLIVER Attending Unavailable BRIAN, DR BERMAN Primary Care Unavailable BARCO, DR RANDY Sullivan Consulting Unavailable CLAUDIA OLIVER Consulting Unavailable QUENTIN Torres Primary Care Provider DO Eladio Douglass Attending Provider [phone] Austin Torres II Primary Care Provider Austin Torres Unavailable Lomeli, Dr. Tawnya Stockton Referring Sheri vailable Lomeli, Dr. Tawnya Stockton Attending Sheri vailable Torres II, Dr. Austin Morrissey Primary Care Sheri vailable Lomeli, Dr. Tawnya Stockton Referring Sheri vailable Lomeli, Dr. Tawnya Stockton Attending Sheri vailable Brian II, Dr. Austin Morrissey Primary Care Sheri vailable Yung, Dr. Jono Gan Attending Unava ilable Torres II, Dr. Austin Morrissey Primary Care Sheri vailable Yung, Dr. Jono Gan Referring Unava ilable Lomeli, Dr. Tawnya Stockton Referring Sheri vailable Lomeli, Dr. Tawnya Stockton Attending Sheri vailable Torres II, Dr. Austin Morrissey Primary Care Sheri Austin Abraham MD Unavailable [phone] Austin Torres MD Primary Care Provider Austin Torres MD Primary Care Provider [phone] TAWNYA LOMELI Referring Unavailable AUSTIN TORRES Primary Care Unavailable QUENTIN Torres Primary Care Provider DO Eladio Douglass Attending Provider Austin Torres MD Unavailable TAWNYA LOMELI Attending Unavailable AUSTIN TORRES B Primary Care Unavailable TAWNYA LOMELI Attending Unavailable TAWNYA LOMELI Referring Unavailable AUSTIN TORRES B Primary Care Unavailable Dea Donald Unavailable Austin Torres MD Primary Care Provider [phone] Austin Torres MD Unavailable [phone] Kory Najera Admitting Unavailable Kory Najera Attending Unavailable Austin Torres Primary Care Unavailable Austin Torres Primary Care Unavailable Eladio Douglass Admitting Unavailable Eladio Douglass Attending Unavailable Austin Torres Primary Care Unavailable Aiden Brunson Admitting Unavailable Aiden Brunson Attending Unavailable Michelle SMITH, Anahi Unavailable Enrique MOLINA, Morelia Unavailable Unavailable AUSTIN TORRES Attending Unavailable HEMMER, DEA M Attending Unavailable BLACKSTON, SANTHOSH T Attending Unavailable ALBINO, ELADIO Referring Unavailable HEMMER, DEA M Attending Unavailable KELBLEY, MERARI Attending Unavailable ALBINO, ELADIO Referring Unavailable BRINK, RAQUEL Attending Unavailable ALBINO, ELADIO Referring Unavailable BLACKSTON, SANTHOSH T Attending Unavailable ALBINO, ELADIO Referring Unavailable BLACKSTON, SANTHOSH T Attending Unavailable ALBINO, ELADIO Referring Unavailable BRINK, [...] RAQUEL Attending Unavailable ALBINO, ELADIO Referring Unavailable BENITO, CLAUDIA M Attending Unavailable BRINK, RAQUEL Attending Unavailable ALBINO, ELADIO Referring Unavailable BENITO, CLAUDIA Fuentes Attending Unavailable BRINK, RAQUEL Attending Unavailable ALBINO, ELADIO Referring Unavailable BRINK, RAQUEL Attending Unavailable ALBINO, ELADIO Referring Unavailable BRINK, RAQUEL Attending Unavailable ALBINO, ELADIO Referring Unavailable HEMMER, EDA M Attending Unavailable GABRIEL ALVAREZ Attending Unavailable GABRIEL ALVAREZ Referring Unavailable BLACKSTON, SANTHOSH T Attending Unavailable HEMMER, DEA M Referring Unavailable BRINK, RAQUEL Attending Unavailable HEMMER, DEA M Referring Unavailable BRINK, RAQUEL Attending Unavailable HEMMER, DEA M Referring Unavailable BRINK, RAQUEL Attending Unavailable HEMMER, DEA M Referring Unavailable BRINK, RAQUEL Attending Unavailable HEMMER, DEA M Referring Unavailable KELBLEY, MERARI Attending Unavailable HEMMER, DEA M Referring Unavailable BRINK, RAQUEL Attending Unavailable HEMMER, DEA M Referring Unavailable KELBLEY, MERARI Attending Unavailable HEMMER, DEA M Referring Unavailable KELBLEY, MERARI Attending Unavailable HEMMER, DEA M Referring Unavailable BRINK, RAQUEL Attending Unavailable HEMMER, DEA M Referring Unavailable KELBLEYMERARI Attending Unavailable HEMMER, DEA M Referring Unavailable AIDEN BRUNSON Attending Unavailable HEMMER, DEA M Referring Unavailable BRINK, RAQUEL Attending Unavailable HEMMER, DEA M Referring Unavailable RAQUEL BARRIENTOS Attending Unavailable HEMDEA HEWITT Referring Unavailable DEA RODRIGUEZ Attending Unavailable RAQUEL BARRIENTOS Attending Unavailable DEA RODRIGUEZ Referring Unavailable MERARI MAZA Attending Unavailable HEMDEA HEWITT Referring Unavailable AIDEN BRUNSON Attending Unavailable HEMDEA HEWITT Attending Unavailable HEMDEA HEWITT Attending Unavailable Allergies Allergy Classification Reported Allergen(s) Allergy Type Date of Onset Reaction(s) Facility (7 sources) Clindamycin; Translations: [CLINDAMYCIN] Drug Allergy 014 Unknown Reaction [facility] Repository (12 sources) Codeine; Translations: [CODEINE] Drug Allergy Unknown, Unknown Reaction [facility] Repository (1 source) Hydroxychloroquine Drug Allergy [facility] Repository (1 source) Hydroxychloroquine Drug Allergy [facility] Repository (1 source) Minocycline Drug Allergy [facility] Repository (20 sources) Clindamycin; Translations: [Clindamycin] Drug Allergy 013 Rash, Unknown [facility] Work Phone: (20 sources) Codeine; Translations: [Codeine Derivatives] Drug Allergy 004 Mental Status Change, Dizziness, Unknown [facility] (20 sources) Hydroxychloroquine Drug Allergy 011 [facility] (8 sources) Minocycline Drug Allergy 013 Other: See Comments [facility] Work Phone: (5 sources) HYDROXYLCHOROQUINE HLC Propensity to adverse reactions Unknown [facility] Other (5 sources) CLINDOMYCIN Propensity to adverse reactions Unknown [facility] Other (1 source) cefdinir Drug Allergy [facility] Repository (1 source) Hydroxychloroquine Drug Allergy [facility] Repository (1 source) Minocycline Drug Allergy [facility] Repository (1 source) cefdinir Drug Allergy 016 Intolerance [facility] (1 source) Hydroxychloroquine Drug Allergy 011 Swelling [facility] (20 sources) cefdinir Drug Allergy 016 GI intolerance [facility] (20 sources) DULoxetine Drug Allergy 022 Unknown [facility] (20 sources) Minocycline Drug Allergy 013 Other, Unknown [facility] (20 sources) quiNINE Drug Allergy 017 [facility] (20 sources) Other Propensity to adverse reactions 003 [facility] (1 source) Clindamycin Drug Allergy [facility] Repository (1 source) Codeine Drug Allergy [facility] Repository (1 source) Hydroxychloroquine Drug Allergy [facility] Repository (1 source) Minocycline Drug Allergy [facility] Repository Medications Current Medications Medication Drug Class(es) [...] tablet (500 mg) by mouth if needed. Active take 1 tablet by lisa th every four to six hours as needed Acetaminophen 500 MG Oral Tablet TAKE 1 TABLET EVERY 4 TO 6 HOURS NEEDED. Quantity: 0 Refills: 0 Ordered: 25-Jan-2022 DO Active [id number] 200 actuat albuterol 0.09 mg/actuat metered dose [...] 0 Refills: 0 Ordered: 15-Sep-2022 DO Active amLODIPine 2.5 mg oral tablet (20 sources) Dihydropyridine Calcium Channel Nino Start: 11-11-2024 End: 12-16-2025 take 1 tablet by mouth in the morning amLODIPine (Norvasc) 2.5 MG tablet Indications: Benign essential hypertension (CMS/HCC) Take 1 tablet (2.5 mg) by mouth in the morning. 100 tablet 3 11/11/2024 12/16/2025 Active Start: 06-14-2024 take 1 tablet by lisa th in the morning amLODIPine (Norvasc) 2.5 MG tablet Indications: Benign essential hypertension (CMS/HCC) TAKE 1 TABLET BY MOUTH IN THE MORNING 100 tablet 2 06/14/2024 Active Start: 08-27-2019 End: 12-03-2019 take 1 tablet by mouth in the morning amLODIPine (Norvasc) 2.5 MG tablet Indications: Benign essential hypertension (CMS/HCC) TAKE 1 TABLET BY MOUTH IN THE MORNING 100 tablet 2 06/14/2024 Active Anoro Ellipta 62.5-25 MCG/INH (1 source) take 1 puff(s) by inhalation once daily Anoro Ellipta 62.5-25 MCG/INH 1 puff Inhalation Once a day for 90 days Active ARIPiprazole 2 mg oral tablet (2 sources) Atypical Antipsychotic Start: 01-28-20 take 1 tablet by mouth once daily ARIPiprazole (Abilify) 2 MG tablet Indications: Moderate episode of recurrent major depressive disorder (CMS/HCC) Take 1 tablet (2 mg) by mouth Daily 30 tablet 2 01/27/2025 Active Aspir-81 81 MG (5 sources) take 1 tablet by mouth once daily Aspir-81 81 MG 1 tablet Orally Once a day *please review for potential _update for e-prescription and drug interaction check* Active aspirin 81 mg delayed release oral tablet (20 sources) Platelet Aggregation Inhibitor, Nonsteroidal Anti-inflammatory Drug Start: 01-26-20 take 1 tablet by mouth once daily aspirin 81 mg EC tablet Take 1 tablet (81 mg) by mouth once daily. 01/25/2022 Active Start: 08-27-2019 End: 11-26-2019 take [...] mouth as directed. 2 times a week atorvastatin 40 mg oral tablet (20 sources) HMG-CoA Reductase Inhibitor Start: 025 End: 026 take 1 tablet by mouth at bedtime atorvastatin (Lipitor) 40 MG tablet Indications: Pure hypercholesterolemia (CMS/HCC) Take 1 tablet (40 mg) by mouth at bedtime 100 tablet 3 11/11/2024 12/16/2025 Active Start: 10-29-2024 take 1 tablet by lisa th at bedtime atorvastatin (Lipitor) 40 MG tablet Indications: Pure hypercholesterolemia (CMS/HCC) TAKE 1 TABLET BY MOUTH AT BEDTIME 100 tablet 3 10/29/2024 Active Start: 08-27-2019 End: 03-21-2025 take 1 tablet by mouth at bedtime atorvastatin (Lipitor) 40 MG tablet Indications: Pure hypercholesterolemia (CMS/HCC) Take 1 tablet (40 mg) by mouth at bedtime 90 tablet 3 03/21/2024 10/29/2024 Discontinued Comment on above: Take 40 mg by mouth once daily. azithromycin 250 mg oral tablet (6 sources) Macrolide Antimicrobial Start: 12-27-19 End: 01-01-20 take 2 tablets by mouth once daily, then take 1 tablet by mouth once daily azithromycin (Zithromax) 250 MG tablet Indications: Acute non-recurrent sinusitis, unspecified location Take 2 tablets (500 mg) by mouth Daily for 1 day, THEN 1 tablet (250 mg) Daily for 4 days. 6 tablet 12/27/2024 01/01/2025 Active Start: 09-24-2024 End: 09-28-2024 take 2 tablets by mouth once daily, then take 1 tablet by mouth once daily azithromycin (Zithromax) 250 MG tablet Indications: COPD exacerbation (CMS/HCC) Take 2 tablets (500 mg) by mouth Daily for 1 day, THEN 1 tablet (250 mg) Daily for 4 days. 6 tablet 09/24/2024 09/28/2024 Active Start: 12-13-2023 End: 12-18-2023 take 2 tablets by mouth once daily, then take 1 tablet by mouth once daily azithromycin (Zithromax) 250 MG tablet Indications: Acute non-recurrent sinusitis, unspecified location Take 2 tablets (500 mg) by mouth Daily for 1 day, THEN 1 tablet (250 mg) Daily for 4 days. 6 tablet 0 12/13/2023 12/18/2023 Active b complex vitamins capsule (20 sources) take 1 capsule by mo [facility] in the morning b complex vitamins capsule Take 1 capsule by mouth in the morning. Active take 1 capsule by mouth in the orning b complex vitamins capsule Take 1 capsule by mouth in the morning. 0 Active calcium citrate 1500 mg / cholecalciferol 250 unt oral tablet (6 sources) Vitamin D Start: 09-08-2021 calcium citrat e-vitamin D3 315 mg-6.25 mcg (250 unit) tablet 1 tablet (315 mg) once daily. 09/08/2021 Active Start: 09-08-2021 take 1 tablet by lisa twice daily Calcium Citrate-Vitamin D3 (Citracal + D Maximum) 315 mg-6.25 mcg (250 unit) tablet Active 1 TAB PO Twice daily September 08, 2021 12:00am citalopram 20 mg oral tablet (20 sources) Serotonin Reuptake Inhibitor Start: 12-27-2024 take 1 tablet by mouth in the morning citalopram (CeleXA) 20 MG tablet Indications: Mild episode of recurrent major depressive disorder (HCC) (CMS/HCC) Take 1 tablet (20 mg) by mouth in the morning. 90 tablet 3 12/27/2024 Active Start: 09-24-2024 End: 10-21-2024 take 1 tablet by mouth in the morning citalopram (CeleXA) 20 MG tablet Indications: Mild episode of recurrent major depressive disorder (HCC) (CMS/HCC) Take 1 tablet (20 mg) by mouth in the morning. 90 tablet 1 09/24/2024 10/21/2024 Discontinued Start: 03-21-2024 End: 03-21-2025 take 1 tablet by mouth in the morning citalopram (CeleXA) 10 MG tablet Indications: Mild episode of recurrent major depressive disorder (HCC) (CMS/HCC) Take 1 tablet (10 mg) by mouth in the morning. 10/21/2024 10/28/2024 Discontinued (Ineffective) Start: 09-04-2021 take 20 mg by mouth [...] suspension (20 sources) Calcineurin Inhibitor Immunosuppressant Start: 04-03-2024 End: 07-02-2024 cycloSPORINE (Restasis) 0.05 % ophthalmic emulsion Indications: Chronic dryness of both eyes Administer 1 drop into both eyes every 12 (twelve) hours Restasis 0.05 % eye drops in a dropperette 1.5 mL 3 04/03/2024 07/02/2024 Active Start: 04-13-2023 cycloSPORINE ( Restasis) 0.05 % ophthalmic emulsion Indications: Chronic dryness [...] (ONE) DROP IN BOTH EYES TWICE DAILY Active Restasis 0.05 % 1 into affected eye Ophthalmic Twice a day Active Restasis 0.05 % 1 into affected eye Ophthalmic Twice a day Active docosahexaenoic acid 120 mg / eicosapentaenoic acid 180 mg oral capsule (16 sources) take 1 capsule by mouth once daily fish oil concentrate ([place]-3) 120-180 mg capsule Take 1 capsule (1 g) by mouth once daily. Active 30 actuat fluticasone furoate 0.1 mg/actuat / umeclidinium 0.0625 mg/actuat / vilanterol 0.025 mg/actuat dry powder inhaler (20 sources) Anticholinergic , Corticosteroid, beta2-Adrenergi c Agonist Start: 11-11-19 End: 02-10-20 take 1 puff(s) by inhalation once daily Fluticasone-Umeclid in-Vilant (Trelegy Ellipta) 100-62.5-25 MCG/ACT aerosol powder Indications: Chronic obstructive pulmonary disease, unspecified COPD type (CMS/HCC) Inhale 1 puff Daily 3 each 3 11/11/2024 02/09/2025 Active Start: 07-19-2024 End: 10-17-2024 take 1 puff(s) by inhalation once daily Ugegijxhbww-Yeclihjwq-Zyorgc (Trelegy Ellipta) 100-62.5-25 MCG/ACT aerosol powder Indications: Chronic obstructive pulmonary disease, unspecified COPD type (CMS/HCC) Inhale 1 puff Daily 3 each 3 07/19/2024 Active Start: 03-21-2024 take 1 puff(s) by inhalation once daily Qysdwjqbcvs-Fipnzwmnr-Eixohx (Trelegy Ellipta) 100-62.5-25 MCG/ACT aerosol powder Indications: Chronic obstructive pulmonary disease, unspecified COPD type (CMS/HCC) Inhale 1 puff Daily 3 each 3 03/21/2024 Active Start: 04-13-2023 take 1 puff(s) by inhalation in the morning Lyrpebpoole-Cemdaldqt-Adyuyj (Trelegy Ellipta) 100-62.5-25 MCG/ACT aerosol powder Indications: Chronic obstructive pulmonary disease, unspecified COPD type (CMS/HCC) Inhale 1 puff in the morning. 1 each 04/13/2023 Active Start: 02-09-2022 Trelegy Ellipt a 100-62.5-25 MCG/ACT Inhalation Aerosol Powder Breath Activated Quantity: 60 Refills: 0 Ordered: 31-Aug-2022 DO Start : 09-Feb-2022 Active take 1 puff(s) by mo uth in the morning Trelegy Ellipta 100-62.5-25 mcg blister with device INHALE 1 PUFF BY MOUTH IN THE MORNING Active furosemide 20 mg oral tablet (20 sources) Loop Diuretic Start: 11-13-2023 End: 12-16-2025 take 1 tablet by mouth once daily furosemide (Lasix) 20 MG tablet Indications: Benign essential hypertension (CMS/HCC) Take 1 tablet (20 mg) by mouth Daily 100 tablet 3 11/11/2024 12/16/2025 Active Start: 09-08-2021 Furosemide Act tam 20 [...] 5 year 5 year (5 sources) Start: 05-31-2018 Handicap Placard 5 year 5 year 1 misc daily for 5 year *please review for potential _update for e-prescription and drug interaction check* DX- 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 Active latanoprost 0.05 mg/ml ophthalmic solution (20 sources) Prostaglandin Analog Start: 09-08-2021 latanoprost, PF, 0.005 % drops Administer into both eyes once daily at bedtime. 09/08/2021 Active Start: 09-08-2021 take 1 drop(s) into the eye(s) at bedtime Latanoprost (Xalatan) 0.005 % drops Active 1 DROPS EYE-BOTH Bedtime September 08, 2021 12:00am latanoprost (Xal atan) 0.005 % ophthalmic solution 1 (one) time each day at the same time. 1 drop into affected eye in the evening Ophthalmic Once a day Active take 1 drop(s) into the eye(s) [...] mouth in the morning. 0 01/10/2023 Active meloxicam 7.5 mg oral tablet (20 sources) Nonsteroidal Anti-inflammatory Drug Start: 01-13-2025 take 1 tablet by mouth once daily meloxicam (Mobic) 7.5 MG tablet Indications: Primary osteoarthritis of right wrist Take 1 tablet (7.5 mg) by mouth Daily 90 tablet 11 01/13/2025 Active Start: 06-06-2024 End: 12-16-2025 take 0.5 tablet by mouth once daily meloxicam (Mobic) 15 MG tablet Indications: Generalized osteoarthrosis Take 0.5 tablets (7.5 mg) by mouth Daily 50 tablet 3 11/11/2024 12/16/2025 Active methylPREDNISolone 4 mg oral tablet (4 sources) Corticosteroid Start: 04-29-2022 methylPREDNISo lone 4 MG as directed Orally for 7 days Apr, Active Start: 04-10-2015 Depo-Medrol 20 mg Apr, 60 mg montelukast 10 mg oral tablet (20 sources) Leukotriene Receptor Antagonist Start: 11-11-2024 End: 11-11-2025 take 1 tablet by mouth once daily montelukast (Singulair) 10 MG tablet Indications: Allergic rhinitis due to pollen, unspecified seasonality Take 1 tablet (10 mg) by mouth Daily 100 tablet 3 11/11/2024 11/11/2025 Active Start: 07-22-2024 take 1 tablet by lisa th once daily montelukast (Singulair) 10 MG tablet Indications: Allergic rhinitis due to pollen, unspecified seasonality Take 1 tablet (10 mg) by mouth Daily 100 tablet 3 07/22/2024 Active Start: 11-21-2017 take 1 tablet by lisa th once daily montelukast (Singulair) 10 MG tablet Indications: Allergic rhinitis due to pollen, unspecified seasonality Take 1 tablet (10 mg) by mouth Daily 100 tablet 3 04/10/2024 Active Multiple Vitamins-Minerals (EYE VITAMINS PO) (20 sources) Multiple Vitamins-Minerals (EYE VITAMINS PO) Take by mouth Active Multivitamins (5 sources) Multivitamins Or ally *please review for potential _update for e-prescription and drug interaction check* Active oxyCODONE hydrochloride 5 mg oral tablet (3 sources) Opioid Agonist Start: take 5 mg by mouth every six hours Oxycodone Active 5 MG PO Q6H 12 September 14, 2021 pantoprazole 40 mg delayed release oral tablet (5 sources) Proton Pump Inhibitor take 1 tablet by mouth every twenty-four hours Pantoprazole Sodium 40 MG 1 tablet Orally Once a day for 90 days Active predniSONE 10 mg oral tablet (10 sources) Start: End: take 4 tablets by mouth once daily, then take 3 tablets by mouth once daily, then take 2 tablets by mouth once daily, then take 1 tablet by mouth once daily predniSONE (Deltasone) 10 MG tablet Indications: Flare of rheumatoid arthritis (CMS/HCC) Take 4 tablets (40 mg) by mouth Daily for 4 days, THEN 3 tablets (30 mg) Daily for 4 days, THEN 2 tablets (20 mg) Daily for 4 days, THEN 1 tablet (10 mg) Daily for 4 days. Hold Meloxicam while on the steroid. 40 tablet 09/24/2024 10/10/2024 Active pregabalin 100 mg oral capsule (20 sources) Start: End: take 1 capsule by mouth in the morning pregabalin (Lyrica) 100 MG capsule Indications: Sensory polyneuropathy Take 1 capsule (100 mg) by mouth in the morning and 1 capsule (100 mg) before bedtime. 180 capsule 1 12/18/2024 Active Start: 12-04-2023 take 1 capsule by mo uth in the morning pregabalin (Lyrica) 100 MG capsule Indications: Sensory polyneuropathy Take 1 capsule (100 mg) by mouth in the morning and 1 capsule (100 mg) before bedtime. 60 capsule 3 12/04/2023 Active Start: 05-05-2023 End: 07-01-2024 pregabalin (Lyrica) 75 mg ca psule 1 capsule (75 mg) once daily. 05/05/2023 07/01/2024 Discontinued (Dose adjustment) Lyrica CAPS TAKE 1 CAPSULE Daily Quantity: 0 Refills: 0 Ordered: 30-Jun-2023 DO Active ProAir HFA 108 (90 Base) MCG/ACT (1 source) Start: 12-13-2016 take 2 puff(s) by inhalation every four hours as needed ProAir HFA 108 (90 Base) MCG/ACT 2 puffs as needed Inhalation every 4 hrs for 90 days Dec, Active sotalol hydrochloride 80 mg oral tablet (20 sources) Antiarrhythmic Start: 03-24-2024 End: 03-24-2025 take 0.5 tablet by mouth once daily sotalol (Betapace) 80 mg tablet Indications: Paroxysmal atrial fibrillation (Multi) Take 0.5 tablets (40 mg) by mouth once daily. 45 tablet 3 03/24/2024 03/24/2025 Active Start: 12-03-2019 take 40 mg by mouth once daily Sotalol Active 40 MG PO Daily December 03, 2019 1:00am take 1 tablet by mouth once gui y sotalol (Betapace) 80 MG tablet 80 mg 1 (one) time each day at the same time. 1 half tablet = 40mg Orally daily Active take 0.5 tablet by m outh once daily sotalol (Betapace) 80 mg tablet Take 0.5 tablets (40 mg) by mouth once daily. 0 Active Comment on above: Take 80 [...] Drug Class(es) Dates Sig (Normalized) Sig (Original) Ascorbic Acid (13 sources) Vitamin C ascorbic acid (V ITAMIN C ORAL) Take by mouth once daily. 0 Active take 1 tablet by mouth once gui y Vitamin C 1000 MG Oral Tablet TAKE 1 TABLET DAILY. Quantity: 0 Refills: 0 Ordered: 15-Sep-2022 DO Active Comment on above: Take by mouth once d aily. brexpiprazole 0.5 mg oral tablet (16 sources) Atypical Antipsychotic Start: 024 End: 025 take 1 tablet by mouth once daily Brexpiprazole (Rexulti) 0.5 MG tablet Indications: Severe episode of recurrent major depressive disorder, without psychotic features (HCC) (CMS/HCC) Take 0.5 mg by mouth Daily 30 tablet 2 10/28/2024 01/27/2025 Discontinued (Cost of medication) cholecalciferol 0.025 mg oral capsule (18 sources) Vitamin D Start: 019 End: 020 take 1 capsule by mouth once daily [...] to affected ar ea. given for hands 1 ml denosumab 60 mg/ml prefilled syringe (8 sources) RANK Ligand Inhibitor Start: 08-31-20 End: 07-09-20 24 Prolia 60 MG/ML solution prefilled syringe Inject 60 mg under the skin every 6 (six) months 08/31/2023 07/09/2024 Discontinued (Cost of medication) DULoxetine 60 mg delayed release oral capsule (3 sources) Serotonin and Norepinephrine Reuptake Inhibitor Start: 08-27-20 End: 11-26-19 take 1 capsule by mouth once daily Duloxetine (Cymbalta) 60 mg Capsule,Delayed Release(Dr/Ec) Discontinued 60 MG PO Daily August 27, 2019 12:00am November 26, 2019 2:37pm ipratropium bromide 0.2 mg/ml inhalation solution (3 sources) Anticholinergic Start: 08-27-20 End: 11-26-19 Ipratropium Bryan Discontinued 2.5 ML INHALATION every 6 to 8 hours August 27, 2019 12:00am November 26, 2019 2:37pm levoFLOXacin 500 mg oral tablet (3 sources) Quinolone Antimicrobial Start: 11-26-19 End: 12-03-19 take 500 mg by mouth once daily Levofloxacin Discontinued 500 MG PO Daily November 26, 2019 1:00am December 03, 2019 1:41pm Lidocaine (3 sources) Antiarrhythmic, Amide Local Anesthetic Start: 04-10-20 Lidocaine Apr, 1 mL magnesium gluconate 550 mg oral tablet (20 sources) Start: 08-27-20 End: 11-26-19 take 30 mg by mouth once daily Magnesium Discontinued 30 MG PO Daily August 27, 2019 12:00am November 26, 2019 2:37pm take 1 tablet by mouth at bedtim e magnesium gluconate (Magonate) 500 MG tablet Take 500 mg by mouth at bedtime Active metoprolol tartrate 25 mg oral tablet (20 sources) beta-Adrenergic Nino Start: 08-27-2019 End: 12-03-2019 take 25 mg by mouth twice daily Metoprolol Tartrate Discontinued 25 MG PO Twice daily August 27, 2019 12:00am December 03, 2019 1:41pm metroNIDAZOLE 7.5 mg/ml topical cream (3 sources) Nitroimidazole Antimicrobial Start: 01-30-2023 End: 12-13-2023 metroNIDAZOLE (Metrocream) 0.75 % cream 1 (one) [...] Comment on above: Take by mouth. nystatin [id number] unt/ml / triamcinolone acetonide 1 mg/ml topical cream (3 sources) Polyene Antifungal, Corticosteroid End: 12-13-2023 nystatin-triamcino lone (Mycolog II) cream nystatin-triamcino lone 100,000 unit/g-0.1 % topical cream 0 12/13/2023 Discontinued (Therapy completed) omeprazole 20 mg oral tablet (3 sources) Proton Pump Inhibitor Start: 08-27-2019 End: 11-26-2019 take 20 mg by mouth once daily [...] tablet (9 sources) Factor Xa Inhibitor Start: 12-03-2019 End: 10-27-2021 take 1 tablet by mouth once daily Rivaroxaban (Xarelto) 20 mg Tablet Discontinued 20 MG PO Daily with supper 30 December 03, 2019 1:00am October 27, 2021 3:34pm Comment on above: Take 20 mg by mouth daily with dinner. tiZANidine 4 mg oral tablet (3 sources) Central alpha-2 Adrenergic Agonist Start: 08-30-2023 End: 12-13-2023 tiZANidine (Zanaflex) 4 MG tablet Indications: Lumbosacral radiculopathy at L5 , Lumbosacral spondylosis with radiculopathy , Insomnia due to medical condition 1/2-1 po hs 30 tablet 3 08/30/2023 12/13/2023 Discontinued (Therapy completed) triamcinolone acetonide 40 mg/ml injectable suspension (10 sources) Corticosteroid Start: 05-16-2022 Kenalog-40 May, 40 mg Start: 08-03-2018 KENALOG [...] Comment on above: Take 1 capsule by mo ut once daily. vortioxetine 10 mg oral tablet [...] Documented Da te Episodic/Chronic Acquired foot deformities (20 sources) Hammer toe; Translations: [Other hammer toe(s) (acquired), right foot] Onset: 07-05-2017 Resolved: 08-03-2023 03-30-2023 Chronic Adjustment disorders (20 sources) Adjustment disorder with depressed mood; Translations: [Adjustment disorder with depressed mood] Onset: 04-19-2021 03-30-2023 Chronic Anxiety disorders (20 sources) Anxiety; Translations: [Anxiety disorder, unspecified] Onset: 12-11-2019 03-30-2023 Chronic Asthma (20 sources) Reactive airway disease; Translations: [Unspecified asthma, uncomplicated] Onset: 09-25-2015 03-30-2023 Chronic Cardiac arrest and ventricular fibrillation (3 sources) Ventricular fibrillation; Translations: [Ventricular fibrillation] 10-26-2021 Chronic Cardiac dysrhythmias (20 sources) Paroxysmal atrial fibrillation; Translations: [Atrial fibrillation] Onset: 02-13-2017 12-02-2019 Chronic Chronic kidney disease (20 sources) Chronic kidney disease stage 3; Translations: [Stage 3 chronic kidney disease] Onset: 04-10-2024 Resolved: 04-10-2024 11-26-2019 Chronic Chronic obstructive pulmonary disease and bronchiectasis (20 sources) Pulmonary emphysema; Translations: [Emphysema, unspecified] Onset: 11-04-2015 11-26-2019 Chronic Coagulation and hemorrhagic disorders (2 sources) Thrombophilia; Translations: [Other thrombophilia] 12-13-2023 Chronic Congestive heart failure; nonhypertensive (20 sources) Chronic diastolic heart failure; Translations: [Unspecified diastolic (congestive) heart failure] Onset: 12-11-2019 11-26-2019 Chronic Coronary atherosclerosis and other heart disease (20 sources) Coronary atherosclerosis; Translations: [Coronary atherosclerosis of solomon coronary artery] Onset: 06-15-2017 Resolved: 04-10-2024 03-30-2023 Chronic Digestive congenital anomalies (20 sources) Congenital hiatus hernia; Translations: [Congenital hiatus hernia] Onset: 04-15-2017 03-30-2023 Chronic Diseases of white blood cells (20 sources) Neutropenia; Translations: [Neutropenia, unspecified] Onset: 12-29-2016 12-29-2016 Chronic Disorders of lipid metabolism (20 sources) Hyperlipidemia; Translations: [Other and unspecified hyperlipidemia] Onset: 06-30-2021 Resolved: 04-10-2024 11-29-2019 Chronic Diverticulosis and diverticulitis (20 sources) Diverticulitis; Translations: [Diverticulitis of intestine, part unspecified, without perforation or abscess without bleeding] Onset: 09-25-2015 Resolved: 08-03-2023 03-30-2023 Chronic Esophageal disorders (20 sources) Gastro-esophageal reflux disease with esophagitis; Translations: [Gastro-esophageal reflux disease with esophagitis] Onset: 06-13-2016 Resolved: 08-03-2023 06-13-2016 Chronic Esophageal disorders (5 sources) Esophagitis; Translations: [Esophagitis, unspecified] Episodic Essential hypertension (20 sources) Benign essential hypertension; Translations: [Essential (primary) hypertension] Onset: 09-25-2015 Resolved: 04-10-2024 11-26-2019 Chronic Gastritis and duodenitis (5 sources) Gastritis; Translations: [Gastritis, unspecified, without bleeding] Episodic Glaucoma (20 sources) Bilateral glaucoma; Translations: [Unspecified glaucoma] Onset: 03-30-2023 03-30-2023 Chronic Heart valve disorders (20 sources) Tricuspid valve disorder; 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, unspecified] Onset: 09-25-2015 03-30-2023 Chronic Malaise and fatigue (20 sources) Fatigue; Translations: [Chronic fatigue, unspecified] Onset: 10-26-2018 03-30-2023 Chronic Menopausal disorders (20 sources) Primary ovarian failure; Translations: [Other primary ovarian failure] Onset: 12-06-2017 Resolved: 08-03-2023 03-30-2023 Chronic Mood disorders (20 sources) Acute depression; Translations: [Major depressive disorder, single episode, unspecified] Onset: 05-19-2016 Resolved: 08-03-2023 03-30-2023 Chronic Nutritional deficiencies (20 sources) Vitamin D deficiency; Translations: [Vitamin D deficiency, unspecified] Onset: 05-31-2021 03-30-2023 Chronic Occlusion or stenosis of precerebral arteries (20 sources) Atherosclerosis of right carotid artery; Translations: [Occlusion and stenosis of right carotid artery] Onset: 07-26-2016 03-30-2023 Chronic Osteoarthritis (20 sources) Degenerative joint disease involving multiple joints; Translations: [Polyosteoarthritis, unspecified] Onset: 09-22-2003 Chronic Osteoporosis (20 sources) Osteoporosis; Translations: [Age-related osteoporosis without current pathological fracture] Onset: 09-25-2015 Resolved: 04-10-2024 08-03-2016 Chronic Other acquired deformities (20 sources) Kyphosis of thoracic spine; Translations: [Unspecified kyphosis, thoracic region] Onset: 03-30-2023 03-30-2023 Chronic Other aftercare (16 sources) Drug therapy finding; Translations: [Long-term (current) use of other medications] Episodic Other and ill-defined heart disease (20 sources) Cardiomegaly; Translations: [Cardiomegaly] Onset: 09-25-2015 04-09-2023 Chronic Other and unspecified benign neoplasm (5 sources) Tubular adenoma of colon; Translations: [Benign neoplasm of colon, unspecified] Episodic Other bone disease and musculoskeletal deformities (2 sources) Exostosis of right foot; Translations: [Other specified disorders of bone, ankle and foot] 07-14-2024 Episodic Other circulatory disease (20 sources) Cardiac implant in situ; Translations: [Presence of cardiac and vascular implant and graft, unspecified] Onset: 11-21-2017 03-30-2023 Chronic Other connective tissue disease (5 sources) Presence of right artificial shoulder joint; Translations: [Presence of right artificial shoulder joint] Chronic Other connective tissue disease (5 sources) Viral myalgia; Translations: [Myalgia] Episodic Other connective tissue disease (1 source) Pain in right foot; Translations: [PAIN IN RIGHT FOOT] Onset: 02-27-2023 Episodic Other connective tissue disease (3 sources) Rhabdomyolysis; Translations: [Rhabdomyolysis] 09-04-2021 Episodic Other connective tissue disease (15 sources) Spasm of cervical paraspinous muscle; Translations: [Other muscle spasm] 08-06-2024 Episodic Other ear and sense organ disorders (20 sources) Asymmetrical sensorineural hearing loss; Translations: [Sensorineural hearing loss, bilateral] Onset: 03-30-2023 03-30-2023 Chronic Other endocrine disorders (2 sources) Secondary hyperaldosteronism; 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] 09-24-2024 Chronic Other gastrointestinal disorders (20 sources) Irritable bowel syndrome with diarrhea; Translations: [Irritable bowel syndrome with diarrhea] Onset: 05-30-2019 03-30-2023 Chronic Other lower respiratory disease (5 sources) Acute exacerbation of chronic obstructive airways disease; Translations: [Other disorders of lung] Episodic Other lower respiratory disease (3 sources) Dyspnea; Translations: [Dyspnea, unspecified] 11-26-2019 Episodic Other nervous system disorders (20 sources) Chronic pain; Translations: [Other chronic pain] Onset: 09-25-2015 04-09-2023 Chronic Other nervous system disorders (1 source) Other chronic pain; Translations: [OTHER CHRONIC PAIN] Onset: 08-02-2022 Chronic Other nervous system disorders (20 sources) Carpal tunnel syndrome; Translations: [Carpal tunnel syndrome, unspecified upper limb] Onset: 09-22-2003 03-30-2023 Chronic Other nervous system disorders (20 sources) Difficulty walking; Translations: [Difficulty in walking, not elsewhere classified] Onset: 04-15-2017 03-30-2023 Chronic Other nervous system disorders (3 sources) Sensory polyneuropathy; Translations: [Other hereditary and idiopathic neuropathies] 08-01-2024 Chronic Other non-traumatic joint disorders (4 sources) Pain in right hip; Translations: [PAIN IN RIGHT HIP] Onset: 02-22-2023 Episodic Other non-traumatic joint disorders (1 source) Pain in right knee; Translations: [PAIN IN RIGHT KNEE] Onset: 02-27-2023 Episodic Other non-traumatic joint disorders (1 source) Pain in left knee Episodic Other nutritional; endocrine; and metabolic disorders (20 sources) Hypocalcemia; Translations: [Hypocalcemia] Onset: 05-31-2021 03-30-2023 Chronic Other nutritional; endocrine; and metabolic disorders (16 sources) Overweight in adulthood with body mass index of 25 or more but less than 30; Translations: [Overweight] Episodic Other upper respiratory disease (20 sources) Allergic rhinitis; Translations: [Other allergic rhinitis] Onset: 09-25-2015 Resolved: 08-03-2023 03-30-2023 Chronic Residual codes; unclassified (20 sources) Insomnia co-occurrent and due to medical condition; Translations: [Insomnia due to medical condition] Onset: 08-30-2023 08-30-2023 Chronic Residual codes; unclassified (3 sources) Insomnia; Translations: [Insomnia, unspecified] 09-14-2021 Episodic Residual codes; unclassified (4 sources) Localized edema; Translations: [Localized edema] Onset: 01-27-2025 01-27-2025 Episodic Rheumatoid arthritis and related disease (20 sources) Rheumatoid arthritis; Translations: [Rheumatoid arthritis, unspecified] Onset: 02-14-2014 Resolved: 08-03-2023 02-14-2014 Chronic Spondylosis; intervertebral disc disorders; other back problems (20 sources) Degeneration of lumbar intervertebral disc; Translations: [Other intervertebral disc degeneration, lumbar region] Onset: 09-25-2015 Resolved: 04-10-2024 Chronic Unclassified (4 sources) LOW BACK PAIN, UNSPECIFIED; Translations: [LOW BACK PAIN, UNSPECIFIED] Onset: 06-23-2022 Past or Other Problems Problem Classification Problem Date Documented Da te Episodic/Chronic Abdominal hernia (20 sources) Hiatal hernia; Translations: [Diaphragmatic hernia without obstruction or gangrene] Onset: 5 Resolved: 4 06-13-2016 Episodic Abdominal pain (20 sources) Generalized abdominal pain; Translations: [Generalized abdominal pain] Onset: 4 09-18-2024 Episodic Acute and unspecified renal failure (20 sources) Injury of kidney; Translations: [Acute kidney failure, unspecified] Onset: 4 Resolved: 4 09-04-2021 Episodic Cardiac dysrhythmias (20 sources) Sinus bradycardia; Translations: [Bradycardia, unspecified] Onset: 7 10-25-2021 Episodic Complication of device; implant or graft (20 sources) Arteriosclerosis of coronary artery bypass graft; Translations: [Atherosclerosis of coronary artery bypass graft(s), unspecified, with angina pectoris with documented spasm] Onset: 7 Resolved: 4 03-30-2023 Chronic Conditions associated with dizziness or vertigo (20 sources) Dizziness; Translations: [Dizziness and giddiness] Onset: 4 12-20-2021 Episodic Coronary atherosclerosis and other heart disease (2 sources) Presence of aortocoronary bypass graft; Translations: [Presence of aortocoronary bypass graft] Onset: 3 Episodic Deficiency and other anemia (20 sources) Anemia; Translations: [Anemia, unspecified] Onset: 7 03-30-2023 Episodic E Codes: Fall (20 sources) Fall; Translations: [Unspecified fall, initial encounter] Onset: 4 Resolved: 4 10-26-2021 Episodic Fluid and electrolyte disorders (20 sources) Hyponatremia; Translations: [Hypo-osmolality and hyponatremia] Onset: 4 11-30-2019 Episodic Fracture of upper limb (20 sources) Other fracture of shaft of right humerus, subsequent encounter for fracture with routine healing; Translations: [Closed fracture of humerus] Onset: 1 Resolved: 4 Episodic Immunizations and screening for infectious disease (20 sources) Anti-nuclear factor positive; Translations: [Other specified abnormal immunological findings in serum] Onset: 3 03-30-2023 Episodic Malaise and fatigue (20 sources) Fatigue; Translations: [Other malaise and fatigue] Onset: 3 Resolved: 3 08-03-2023 Episodic Mood disorders (20 sources) Mood disorders Onset: 3 Resolved: 4 08-03-2023 Other acquired deformities (20 sources) Spondylolisthesis; Translations: [Spondylolisthesis, site unspecified] Onset: 3 04-09-2023 Episodic Other acquired deformities (20 sources) Acquired spondylolisthesis; Translations: [Spondylolisthesis, site unspecified] Onset: 9 03-30-2023 Episodic Other aftercare (20 sources) Taking high risk medication; Translations: [Other intermodal truck driver (current) drug therapy] Onset: 3 10-27-2023 Episodic Other aftercare (2 sources) Other halfway (current) drug therapy; Translations: [Other halfway (current) drug therapy] Onset: 3 Episodic Other bone disease and musculoskeletal deformities (20 sources) Arrest of bone development AND/OR growth; Translations: [Other disorders of bone development and growth, unspecified site] Onset: 5 03-30-2023 Episodic Other bone disease and musculoskeletal deformities (1 source) Other specified disorders of bone density and structure, unspecified site; Translations: [OTH D/O BONE DEN STRUCT UNS SITE] Onset: 2 Episodic Other circulatory disease (20 sources) Orthostatic hypotension; Translations: [Orthostatic hypotension] Onset: 7 03-30-2023 Episodic Other connective tissue disease (1 source) Muscle wasting and atrophy, not elsewhere classified, unspecified site; Translations: [MUSCLE WASTING ATROPHY NEC UNS SITE] Onset: 2 Episodic Other connective tissue disease (20 sources) Adhesive capsulitis of right shoulder; Translations: [Adhesive capsulitis of right shoulder] Onset: 2 04-30-2012 Episodic Other connective tissue disease (20 sources) Unspecified rotator cuff tear or rupture of unspecified shoulder, not specified as traumatic; Translations: [Rotator cuff (capsule) sprain] Onset: 2 Resolved: 4 04-30-2012 Episodic Other connective tissue disease (20 sources) Muscle weakness; Translations: [Muscle weakness (generalized)] Onset: 7 03-30-2023 Episodic Other connective tissue disease (20 sources) Recurrent falls ; Translations: [Repeated falls] Onset: 1 03-30-2023 Episodic Other connective tissue disease (20 sources) Fibromyalgia; Translations: [Fibromyalgia] Onset: 3 04-09-2023 Episodic Other connective tissue disease (20 sources) Muscle pain; Translations: [Myalgia, unspecified site] Onset: 1 Resolved: 3 08-03-2023 Episodic Other connective tissue disease (2 sources) Shoulder girdle weakness; Translations: [Other symptoms and signs involving the musculoskeletal system] 06-26-2024 Episodic Other ear and sense organ disorders (20 sources) Sensorineural hearing loss, bilateral; Translations: [Sensorineural hearing loss, bilateral] Onset: 6 Resolved: 3 08-03-2023 Chronic Other gastrointestinal disorders (20 sources) Heartburn; Translations: [Heartburn] Onset: 4 10-09-2024 Episodic Other gastrointestinal disorders (6 sources) Diarrhea; Translations: [Diarrhea, unspecified] Onset: 4 02-14-2014 Episodic Other gastrointestinal disorders (20 sources) History of gastritis; Translations: [Personal history of other diseases of the digestive system] Onset: 1 03-30-2023 Episodic Other hematologic conditions (20 sources) ESR raised; Translations: [Elevated erythrocyte sedimentation rate] Onset: 1 09-26-2011 Episodic Other inflammatory condition of skin (20 sources) Perioral dermatitis; Translations: [Perioral dermatitis] Onset: 3 Resolved: 4 03-30-2023 Chronic Other injuries and conditions due to external causes (20 sources) At risk for falls ; Translations: [History of fall] Onset: 3 10-27-2023 Episodic Other injuries and conditions due to external causes (20 sources) Hypothermia; Translations: [Hypothermia, initial encounter] Onset: 4 Resolved: 4 09-04-2021 Episodic Other injuries and conditions due to external causes (20 sources) Fracture of bone; Translations: [Other injury of unspecified body region, initial encounter] Onset: 1 Resolved: 3 09-26-2011 Episodic Other injuries and conditions due to external causes (20 sources) H/O: vertebral fracture; Translations: [Personal history of (healed) traumatic fracture] Onset: 7 01-20-2017 Episodic Other injuries and conditions due to external causes (2 sources) History of falling; Translations: [History of falling] Onset: 3 Episodic Other lower respiratory disease (20 sources) Dyspnea on exertion; Translations: [Other forms of dyspnea] Onset: 8 03-30-2023 Episodic Other lower respiratory disease (20 sources) Disorder of lung; Translations: [Other disorders of lung] Onset: 6 Resolved: 4 03-30-2023 Episodic Other nervous system disorders (20 sources) Incoordination; Translations: [Other lack of coordination] Onset: 7 03-30-2023 Episodic Other nervous system disorders (20 sources) Skin sensation disturbance; Translations: [Unspecified disturbances of skin sensation] Onset: 3 05-22-2023 Episodic Other nervous system disorders (20 sources) Numbness and tingling sensation of skin; Translations: [Anesthesia of skin] Onset: 3 06-20-2023 Episodic Other nervous system disorders (20 sources) Abnormal gait; Translations: [Unspecified abnormalities of gait and mobility] Onset: 3 Resolved: 3 08-03-2023 Episodic Other non-traumatic joint disorders (18 sources) Pain in left shoulder; Translations: [Left shoulder pain] Onset: 4 Episodic Other non-traumatic joint disorders (3 sources) Chronic pain of left upper limb; Translations: [Pain in left shoulder] 07-06-2020 Episodic Other non-traumatic joint disorders (20 sources) Multiple joint pain; Translations: [Pain in unspecified joint] Onset: 4 02-14-2014 Episodic Other non-traumatic joint disorders (20 sources) Pain in right shoulder; Translations: [Pain in joint, shoulder region] Onset: 4 06-19-2014 Episodic Other non-traumatic joint disorders (20 sources) Trochanteric bursitis; Translations: [Pain in unspecified hip] Onset: 9 03-30-2023 Episodic Other non-traumatic joint disorders (20 sources) Pain of right wrist; Translations: [Pain in right wrist] Onset: 3 03-30-2023 Episodic Other skin disorders (2 sources) Mass of skin; Translations: [Localized swelling, mass and lump, unspecified] 07-09-2024 Episodic Other upper respiratory disease (20 sources) Congestion of nasal sinus; Translations: [Nasal congestion] Onset: 3 Resolved: 3 09-30-2013 Episodic Other upper respiratory infections (20 sources) Upper respiratory infection; Translations: [Acute upper respiratory infection, unspecified] Onset: 4 Resolved: 4 12-02-2019 Episodic Otitis media and related conditions (20 sources) Acute transudative otitis media; Translations: [Other acute nonsuppurative otitis media, right ear] Onset: 4 Resolved: 4 12-20-2021 Episodic Pathological fracture (20 sources) History of pathological fracture; Translations: [Personal history of (healed) other pathological fracture] Onset: 6 03-02-2016 Episodic Residual codes; unclassified (16 sources) H/O: anticoagulant therapy; Translations: [Personal history of other drug therapy] Resolved: 2 Episodic Residual codes; unclassified (6 sources) Other specified postprocedural states Onset: 1 Resolved: 2 Episodic Residual codes; unclassified (4 sources) Drug therapy status; Translations: [Personal history of other drug therapy] Onset: 5 08-03-2016 Episodic Residual codes; unclassified (20 sources) Personal history of other drug therapy; Translations: [Personal history of other drug therapy] Onset: 5 03-30-2023 Episodic Skull and face fractures (20 sources) Fracture of base of skull; Translations: [Fracture of base of skull, unspecified side, initial encounter for closed fracture] Onset: 4 Resolved: 4 09-04-2021 Episodic Spondylosis; intervertebral disc disorders; other back problems (20 sources) Lumbosacral neuritis; Translations: [Radiculopathy, lumbosacral region] Onset: 4 Resolved: 4 06-19-2014 Episodic Sprains and strains (20 sources) Strain of unspecified muscle, fascia and tendon at shoulder and upper arm level, left arm, initial encounter; Translations: [Strain of unspecified muscle, fascia and tendon at shoulder and upper arm level, left arm, subsequent encounter] Onset: 2 Resolved: 4 Episodic Syncope (20 sources) Vasovagal symptom; Translations: [Syncope and collapse] Onset: 4 Resolved: 4 10-25-2021 Episodic Unclassified (16 sources) Never smoked tobacco; Translations: [Never a smoker] Unclassified (1 source) LOW BACK PAIN, UNSPECIFIED; Translations: [LOW BACK PAIN, UNSPECIFIED] Onset: 2 Unclassified (3 sources) Onset: 4 Resolved: 4 12-19-2023 Results Test Name Value Interpretation Reference Range Facility B-Type Natriuretic Peptideon 10-21-2024 Natriuretic peptide B (Bld) [Mass/Vol] 258.0 pg/mL High 5-100 [facility] Comment on above: Result Comment: PERF ORMED BY: [place] [id number] PATHOLOGIST SECURITY RISK ANALYST VARGAS HUTCHINS M.D. Performed By: #### M G, HS TROP, CMP, PT, TSH3, CK, CBC, BNP, PTT #### [address] Complete Blood Count Auto Di ffon 10-21-2024 Basophils (Bld) [#/Vol] 0.0 10*3/uL Normal 0.0-0.2 [facility] Comment on above: Result Comment: PERF ORMED BY: [place] [id number] PATHOLOGIST SECURITY RISK ANALYST VARGAS HUTCHINS M.D. Performed By: #### M G, HS TROP, CMP, PT, TSH3, CK, CBC, BNP, PTT #### [address] Basophils/100 WBC (Bld) 0.8 % Normal . [facility] Comment on above: Performed By: #### M G, HS TROP, CMP, PT, TSH3, CK, CBC, BNP, PTT #### [address] Eosinophils (Bld) [#/Vol] 0.1 10*3/uL Normal 0.0-0.45 [facility] Comment on above: Performed By: #### M G, HS TROP, CMP, PT, TSH3, CK, CBC, BNP, PTT #### [address] Eosinophils/100 WBC (Bld) 2.9 % Normal . [facility] Comment on above: Performed By: #### M G, HS TROP, CMP, PT, TSH3, CK, CBC, BNP, PTT #### [address] Erythrocyte distribution width (RBC) [Ratio] 13.4 % Normal 11.9-15.3 [facility] Comment on above: Performed By: #### M G, HS TROP, CMP, PT, TSH3, CK, CBC, BNP, PTT #### [address] Hematocrit (Bld) [Volume fraction] 37.2 % Normal 34.0-46.4 [facility] Comment on above: Performed By: #### M G, HS TROP, CMP, PT, TSH3, CK, CBC, BNP, PTT #### [address] Hemoglobin (Bld) [Mass/Vol] 12.7 g/dL Normal 11.8-15.4 [facility] Comment on above: Performed By: #### M G, HS TROP, CMP, PT, TSH3, CK, CBC, BNP, PTT #### [address] Lymphocytes (Bld) [#/Vol] 1.3 10*3/uL Normal 1.00-4.8 [facility] Comment on above: Performed By: #### M G, HS TROP, CMP, PT, TSH3, CK, CBC, BNP, PTT #### [address] Lymphocytes/100 WBC (Bld) 28.1 % Normal . [facility] Comment on above: Performed By: #### M G, HS TROP, CMP, PT, TSH3, CK, CBC, BNP, PTT #### [address] MCH (RBC) [Entitic mass] 33.0 pg Normal 24.7-34.3 [facility] Comment on above: Performed By: #### M G, HS TROP, CMP, PT, TSH3, CK, CBC, BNP, PTT #### [address] MCV (RBC) [Entitic vol] 96.3 fL Normal 80-100 [facility] Comment on above: Performed By: #### M G, HS TROP, CMP, PT, TSH3, CK, CBC, BNP, PTT #### [address] Mean Corpuscular HGB Conc 34.2 g/dL Normal 32.0-35.0 [facility] Comment on above: Performed By: #### M G, HS TROP, CMP, PT, TSH3, CK, CBC, BNP, PTT #### [address] Monocytes (Bld) [#/Vol] 0.4 10*3/uL Normal 0.0-0.8 [facility] Comment on above: Performed By: #### M G, HS TROP, CMP, PT, TSH3, CK, CBC, BNP, PTT #### [address] Monocytes/100 WBC (Bld) 20.23 % High 0.00-20.00 [facility] Comment on above: Result Comment: For adults in ED, MDW > 20.0 may be associated with a higher risk of sepsis during the first 12 hrs of hospital admission Performed By: #### M G, HS TROP, CMP, PT, TSH3, CK, CBC, BNP, PTT #### [address] Monocytes/100 WBC (Bld) 8.6 % Normal . [facility] Comment on above: Performed By: #### M G, HS TROP, CMP, PT, TSH3, CK, CBC, BNP, PTT #### [address] Neutrophils (Bld) [#/Vol] 2.8 10*3/uL Normal 1.8-7.7 [facility] Comment on above: Performed By: #### M G, HS TROP, CMP, PT, TSH3, CK, CBC, BNP, PTT #### [address] Neutrophils/100 WBC (Bld) 59.6 % Normal . [facility] Comment on above: Performed By: #### M G, HS TROP, CMP, PT, TSH3, CK, CBC, BNP, PTT #### [address] NRBC% 0.1 /100{WBC} Normal 0-0.5 [facility] Comment on above: Performed By: #### M G, HS TROP, CMP, PT, TSH3, CK, CBC, BNP, PTT #### [address] Platelet mean volume (Bld) [Entitic vol] 7.5 fL Normal 6.3-10.7 [facility] Comment on above: Performed By: #### M G, HS TROP, CMP, PT, TSH3, CK, CBC, BNP, PTT #### [facility] [address] Platelets (Bld) [#/Vol] 221 10*3/uL Normal 150-450 [facility] Comment on above: Performed By: #### M G, HS TROP, CMP, PT, TSH3, CK, CBC, BNP, PTT #### [address] RBC (Bld) [#/Vol] 3.86 10*6/uL Normal 3.60-5.00 [facility] Comment on above: Performed By: #### M G, HS TROP, CMP, PT, TSH3, CK, CBC, BNP, PTT #### [address] WBC (Bld) [#/Vol] 4.7 10*3/uL Normal 3.8-11.6 [facility] Comment on above: Performed By: #### M G, HS TROP, CMP, PT, TSH3, CK, CBC, BNP, PTT #### [address] Comprehensive Metabolic Pane tess 10-21-2024 Albumin [Mass/Vol] 4.1 g/dL Normal 3.5-5.7 [facility] Comment on above: Performed By: #### M G, HS TROP, CMP, PT, TSH3, CK, CBC, BNP, PTT ####[address] Albumin/Globulin [Mass ratio] 1.4 {ratio} Normal [facility] Comment on above: Performed By: #### M G, HS TROP, CMP, PT, TSH3, CK, CBC, BNP, PTT ####[address] ALP [Catalytic activity/Vol] 64 U/L Normal 34-104 [facility] Comment on above: Performed By: #### M G, HS TROP, CMP, PT, TSH3, CK, CBC, BNP, PTT ####[address] ALT [Catalytic activity/Vol] 16 U/L Normal 7-52 [facility] Comment on above: Performed By: #### M G, HS TROP, CMP, PT, TSH3, CK, CBC, BNP, PTT ####[address] Anion gap [Moles/Vol] 12.0 mmol/L Normal 6.0-15.0 [facility] Comment on above: Performed By: #### M G, HS TROP, CMP, PT, TSH3, CK, CBC, BNP, PTT ####[address] AST [Catalytic activity/Vol] 31 U/L Normal 13-39 [facility] Comment on above: Performed By: #### M G, HS TROP, CMP, PT, TSH3, CK, CBC, BNP, PTT ####[address] Bilirubin [Mass/Vol] 0.6 mg/dL Normal 0.3-1.0 [facility] Comment on above: Performed By: #### M G, HS TROP, CMP, PT, TSH3, CK, CBC, BNP, PTT ####[address] Calcium [Mass/Vol] 9.2 mg/dL Normal 8.6-10.3 [facility] Comment on above: Performed By: #### M G, HS TROP, CMP, PT, TSH3, CK, CBC, BNP, PTT ####[address] Chloride [Moles/Vol] 98 mmol/L Normal 98-107 [facility] Comment on above: Performed By: #### M G, HS TROP, CMP, PT, TSH3, CK, CBC, BNP, PTT ####[address] CO2 [Moles/Vol] 30.8 mmol/L Normal 21.0-31.0 [facility] Comment on above: Performed By: #### M G, HS TROP, CMP, PT, TSH3, CK, CBC, BNP, PTT ####[address] Creatinine [Mass/Vol] 0.77 mg/dL Normal 0.60-1.20 [facility] Comment on above: Performed By: #### M G, HS TROP, CMP, PT, TSH3, CK, CBC, BNP, PTT ####[address] Creatinine Clr Calc Pharmacy 54.62 Normal [facility] Comment on above: Performed By: #### M G, HS TROP, CMP, PT, TSH3, CK, CBC, BNP, PTT ####[address] GFR/1.73 sq M.predicted MDRD (S/P/Bld) [Vol rate/Area] mL/min/{1.73_m2} Normal [facility] Comment on above: Performed By: #### M G, HS TROP, CMP, PT, TSH3, CK, CBC, BNP, PTT ####[address] Globulin (S) [Mass/Vol] 2.9 g/dL Normal [facility] Comment on above: Performed By: #### M G, HS TROP, CMP, PT, TSH3, CK, CBC, BNP, PTT ####[address] Glucose [Mass/Vol] 97 mg/dL Normal 70-100 [facility] Comment on above: Result Comment: [place] Glucose Reference Range is dependent on time and content of last meal. Glucose of more than 200 mg/dL in a nonstressed, ambulatory subject supports the diagnosis of Diabetes Mellitus. ADA recommended reference range Performed By: #### M G, HS TROP, CMP, PT, TSH3, CK, CBC, BNP, PTT ####[address] Potassium [Moles/Vol] 3.8 mmol/L Normal 3.5-5.1 [facility] Comment on above: Performed By: #### M G, HS TROP, CMP, PT, TSH3, CK, CBC, BNP, PTT ####[address] Protein [Mass/Vol] 7.0 g/dL Normal 6.4-8.9 [facility] Comment on above: Performed By: #### M G, HS TROP, CMP, PT, TSH3, CK, CBC, BNP, PTT ####[address] Sodium [Moles/Vol] 137 mmol/L Normal 136-145 [facility] Comment on above: Performed By: #### M G, HS TROP, CMP, PT, TSH3, CK, CBC, BNP, PTT ####[place] [id number] [address] Urea nitrogen [Mass/Vol] 18 mg/dL Normal 7-25 [facility] Comment on above: Performed By: #### M G, HS TROP, CMP, PT, TSH3, CK, CBC, BNP, PTT ####[place] [id number] [address] Creatine Kinaseon 10-21-2024 CK [Catalytic activity/Vol] 61 U/L Normal 30-223 [facility] Comment on above: Performed By: #### M G, HS TROP, CMP, PT, TSH3, CK, CBC, BNP, PTT #### [facility] [address] ECG 12 lead ECGon 10-21-2024 ECG 12 lead ECG [facility] [address] [place] [address] Electrocardiograph Report Signed Patient: Sanaz Alvarez MR#: [id number] 6 : 1945 Acct:[id number] Age/Sex: 79 / F ADM Date: 10/21/24 Loc: ER Room: Type: [facility] ER Attending Dr: Ordering Provider: Kory Njaera DO Date of Service: 10/21/24 ECG/ECG 12 lead ECG: Arrhythmia/Palpitation s Copies to: Test Reason : Blood Pressure : 137/101 mmHG Vent. Rate : 52 BPM Atrial Rate : 52 BPM P-R Int : 166 ms QRS Dur : 94 ms QT Int : 462 ms P-R-T Axes : 71 -39 6 degrees QTcB Int : 429 ms Sinus bradycardia Left axis deviation Confirmed by Kory NAJERA DO ([id number]) on 10/21/2024 7:48:59 PM Referred By: Electronically Signed By: Kory NAJERA DO Transcribed By: MUS Signed By Kory Najera DO 1 12/22/231948 Normal [facility] Magnesiumon 10-21-2024 Magnesium [Mass/Vol] 2.1 mg/dL Normal 1.9-2.7 [facility] Comment on above: Performed By: #### M G, HS TROP, CMP, PT, TSH3, CK, CBC, BNP, PTT ####[facility] [address] [place] [address] [facility] Partial Thromboplastin Timeo n 10-21-2024 aPTT Coag (Bld) [Time] 27.4 s Normal 25.1-36.5 [facility] Comment on above: Result Comment: A he matocrit value greater than 55% may lead to inaccurate results in coagulation testing. Patients having hematocrit values >55% require a special collection tube for coagulation studies. Please contact the laboratory at [phone] for redraw instructions. PERFORMED BY: [facility] [address] [place] [address] PATHOLOGIST SECURITY RISK ANALYST VARGAS HUTCHINS M.D. Performed By: #### M G, HS TROP, CMP, PT, TSH3, CK, CBC, BNP, PTT #### [facility] 1[address] [place] [address] [facility] Prothrombin Time INRon 10-21 INR Coag (PPP) [Relative time] 0.9 {INR} Normal [facility] Comment on above: Result Comment: INR Therapeutic Range A) Pre- and Peroperative OAT started two weeks before surgery. NOT HIP SURGERY: 1.5 - 2.5 HIP SURGERY: 2 - 3 B) Primary and secondary prevention of venous THROMBOSIS: 2 - 3 C) Active venous thrombosis, pulmonary embolism and prevention of recurrent venous thrombosis: 2 - 3 D) Prevention of arterial thromboembolism including patients with mechanical heart valves: 3 - 4.5 Performed By: #### M G, HS TROP, CMP, PT, TSH3, CK, CBC, BNP, PTT #### [facility] [address] PT Coag (PPP) [Time] 10.8 s Normal 9.0-12.9 [facility] Comment on above: Result Comment: A he matocrit value greater than 55% may lead to inaccurate results in coagulation testing. Patients having hematocrit values >55% require a special collection tube for coagulation studies. Please contact the laboratory at [phone] for redraw instructions. Performed By: #### M G, HS TROP, CMP, PT, TSH3, CK, CBC, BNP, PTT #### [address] Thyroid Stimulating Hormoneo n 10-21-2024 TSH Qn 1.17 m[IU]/L Normal 0.45-5.33 [facility] Comment on above: Result Comment: PERF ORMED BY: [place] [address] PATHOLOGIST SECURITY RISK ANALYST VARGAS HUTCHINS M.D. Performed By: #### M G, HS TROP, CMP, PT, TSH3, CK, CBC, BNP, PTT ####[facility] [place] [address] Troponin I High Sensitivityo n 10-21-2024 Troponin I High Sensitivity 10.8 pg/mL Normal 0.0-15.0 [facility] Comment on above: Result Comment: PERF ORMED BY: [place] [address] PATHOLOGIST SECURITY RISK ANALYST VARGAS HUTCHINS M.D. Performed By: #### M G, HS TROP, CMP, PT, TSH3, CK, CBC, BNP, PTT #### [address] Urinalysison 10-21-2024 Appearance (U) Clear Normal Clear [facility] Comment on above: Order Comment: Name Collection Type:: Clean-Voided Midstream Performed By: #### U A ####[address] [address] [facility] Bilirubin,Urine Negative Normal Negative [facility] Comment on above: Order Comment: Name Collection Type:: Clean-Voided Midstream Performed By: #### U A ####[address] [address] [facility] Color (U) Colorless Normal Yellow [facility] Comment on above: Order Comment: Name Collection Type:: Clean-Voided Midstream Performed By: #### U A ####[address] [address] [facility] Glucose Ql (U) Normal Normal Normal [facility] Comment on above: Order Comment: Name Collection Type:: Clean-Voided Midstream Performed By: #### U A ####[address] [address] [facility] Ketones Ql (U) Negative Normal Negative [facility] Comment on above: Order Comment: Name Collection Type:: Clean-Voided Midstream Performed By: #### U A ####[address] [address] [facility] Leukocyte esterase Test strip Ql (U) Negative Normal Negative [facility] Comment on above: Order Comment: Name Collection Type:: Clean-Voided Midstream Performed By: #### U A ####[address] [address] [facility] Nitrite,Urine Negative Normal Negative [facility] Comment on above: Order Comment: Name Collection Type:: Clean-Voided Midstream Performed By: #### U A ####[address] [address] [facility] Occult Blood,Urine Negative Normal Negative [facility] Comment on above: Order Comment: Name Collection Type:: Clean-Voided Midstream Result Comment: PERF ORMED BY: [facility] [address] [place] [address] PATHOLOGIST SECURITY RISK ANALYST VARGAS HUTCHINS M.D. Performed By: #### U A ####[address] [address] [facility] pH (U) 6.0 [pH] Normal 5.0-9.0 [facility] Comment on above: Order Comment: Name Collection Type:: Clean-Voided Midstream Performed By: #### U A ####[address] [address] [facility] Protein,Urine Negative Normal Negative [facility] Comment on above: Order Comment: Name Collection Type:: Clean-Voided Midstream Performed By: #### U A ####[place] [id number] [facility] Specificy Brandt,Urine 1.007 Normal 1.001-1.030 [facility] Comment on above: Order Comment: Name Collection Type:: Clean-Voided Midstream Performed By: #### U A ####[place] [id number] [facility] Urobilinogen,Urine Normal Normal Normal [facility] Comment on above: Order Comment: Name Collection Type:: Clean-Voided Midstream Performed By: #### U A ####[place] [id number] [facility] Appearance (U) Clear Normal Clear [facility] Comment on above: Order Comment: Name Collection Type:: Clean-Voided Midstream Performed By: #### U A ####[address] [address] [facility] Bilirubin,Urine Negative Normal Negative [facility] Comment on above: Order Comment: Name Collection Type:: Clean-Voided Midstream Performed By: #### U A ####[address] [address] [facility] Color (U) Colorless Normal Yellow [facility] Comment on above: Order Comment: Name Collection Type:: Clean-Voided Midstream Performed By: #### U A ####[address] [address] [facility] Glucose Ql (U) Normal Normal Normal [facility] Comment on above: Order Comment: Name Collection Type:: Clean-Voided Midstream Performed By: #### U A ####[address] [address] [facility] Ketones Ql (U) Negative Normal Negative [facility] Comment on above: Order Comment: Name Collection Type:: Clean-Voided Midstream Performed By: #### U A ####[address] [address] [facility] Leukocyte esterase Test strip Ql (U) Negative Normal Negative [facility] Comment on above: Order Comment: Name Collection Type:: Clean-Voided Midstream Performed By: #### U A ####[address] [address] [facility] Nitrite,Urine Negative Normal Negative [facility] Comment on above: Order Comment: Name Collection Type:: Clean-Voided Midstream Performed By: #### U A ####[address] [address] [facility] Occult Blood,Urine Negative Normal Negative [facility] Comment on above: Order Comment: Name Collection Type:: Clean-Voided Midstream Result Comment: PERF ORMED BY: [facility] [address] [place] [id number] PATHOLOGIST SECURITY RISK ANALYST VARGAS HUTCHINS M.D. Performed By: #### U A ####[address] [address] [facility] pH (U) 6.5 [pH] Normal 5.0-9.0 [facility] Comment on above: Order Comment: Name Collection Type:: Clean-Voided Midstream Performed By: #### U A ####[address] [address] [facility] Protein,Urine Negative Normal Negative [facility] Comment on above: Order Comment: Name Collection Type:: Clean-Voided Midstream Performed By: #### U A ####[address] [address] [facility] Specificy Brandt,Urine 1.006 Normal 1.001-1.030 [facility] Comment on above: Order Comment: Name Collection Type:: Clean-Voided Midstream Performed By: #### U A ####[facility] Urobilinogen,Urine Normal Normal Normal [facility] Comment on above: Order Comment: Name Collection Type:: Clean-Voided Midstream Performed By: #### U A ####[facility] XR chest 2V*on 10-21-2024 XR chest 2V* [facility] [address] [place] [address] XRay Report Signed Patient: Sanaz Alvarez MR#: [id number] 6 : 1945 Acct:[id number] Age/Sex: 79 / F ADM Date: 10/21/24 Loc: ER Room: Type: [facility] ER Attending Dr: Copies to: Kory Najera DO Ordering Provider: Kory Najera DO Date of Service: 10/21/24 XR/XR chest 2V*: Arrhythmia/Palpitation s PA AND LATERAL CHEST: CLINICAL HISTORY: Chest pain, shortness of breath, nausea and fever COMPARISON: 10/25/2021 Median sternotomy wires are present. There is minor atelectasis or scarring. There is no developing consolidation, effusion or pneumothorax. The cardiac, hilar and mediastinal silhouettes are similar. There is no vascular congestion. The visualized bony structures are osteopenic. There is scoliotic curvature and endplate spurring. There is a shoulder prosthesis on the right and degenerative change on the left. XR/XR chest 2V* IMPRESSION: NO ACUTE CARDIOPULMONARY ABNORMALITY. Impression dictated by: Dea Rice M.D.10/21/2024 7:27 PM Dictation Location: [place] [address] Transcribed By: LIBRADO 10/21/241926 Dictated By: Dea Rice MD 10/21/241925 Signed By: 10/21/241926 Normal [facility] CT abdomen pelvis wo conon 1 11-27-2023 CT abdomen pelvis wo con [facility] [address] [place] [address] CT Scan Report Signed Patient: Sanaz Alvarez MR#: [id number] 6 : 1945 Acct:[id number] Age/Sex: 79 / F ADM Date: 09/27/24 Loc: CT Room: Type: [facility] Attending Dr: Aiden Brunson DO Copies to: Aiden Brunson DO Ordering Provider: Aiden Brunson DO Date of Service: 09/27/24 CT/CT abdomen pelvis wo con: ventral hernia ; abdominal pain K43.[address] ABDOMEN AND PELVIS WITHOUT INTRAVENOUS CONTRAST: CLINICAL HISTORY: Ventral hernia. Abdominal pain. COMPARISON: CT abdomen and pelvis 09/04/2021 TECHNIQUE: Spiral images were obtained through the abdomen and pelvis without intravenous contrast. This CT exam was performed using one or more following dose reduction techniques: Automated exposure control, adjustment of the mA and/or kV according to patient size, or use of iterative reconstruction technique. FINDINGS: Lung Bases: [Bibasilar scarring.] Organs:Suboptimal evaluation due to lack of IV contrast. Liver gallbladder spleen pancreas and adrenal glands appear unremarkable. Kidneys demonstrate no stone or hydronephrosis. Abdominal aorta demonstrate mild calcification without aneurysm.[ GI: Stomach is grossly unremarkable. Small bowel appears nondilated. Appendix is normal. Colonic diverticulosis.[ Pelvis:[Urinary bladder is grossly unremarkable. Uterus is grossly unremarkable. No adnexal mass.] Peritoneum/Retroperito neum:No free air or free fluid or lymphadenopathy.[ Abd wall/Bones:Abdominal wall demonstrate no acute findings. Osseous structures demonstrate degenerative changes. Left hip hardware. No CT evidence of ventral hernia is noted.[ CT/CT abdomen pelvis wo con IMPRESSION: No acute findings. No CT evidence of ventral hernia is noted. Colonic diverticulosis. Impression dictated by: Shamir Delarosa Jr., D.O.09/27/2024 6:52 PM Dictation Location: [facility]18 Transcribed By: [facility] 09/27/241851 Dictated By: Shamir Delarosa Jr, DO 09/27/241849 Signed By: 11/22/24 1852 Normal [facility] ALL BASIC METABOLIC PANELon 07-04-2024 Anion gap [Moles/Vol] 12.0 mmol/L [facility] Calcium [Mass/Vol] 9.0 mg/dL 8.5 - 10. 1 mg/dL [facility] Chloride [Moles/Vol] 101 mmol/L 98 - 107 mmol/L [facility] CO2 [Moles/Vol] 29.1 mmol/L 21.0 - 32.0 mmol/L [facility] Creatinine [Mass/Vol] 0.89 mg/dL 0.55 - 1.02 mg/dL [facility] GFR/1.73 sq M.predicted CKD-EPI (S/P/Bld) [Vol rate/Area] >60 60 - PINF [facility] Glucose [Mass/Vol] 97 mg/dL 74 - 106 mg/dL [facility] Potassium [Moles/Vol] 4.1 mmol/L 3.5 - 5.1 mmol/L [facility] Sodium [Moles/Vol] 138 mmol/L 136 - 145 mmol/L [facility] TBH EGFR-NON AF CHINESE >60 60 - PINF [facility] Urea nitrogen [Mass/Vol] 17.0 mg/dL 7.0 - 18.0 mg/dL [facility] Urea nitrogen/Creatinine [Mass ratio] 19.1 mg/mg [facility] 12 Leadon 07-01-2024 ECG reveals sinus bradycardia, voltage cardia for LVH with repolarization abnormalities [facility] Work Phone: XR shoulder RT min 2V*on XR shoulder RT min 2V* [facility] [address] [place] [address] XRay Report Signed Patient: Sanaz Alvarez MR#: [id number] 6 : 1945 Acct:[id number] Age/Sex: 78 / F ADM Date: 03/11/24 Loc: [facility] Room: Type: [facility] Attending Dr: Eladio Douglass DO Copies to: Eladio Douglass DO Ordering Provider: Eladio Douglass DO Date of Service: 03/11/24 XR/XR shoulder [...] Dea Rice M.D.03/11/2024 5:55 PM Dictation Location: [place] [address] Transcribed By: [facility] 03/11/24 1755 Dictated By: Dea Rice MD 03/11/241751 Signed By: 03/11/24 1755 Normal [facility] US CAROTID ARTERY DUPLE X BILATERALon 01-16-2024 [facility] US CAROTID ARTERY DUPLEX BILATERAL [address], [address] [place] [address] Vascular Lab Report [facility] US CAROTID ARTERY DUPLEX BILATERAL Patient Name: SANAZ Almeida Physician: [id number] Tawnya Lomeli MD, [facility] Study Date: 01/16/2024 Ordering Provider: [id number] TAWNYA LOMELI MRN/PID: [id number] Fellow: Technologist: Farheen Bundy RD, T Date of /Age: 11 1945 / 78 years Technologist 2: Gender: F Admission Status: Outpatient Location Performed: [facility] Diagnosis/ICD: Dizziness and giddiness-R42 Indication: CAD, CABG-2017, Paroxysmal Atrial Fibrillation, Overweight, PVC's, HTN, Hyperlipidemia CPT Codes: 40737 Cerebrovascular Carotid Duplex scan complete CONCLUSIONS: Right [...] cm/s Right Left ICA/CCA Ratio 1.1 1.2 [id number] Tawnya Lomeli MD, FACC [facility] Office Visit (Cardiology)on 06-30-2023 Follow-up visit Diagnoses/Problems Assessed Coronary artery disease involving solomon coronary artery of solomon heart without angina pectoris (414.01) (I25.10) HLD (hyperlipidemia) (272.4) (E78.5) High risk medication use (V58.69) (Z79.899) Paroxysmal atrial fibrillation (427.31) (I48.0) Overweight with body mass index (BMI) of 28 to 28.9 in adult (278.02,V85.24) (E66.3,Z68.28) Never a smoker PVC (premature ventricular contraction) (427.69) (I49.3) History of coronary artery bypass graft (V45.81) (Z95.1) Orders Coronary artery disease involving solomon coronary artery of solomon heart without angina pectoris Renew: Aspirin 81 MG Oral Tablet Delayed Release; TAKE 1 TABLET DAILY AST; Status:Active - Retrospective Authorization; Requested for:[id number]; Coronary artery disease involving solomon coronary artery of solomon heart without angina pectoris, High risk medication use, HLD (hyperlipidemia) Lipid Panel; Status:Active - Retrospective Authorization; Requested for:30Jun2023; ALT - Alanine Aminotransferase, Serum; Status:Active - Retrospective Authorization; Requested for:30Jun2023; Basic Metabolic Panel; Status:Active - Retrospective Authorization; Requested for:30Jun2023; Complete Blood Count; Status:Active - Retrospective Authorization; Requested for:30Jun2023; HLD (hyperlipidemia) Renew: Atorvastatin Calcium 40 MG [...] Lead; Status:Active - Perform Order,Retrospective Authorization; Requested for:[id number]; SocHx: Never a smoker Tobacco Use Screening; [...] time of your visit. Chief Complaint SANAZ ALVAREZ is being seen for a 9 month [...] with previous coronary artery bypass surgery in [place]. We do not have details of the [...] Daily Magnesium (more content not included)... Normal [employer] Tobacco Screening.on 023 Fall risk assessment a) No falls within the last year [facility] 250 DO Work Phone: Tobacco use status [facility] b) No [facility] 250 DO Work Phone: Tobacco Screening. Yes [facility] 250 DO Work Phone: CT Abdomen/Pelvis w/ Contras ton 01-05-2023 CT [...] by Bernabe Figueroa on 01/05/2023 1635 Normal [facility] [place] [facility] Cardiovasc Arrhythmia Result son 09-22-2022 Cardiovasc Arrhythmia Results Reason For Visit Reason for Visit: Holter Monitor: SANAZ is here for the application of a 24 hour Holter monitor. Ordering Physician: Dr. Tawnya Lomeli MD Diagnosis: afib, pvc [facility] equipment agreement signed. SANAZ understands monitor is to be returned on: 09/23/2022 Monitor number [id number] applied. Holter monitor returned and downloaded. Holter monitor printed and placed on Dr. Tawnya Lomeli MD desk to dictate. Procedure 1?the rhythm [...] ventricular contraction) (427.69) (I49.3) Future Appointments Date/TimeProviderSpeci [facility]tySun[facility] 03/16/2023 10:40 Tawn[address], [id number] [facility] 2 [place] 250 DO Signatures Electronically signed by : Tawnya Lomeli MD; Sep 30 2022 2:33PM EST (Author) Normal [employer] Office Visit (Cardiology)on 2022 Follow-up visit Diagnoses/Problems Assessed Atrial fibrillation (427.31) (I48.91) High risk medication use (V58.69) (Z79.899) Coronary artery disease involving solomon coronary artery of solomon heart without angina pectoris (414.01) (I25.10) History [...] No need for lasix Chief Complaint SANAZ ALVAREZ is being seen for a 6 month [...] with previous coronary artery bypass surgery in [place]. We do not have details of the [...] TabletTAKE 1 TABLET BY MOUTH ONCE DAILY [place] 3 1000 MG Oral CapsuleTAKE 1 CAPSULE Daily TABSTake 1 tablet daily Restasis 0.05 % Ophthalmic Emulsion Sotalol HCl - 80 MG Oral TabletTAKE 1/2 TBALET DAILY Trelegy Ellipta 100-62.5-25 MCG/ACT Inhalation Aerosol Powder Breath Activated Trintellix 10 MG Oral TabletTake 1 tablet daily Turmeric Curcum (more content not included)... [facility] 0[facility] Fall risk assessment b) One or more falls in the last year [facility] ZEFROtero 250 DO Work Phone: Tobacco use status [facility] b) No [facility] Work [facility]: [facility] Screening. Yes [facility] 250 DO Work Phone: XR LSPINE MIN [...] by: ANIKET HERBERT Date: 2022-06-22 13:15 Normal [facility] Tobacco Screening.on 022 Adult depression screening assessment Yes [facility] ZEFRGarrett 250 DO Work Phone: Fall risk assessment b) One or more falls in the last year [facility] Work Phone: Tobacco use status [facility] b) No [facility] 250 DO Work Phone: Tobacco Screening. 2-More than half the days [facility] Work Phone: Tobacco Screening. 3-Nearly every day [facility] 250 DO Work Phone: Tobacco Screening. 0-Not at all -[facility] 250 DO Work Phone: Tobacco Screening. Very Difficult -[facility] 250 DO Work Phone: XR humerus RT*on 09-27-2021 XR humerus RT* [facility] Jajah Other XR humerus RT* [place] [facility] Jajah Other XR humerus RT* [address] [place] [address] Jajah Other XR humerus RT* [place] [address] No rt Jajah Other XR humerus RT* XRay Report [employer] Other XR humerus RT* Signed [email or web address] Other XR humerus RT* Patient: Sanaz Alvarez MR#: [id number] [place] Jajah Other XR humerus RT* 6 [email or web address] Other XR humerus RT* : 1945 Acct:[id number] [employer] Other XR humerus RT* Age/Sex: 76 / F ADM Date: 09/27/21 [employer] Other XR humerus RT* [place] [facility] [place]: Type : [facility] [employer] Other XR humerus RT* Attending Dr: Eladio Douglass DO [employer] Other XR humerus RT* Ordering Provider: Eladio Douglass DO [employer] Other XR humerus RT* Date of Service: 09/27/21 [employer] Other XR humerus RT* XR/XR humerus RT*: Other specified postprocedural states [employer] Other XR humerus RT* Copies to: Eladio Douglass, [employer] Other XR humerus RT* Right humerus 09/27/2021. [employer] Other XR humerus RT* CLINICAL DATA: Follow-up right humerus fracture repair. [employer] Other XR humerus RT* FINDINGS: 2 views of the right humerus were obtained and are compared with a prior study 09/07/2021. [employer] Other XR humerus RT* There are postsurgic al changes related to internal fixation of a fracture of the mid shaft of the [employer] Other XR humerus RT* humerus with a plate and screws. The hardware appears intact and unchanged in position. Bony [employer] Other XR humerus RT* alignment appears stable. Skin hector remain present. There is evidence of prior right shoulder [employer] Other XR humerus RT* arthroplasty. [employer] Other XR humerus RT* XR/XR humerus RT* [employer] Other XR humerus RT* IMPRESSION: Stable postsurgical changes related to plate and screw fixation of a fracture of the mid [employer] Other XR humerus RT* shaft of the right humerus. [employer] Other XR humerus RT* Impression dictated by: Donavon Fisher Jr., M.D.09/27/2021 3:37 PM [employer] Other XR humerus RT* Dictation Location: [place] [address] [employer] Other XR humerus RT* Transcribed By: LIBRADO 09/27/21 [facility] [employer] Other XR humerus RT* Dictated By: Donavon Fisher Jr, MD 09/27/21 [facility] [employer] Other XR humerus RT* Signed By: [email or web address] Other XR humerus RT* 09/27/21 1537 [employer] Other Deanne 06-19-2021 MARVEL Telephone (JUAN JOSÉ) SANAZ ALVAREZ ([id number]) 1945 F Date Time Provider Department 06/19/21 ERROL BOURGEOIS During your visit today, we recorded the following information about you: Errol Bourgeois MD 06/19/2021 11:58 AM Signed Please Call patient if MyChart note not read to review results/released to My Chart if tests completed at [facility]: normal labs. Take over the counter vitamin D 1000?International Units daily with food. Happy to further review and discuss at follow up office visit. Continue rest of treatment plan per instructions at last office visit. Thank you. NOMS 05/31/21 normal calcium 9.4, vitamin D 86; 02/22/21 normal vitamin D 72, calcium 9.4; [place] BMD osteopenia 09/18/20 R fem neck 0.932g/cm2, [...] Status:Closed by JOSHUA GARCIA MA on 06/21/21 [facility] Deanne 02-26-2021 MARVEL Telephone (JUAN JOSÉ) SANAZ ALVAREZ ([id number]) 1945 F Date Time Provider Department 02/26/21 CHRISTELLE ERROL RHEULN During your visit today, we recorded the following information about you: Errol Bourgeois 02/26/2021 4:59 PM Signed Please Call patient if MyChart note not read to review results/released to My Chart if tests completed at [facility]: Received bone mineral density from 09/2020 showed osteopenia. normal labs. Continue over the counter vitamin D 2000?International Units daily with food. Recheck nonfasting labs in 3months.The orders have been placed.? Happy to further review and discuss at follow up office visit. Continue rest of treatment plan per instructions at last office visit. Thank you. 02/22/21 normal vitamin D 72, calcium 9.4; [place] BMD osteopenia 09/18/20 R fem neck 0.932g/cm2, tscore-0.8;R fem total 0.871g/cm2, tscore-1.1;L forema 0.561g/cm2, tscore-2.1; --- 08/24/20 normal vitamin D 67.8, calcium 9.3; Nancy Estrada Ma 02/27/2021 1:30 PM Signed Left a message for the pt to call the office back regarding the message below. Evie Valreo RN 03/01/2021 2:32 PM Signed Pt identified by name and Pt given message below Stated understanding Reminded 10-20 prolia injection Call transferred to lab scheduling to assist with appt scheduling Joshua Garcia MA 03/01/2021 2:33 PM Signed Lm regarding results and recommendations sent via [employer]. Irene Sapp 03/01/2021 2:50 PM Signed Patient would like to have orders for nonfasting labs sent to [facility] lab in [place]. Their fax number is [phone]. Please advise and contact patient when orders have been sent. Errol Christelle 03/01/2021 7:15 PM Signed Please send orders [...] vertebral fractures [Z87.8*01/20/2017 Encounter Status:Closed by EVIE VALERO RN on 03/01/21 Normal [facility] CNPN Telephone (JUAN JOSÉ) SANAZ ALVAREZ ([id number]) 1945 F Date Time Provider Department 02/26/21 ERROL BOURGEOIS During your visit today, we recorded the following information about you: Errol Bourgeois MD 02/26/2021 12:31 PM Signed Please Call patient if MyChart note not read to review results/released to My Chart if tests completed at [facility]: normal labs. 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 Was on prolia. Did well on prolia but stopped due to other health issues. S/p CABG 3vessel 2017. 08/2019 norvasc fluid retention. Changed cardiology to [facility], discontinued norvasc, treated IV diuresis 11/2019. Lost weight with diuresis, improved diet. Reports pain in hips, knees, neck, shoulders. Had back injection/saddle block due to R leg pain/numb last year. Report (more content not included)... Normal [facility] Calcium, Totalon 02-22-2021 Calcium [Mass/Vol] 9.4 mg/dL Normal 8.5-10.2 [facility] Comment on above: Performed By: #### C Chandu VITD #### [facility] [email or web address] [address] [place], [place] [address] Vitamin D 25 Hydroxyon 02-22 Vitamin D 25 Hydroxy 72.0 ng/mL Normal 31.0-80.0 [facility] Comment on above: Result Comment: Clas sification of 25 [place] Vitamin D status: Insufficiency/Moderate Deficiency: < or = 30 ng/mL Sufficiency/Optimal Levels: 31 to 80 ng/mL Toxicity: > 100 ng/mL Test performed by chemiluminescent immunoassay. Performed By: #### C A, VITD #### [facility] [email or web address] [address] [place], [place] [address] XR SHOULDER GENERAL 3V OR MO RE AP/TRUE AP/OTHER LTon 07-06-2020 [facility] ic [facility] CARDIAC STRESS/REST INJE CTIONon 03-10-2020 [facility] CARDIAC STRESS/REST INJECTION Patient Name: SANAZ ALVAREZ STUDY: MYOCARDIAL PERFUSION STRESS TEST WITH LEXISCAN Performing facility: [facility], [address] [place] [address], [address], [place] [address] [facility] Provider: Cristel Nolan RN, MUSEUM GUIDE PCP: Dr. Jimenez Supervising provider: Tawnya Lomeli MD, [facility] INDICATION: CAD; Fatigue HISTORY: Gender: F; Age: 74 y/o ; Height: 149.86 cm; Weight: 69.2985120 kg. High Cholesterol; CAD; Arrhythmias; Chest Pain; SOB; COPD; Fatigue; CABG Denies smoking. CABG on 2016. COMPARISON: No comparison. ACCESSION NUMBER(S): [id number]; [id number]; [id number] ORDERING CLINICIAN: CRISTEL NOLAN TECHNIQUE: ONE DAY [...] no evidence of attenuation artifact. IMPRESSION: Normal Lexiscan [facility] cardiac perfusion stress test. No evidence of ischemia or myocardial infarction by perfusion imaging. Normal left ventricular systolic function, ejection fraction 65%. No previous studies are available for comparison. Electronically signed by: TAWNYA LOMELI MD Normal [facility] CBCon 12-31-2019 Erythrocyte distribution width (RBC) [Ratio] 12.6 % Normal 11.5 - 14.5 [facility] Comment on above: Performed By: #### C BC #### [address] [address] Hematocrit (Bld) [Volume fraction] 36.1 % Normal 36.0 - 46.0 [facility] Comment on above: Performed By: #### C BC #### [address] [address] Hemoglobin (Bld) [Mass/Vol] 11.9 g/dL Low 12.0 - 16.0 [facility] Comment on above: Performed By: #### C BC #### [address] [address] MCHC (RBC) [Mass/Vol] 33.0 g/dL Normal 32.0 - 36.0 [facility] Comment on above: Performed By: #### C BC #### [address] [address] MCV (RBC) [Entitic vol] 98 fL Normal 80 - 100 [facility] Comment on above: Performed By: #### C BC #### [address] [address] Platelets (Bld) [#/Vol] 245 10*3/uL Normal 150 - 450 [facility] Comment on above: Performed By: #### C BC #### [address] [address] RBC (Bld) [#/Vol] 3.68 x10E12/L Low 4.00 - 5.20 [facility] Comment on above: Performed By: #### C BC #### [address] [address] WBC (Bld) [#/Vol] 5.4 10*3/uL Normal 4.4 - 11.3 [facility] Comment on above: Performed By: #### C #### [facility] [address] [facility] [place] [address] SPINAL PAIN BLOCKon 04-09-20 19 SPINAL PAIN BLOCK [facility] Department of Radiology [address] [place] [address] ======== Patient Name: SANAZ ALVAREZ : 1945 Sex: F Age: Race: White Pt. Location: Patient Status: D Ordered Date: 03/18/2019 2:55:00 PM Completed Date: 04/09/2019 04:03 PM Requesting Provider: JOSI REHMAN Attending Provider: JOSI REHMAN Report Copy To: AUSTIN TORRES Signs & Symptoms: M54.16 Radiculopathy, lumbar region I10 History: Ching Comments: , Referral to Dr. Mcdonald for [...] for for an epidural pain block. RT-R Rehabilitation Team Lead INFORMED CONSENT: Reason for procedure was discussed with the patient. The procedure expectations risks benefits options and alternatives were discussed. All the questions were answered. The patient understood that results cannot be guaranteed. The procedure is indicated and risks are acceptable. Consent was obtained. STERILIZATION: All elements of maximal sterile technique were used during the procedure. TIMEOUT: [place] protocol timeout verification performed. PROCEDURE: Estimated blood [...] injection. Electronically signed by:Tawnya Mcdonald. Transcribed by: [email or web address], User Resident: Electronically Signed by: TAWNYA MCDONALD @ 04/11/2019 06:04 PM Normal [facility] Comment on above: Order Comment: , Ref erral to Dr. Mcdonald for possible ESIs. , Referral to Dr. Mcdonald for possible ESIs. , , , Ordering Provider - JOSI REHMAN MD , FEMUR LEFT 2 [facility] 9 FEMUR LEFT [address] [facility] Department of Radiology [address] [place] [id number] ======== Patient Name: SANAZ ALVAREZ : 1945 Sex: F Age: Race: White Pt. Location: 84 Patient Status: O Ordered Date: 01/24/2019 9:00:00 AM Completed Date: 01/24/2019 09:03 AM Requesting Provider: JOSI REHMAN Attending Provider: JOSI REHMAN Report Copy To: AUSTIN TORRES Signs & Symptoms: M79.659 Pain in unspecified thigh I10 History: [place] Comments: , please x-ray whole femur , [...] chondromalacia Electronically signed by:Yanet Bartlett. Transcribed by: [email or web address], User Resident: Electronically Signed by: YANET BARTLETT @ 01/24/2019 12:39 PM [place] [facility] Comment on above: Order Comment: , ple ase x-ray whole femur , Views (X-RAY, FEMUR): Radiologic Protocol , Weight Bearing?: Y , please x-ray whole femur , Views (X-RAY, FEMUR): Radiologic Protocol , Weight Bearing?: Y , , , Ordering Provider - JOSI REHMAN MD , LUMBAR SPINE 2 OR 3 VWSon LUMBAR SPINE 2 OR [address] [facility] Department of Radiology [address] [place] [id number] ======== Patient Name: SANAZ ALVAREZ : 1945 Sex: F Age: Race: White Pt. Location: 84 Patient Status: O Ordered Date: 01/24/2019 10:05:00 AM Completed Date: 01/24/2019 10:10 AM Requesting Provider: JOSI REHMAN Attending Provider: JOSI REHMAN Report Copy To: AUSTIN TORRES Signs & Symptoms: M54.16 Radiculopathy, lumbar region I10 History: Ching Comments: , , , Ordering Provider - [...] findings. Electronically signed by:Tawnya Mcdonald. Transcribed by: [email or web address], User Resident: PETAR TOLBERT Electronically Signed by: TAWNYA MCDONALD @ 01/24/2019 09:06 PM I personally read this/these film(s) with this resident Normal [facility] Comment on above: Order Comment: , , = ========= , Ordering Provider - JOSI REHMAN MD , Cardiovascular Lab Reporton 11-24-2018 Cardiovascular Lab Report [facility] Patient Name: Sanaz Alvarez [facility] MR #: [id number] Physician: Austin Groves of [facility] Renteria Medicine Service Date: 11/23/2018 Division of Birthdate: 1945 Cardiology Room #: Adult Cardiovascular Services [place] [address] Cardiovascular Laboratory Report INDICATIONS: The patient has a LINQ loop recorder placed by Dr. Ga in the past. She was having a lot of discomfort with it. I saw her in the [place] office, went through the recording. She was [...] Renteria M.D. Date Trans: 11/24/2018 01:55 A/cornelio [id number] cc: Austin Torres M.D. [address] [facility] [address] [address] [facility] Vital Signs Date Time Vital Sign Value Performing Clinician Facility 01-27-2025 14:23040 Body height 152.4 cm Dea MCCLENDON Work Phone: [facility] 01-27-2025 14:23-0400 Body mass index (BMI) [Ratio] 27.5 kg/m2 Dea MCCLENDON Work Phone: [facility] 01-27-2025 14:23-040 Body weight 63.87 kg Dea MCCLENDON Work Phone: [facility] 01-27-2025 14:23-0400 Diastolic blood pressure 76 mm[Hg] Dea MCCLENDON Work Phone: [facility] 01-27-2025 14:23-0400 Heart rate 47 /min Dea Hemmer PA Work Phone: [facility] 01-27-2025 14:23-0400 Respiratory rate 16 /min Dea Hemmer PA Work Phone: [facility] 01-27-2025 14:23-0400 SaO2% (BldA) [Mass fraction] 97 % Dea Hemmer PA Work Phone: [facility] 01-27-2025 14:23-0400 Systolic blood pressure 130 mm[Hg] Dea Hemmer PA Work Phone: [facility] 12-27-2024 11:27-0500 Body height 152.4 cm Austin Torres MD Work Phone: [facility] 12-27-2024 11:27-0500 Body mass index (BMI) [Ratio] 27.3 kg/m2 Austin Torres MD Work Phone: [facility] 12-27-2024 11:27-0500 Body weight 63.41 kg Austin Torres MD Work Phone: [facility] 12-27-2024 11:27-0500 Diastolic blood pressure 79 mm[Hg] Austin Torres MD Work Phone: [facility] 12-27-2024 11:27-0500 Heart rate 67 /min Austin Torres MD Work Phone: [facility] 12-27-2024 11:27-0500 Respiratory rate 16 /min Austin Torres MD Work Phone: [facility] 12-27-2024 11:27-0500 SaO2% (BldA) [Mass fraction] 99 % Austin Torres MD Work Phone: [facility] 12-27-2024 11:27-0500 Systolic blood pressure 136 mm[Hg] Austin Torres MD Work Phone: [facility] 10-28-2024 14:12-0500 Body height 152.4 cm Dea Hemmer PA Work Phone: [facility] 10-28-2024 14:12-0500 Body mass index (BMI) [Ratio] 27.65 kg/m2 Dea Hemmer PA Work Phone: [facility] 10-28-2024 14:12-0500 Body weight 64.23 kg Dea Hemmer PA Work Phone: [facility] 10-28-2024 14:12-0500 Diastolic blood pressure 68 mm[Hg] Dea Hemmer PA Work Phone: [facility] 10-28-2024 14:12-0500 Respiratory rate 16 /min Dea Hemmer PA Work Phone: [facility] 10-28-2024 14:12-0500 SaO2% (BldA) [Mass fraction] 97 % Dea Hemmer PA Work Phone: [facility] 10-28-2024 14:12-0500 Systolic blood pressure 116 mm[Hg] Dea Hemmer PA Work Phone: [facility] 10-21-2024 13:33-0500 Body mass index (BMI) [Ratio] 27.34 kg/m2 Dea Hemmer PA Work Phone: [facility] 10-21-2024 13:33-0500 Body weight 63.5 kg Dea Hemmer PA Work Phone: [facility] 10-21-2024 13:33-0500 Diastolic blood pressure 75 mm[Hg] Dea Hemmer PA Work Phone: [facility] 10-21-2024 13:33-0500 Heart rate 41 /min Dea Hemmer PA Work Phone: [facility] 10-21-2024 13:33-0500 Respiratory rate 18 /min Dea Hemmer PA Work Phone: [facility] 10-21-2024 13:33-0500 SaO2% (BldA) [Mass fraction] 98 % Dea Hemmer PA Work Phone: [facility] 10-21-2024 13:33-0500 Systolic blood pressure 115 mm[Hg] Dea Hemmer PA Work Phone: [facility] 09-24-2024 15:29-0500 Body height 152.4 cm Dea Hemmer PA Work Phone: [facility] 09-24-2024 15:29-0500 Body mass index (BMI) [Ratio] 27.81 kg/m2 Dea Hemmer PA Work Phone: [facility] 09-24-2024 15:29-0500 Body temperature 96.49 [degF] Dea Hemmer PA Work Phone: [facility] 09-24-2024 15:29-0500 Body weight 64.59 kg Dea Hemmer PA Work Phone: [facility] 09-24-2024 15:29-0500 Diastolic blood pressure 72 mm[Hg] Dea Hemmer PA Work Phone: [facility] 09-24-2024 15:29-0500 Heart rate 55 /min Dea Hemmer PA Work Phone: [facility] 09-24-2024 15:29-0500 Respiratory rate 16 /min Dea Hemmer PA Work Phone: [facility] 09-24-2024 15:29-0500 SaO2% (BldA) [Mass fraction] 96 % Dea Hemmer PA Work Phone: [facility] 09-24-2024 15:29-0500 Systolic blood pressure 136 mm[Hg] Dea Hemmer PA Work Phone: [facility] 09-18-2024 11:15-0500 Body height 152.4 cm Aiden Brunson DO Work Phone: [facility] 09-18-2024 11:15-0500 Body mass index (BMI) [Ratio] 27.34 kg/m2 Aiden Brunson DO Work Phone: [facility] 09-18-2024 11:15-0500 Body weight 63.5 kg Aiden Brunson DO Work Phone: [facility] 09-18-2024 11:15-0500 Diastolic blood pressure 80 mm[Hg] Aiden Laray DO Work Phone: [facility] 09-18-2024 11:15-0500 Systolic blood pressure 125 mm[Hg] Aiden Hollingsworthfay DO Work Phone: [facility] 07-18-2024 11:30-0400 Body height 149.9 cm Gabriel Alvarez DPM Work Phone: [facility] 07-18-2024 11:30-0400 Body mass index (BMI) [Ratio] 28.68 kg/m2 Gabriel Alvarez DPM Work Phone: [facility] 07-18-2024 11:30-0400 Body weight 64.41 kg Gabriel Alvarez DPM Work Phone: [facility] 07-18-2024 11:30-0400 Diastolic blood pressure 75 mm[Hg] Gabriel Alvarez DPM Work Phone: [facility] 07-18-2024 11:30-0400 Heart rate 83 /min Gabriel Alvarez DPM Work Phone: [facility] 07-18-2024 11:30-0400 Systolic blood pressure 124 mm[Hg] Gabriel Alvarez DPM Work Phone: [facility] 07-09-2024 14:46-0400 Body height 149.9 cm Dea Hemmer PA Work Phone: [facility] 07-09-2024 14:46-0400 Body mass index (BMI) [Ratio] 28.6 kg/m2 Dea Hemmer PA Work Phone: [facility] 07-09-2024 14:46-0400 Body weight 64.23 kg Dea Hemmer PA Work Phone: [facility] 07-09-2024 14:46-0400 Diastolic blood pressure 74 mm[Hg] Dea Hemmer PA Work Phone: [facility] 07-09-2024 14:46-0400 Heart rate 58 /min Dea Hemmer PA Work Phone: [facility] 07-09-2024 14:46-0400 Respiratory rate 16 /min Dea Rodriguez PA Work Phone: [facility] 07-09-2024 14:46-0400 SaO2% (BldA) [Mass fraction] 97 % Dea Rodriguez PA Work Phone: [facility] 07-09-2024 14:46-0400 Systolic blood pressure 122 mm[Hg] Dea Rodriguez PA Work Phone: [facility] 07-01-2024 13:56-0400 Body height 149.9 cm Tawnya Lomeli MD Work Phone: [facility] 07-01-2024 13:56-0400 Body mass index (BMI) [Ratio] 28.07 kg/m2 Tawnya Lomeli MD Work Phone: [facility] 07-01-2024 13:56-0400 Body weight 63.05 kg Tawnya Lomeli MD Work Phone: [facility] 07-01-2024 13:56-0400 Diastolic blood pressure 70 mm[Hg] Tawnya Lomeli MD Work Phone: [facility] 07-01-2024 13:56-0400 Heart rate 54 /min Tawnya Lomeli MD Work Phone: [facility] 07-01-2024 13:56-0400 Systolic blood pressure 122 mm[Hg] Tawnya Lomeli MD Work Phone: [facility] 12-13-2023 13:20-0500 Body height 149.9 cm Austin Torres MD Work Phone: [facility] 12-13-2023 13:20-0500 Body mass index (BMI) [Ratio] 29.49 kg/m2 Austin Torres MD Work Phone: [facility] 12-13-2023 13:20-0500 Body temperature 98.1 [degF] Austin Torres MD Work Phone: [facility] 12-13-2023 13:20-0500 Body weight 66.22 kg Austin Torres MD Work Phone: [facility] 12-13-2023 13:20-0500 Diastolic blood pressure 76 mm[Hg] Austin Torres MD Work Phone: [facility] 12-13-2023 13:20-0500 Heart rate 52 /min Austin Torres MD Work Phone: [facility] 12-13-2023 13:20-0500 SaO2% (BldA) [Mass fraction] 96 % Austin Torres MD Work Phone: [facility] 12-13-2023 13:20-0500 Systolic blood pressure 130 mm[Hg] Austin Torres MD Work Phone: [facility] 06-30-2023 11:09-0400 Body height 149.86 cm Austin Torres Work Phone: [facility] DO Work Phone: 06-30-2023 11:09-0400 Body mass index (BMI) [Ratio] 28.68 kg/m2 Austin Torres Work Phone: [facility] DO Work Phone: 06-30-2023 11:09-0400 Body surface area Derived from formula 1.59 m2 Austin Torres Work Phone: [facility] DO Work Phone: 06-30-2023 11:09-0400 Body weight 64.41 kg Austin Torres Work Phone: [facility] DO Work Phone: 06-30-2023 11:09-0400 Diastolic blood pressure 62 mm[Hg] Austin Torres Work Phone: [facility] DO Work Phone: 06-30-2023 11:09-0400 Heart rate 74 /min Austin Torres Work Phone: [facility] DO Work Phone: 06-30-2023 11:09-0400 Systolic blood pressure 106 mm[Hg] Austin Mello Brian Work Phone: [facility] DO Work Phone: 05-31-2023 14:00-0400 Body height 152.4 cm Eladio Albino Other [employer] Other 05-31-2023 14:00-0400 Body mass index (BMI) [Ratio] 27.34 kg/m2 Eladio Albino Other [employer] Other 05-31-2023 14:00-0400 Body weight 63.5 kg Eladio Albino Other [employer] Other 2022 13:06-0500 Body height 149.86 cm Tawnya Lomeli MD Work Phone: [facility] DO Work Phone: 2022 13:06-0500 Body mass index (BMI) [Ratio] 28.88 kg/m2 Tawnya Lomeli MD Work Phone: [facility] DO Work Phone: 2022 13:06-0500 Body surface area Derived from formula 1.6 m2 Tawnya Lomeli MD Work Phone: [facility] DO Work Phone: 2022 13:06-0500 Body weight 64.86 kg Tawnya Lomeli MD Work Phone: [facility] DO Work Phone: 2022 13:06-0500 Diastolic blood pressure 72 mm[Hg] Tawnya Lomeli MD Work Phone: [facility] DO Work Phone: 2022 13:06-0500 Heart rate 61 /min Tawyna Lomeli MD Work Phone: [facility] DO Work Phone: 2022 13:06-0500 Systolic blood pressure 132 mm[Hg] Tawnya Lomeli MD Work Phone: [facility] DO Work Phone: 05-16-2022 12:15-0400 Body height 152.4 cm Eladio Albino Other [facility] [email or web address] Other 05-16-2022 12:15-0400 Body mass index (BMI) [Ratio] 29.49 kg/m2 Eladio Albino Other [facility] [email or web address] Other 05-16-2022 12:15-0400 Body weight 68.49 kg Eladio Albino Other [employer] Other 04-29-2022 11:15-0400 Body height 152.4 cm Eladio Albino Other [employer] Other 04-29-2022 11:15-0400 Body mass index (BMI) [Ratio] 29.88 kg/m2 Eladio Albino Other [employer] Other 04-29-2022 11:15-0400 Body weight 69.4 kg Eladio Albino Other [employer] Other 01-25-2022 13:53-0400 Body height 152.4 cm Tawnya Lomeli MD Work Phone: [facility] DO Work Phone: 01-25-2022 13:53-0400 Body mass index (BMI) [Ratio] 27.07 kg/m2 Tawnya Lomeli MD Work Phone: [facility] DO Work Phone: 01-25-2022 13:53-0400 Body surface area Derived from formula 1.6 m2 Tawnya Lomeli MD Work Phone: [facility] DO Work Phone: 01-25-2022 13:53-0400 Body weight 62.87 kg Tawnya Lomeli MD Work Phone: [facility] DO Work Phone: 01-25-2022 13:53-0400 Diastolic blood pressure 80 mm[Hg] Tawnya Lomeli MD Work Phone: [facility] DO Work Phone: 01-25-2022 13:53-0400 Heart rate 65 /min Tawnya Lomeli MD Work Phone: [facility] DO Work Phone: 01-25-2022 13:53-0400 Systolic blood pressure 139 mm[Hg] Tawnya Lomeli MD Work Phone: [facility] DO Work Phone: 01-25-2022 13:53-0400 14 1 Tawnya Lomeli MD Work Phone: [facility] DO Work Phone: Comment on above: PHQ-9 TS Encounters Encounter Date Encounter Type Care Provider Facility Start: 01-27-2025 End: 01-27-2025 Office outpatient visit 25 minutes Dea MCCLENDON Work Phone: [facility] Comment on above: Moderate episode of recurrent major depressive disorder (CMS/HCC) (Primary Dx); Atherosclerosis of solomon coronary artery of solomon heart without angina pectoris (CMS/HCC); Primary localized osteoarthrosis of left shoulder region; Local edema Start: 01-27-2025 End: 01-27-2025 ambulatory DEA RODRIGUEZ Not Available Start: 01-27-2025 End: 01-27-2025 Bamboo flowsheet Dea Rodriguez PA Work Phone: [facility] Start: 01-27-2025 End: 01-27-2025 Bamboo flowsheet Dea Rodriguez PA Work Phone: [facility] Start: 12-27-2024 End: 12-27-2024 Bamboo flowsheet Austin Torres MD Work Phone: [facility] Start: 12-27-2024 End: 12-27-2024 Bamboo flowsheet Austin Torres MD Work Phone: [facility] Start: 12-27-2024 End: 12-27-2024 Office outpatient visit 25 minutes Austin Torres MD Work Phone: [facility] Comment on above: Acute non-recurrent sinusitis, unspecified location (Primary Dx); Mild episode of recurrent major depressive disorder (HCC) (CMS/HCC); Rheumatoid arthritis, unspecified (CMS/HCC); Major depressive disorder, recurrent severe without psychotic features (HCC) (CMS/HCC); Chronic diastolic (congestive) heart failure (CMS/HCC); Severe persistent asthma, uncomplicated (CMS/HCC); Paroxysmal atrial fibrillation (CMS/HCC) Start: 12-27-2024 End: 12-27-2024 ambulatory AUSTIN TORRES Not Available Start: 12-12-2024 End: 12-18-2024 Refill Anahi Tillman MA [facility] Comment on above: Sensory polyneuropat hy Start: 11-11-2024 End: 11-11-2024 Refill 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 Phone: [facility] Comment on above: Sensory polyneuropat hy (Primary Dx) Start: 10-28-2024 End: 10-28-2024 ambulatory DEA RODRIGUEZ Not Available Start: 10-28-2024 End: 10-28-2024 Bamboo flowsheet Dea Rodriguez PA Work Phone: [facility] Start: 10-28-2024 End: 10-28-2024 Bamboo flowsheet Dea Rodriguez PA Work Phone: [facility] Start: 10-28-2024 End: 10-28-2024 Office outpatient visit 25 minutes Dea Rodriguez PA Work Phone: [facility] Comment on above: Palpitations (Primar y Dx); Severe episode of recurrent major depressive disorder, without psychotic features (HCC) (CMS/HCC); Chronic fatigue syndrome Start: 10-28-2024 End: 10-29-2024 Refill Austin Torres MD Work Phone: [facility] Comment on above: Pure hypercholestero lemia (CMS/HCC) Start: 10-21-2024 End: 10-21-2024 Emergency department patient visit Kory Najera Facility:[facility] Start: 10-21-2024 End: 10-21-2024 Bamboo flowsheet Dea Rodriguez PA Work Phone: [facility] Start: 10-21-2024 End: 10-21-2024 [employer] Dea Rodriguez PA Work Phone: [facility] Start: 10-21-2024 End: 10-21-2024 Office outpatient visit 25 minutes Dea Rodriguez PA Work Phone: [facility] Comment on above: Atherosclerosis of n ative coronary artery of solomon heart without angina pectoris (CMS/HCC) (Primary Dx); Severe episode of recurrent major depressive disorder, without psychotic features (HCC) (CMS/HCC); Palpitations; Paroxysmal atrial fibrillation (CMS/HCC); Benign essential hypertension (CMS/HCC); Mild episode of recurrent major depressive disorder (HCC) (CMS/HCC) Start: 10-21-2024 End: 10-21-2024 ambulatory DEA RODRIGUEZ Not Available Start: 10-17-2024 End: 10-23-2024 Telephone encounter Raquel Barrientos PTA [facility] Comment on above: re: PT today Start: 10-09-2024 End: 10-09-2024 ambulatory AIDEN BRUNSON Not Available Start: 10-09-2024 End: 10-09-2024 Office outpatient visit 25 minutes Aiden Brunson DO Work Phone: [facility] Comment on above: Generalized abdomina l pain (Primary Dx); Heartburn Start: 10-08-2024 End: 10-08-2024 Bamboo flowsheet Merari Maza INFORMATION TECHNOLOGY SPECIALIST [facility] Start: 10-08-2024 End: 10-08-2024 Bamboo flowsheet Merari Constantinoy INFORMATION TECHNOLOGY SPECIALIST [facility] Start: 10-08-2024 End: 10-08-2024 ambulatory Merari Maza INFORMATION TECHNOLOGY SPECIALIST [facility] Comment on above: Cervicalgia (Primary Dx); Cervical paraspinal muscle spasm; Acute arthritis Start: 10-02-2024 End: 10-02-2024 Bamboo flowsheet Raquel Brink INFORMATION TECHNOLOGY SPECIALIST [facility] Start: 10-02-2024 End: 10-02-2024 Bamboo flowsheet Raquel Brink INFORMATION TECHNOLOGY SPECIALIST [facility] Start: 10-02-2024 End: 10-02-2024 ambulatory Raquel Brink INFORMATION TECHNOLOGY SPECIALIST [facility] Comment on above: Cervicalgia (Primary Dx); Cervical paraspinal muscle spasm; Acute arthritis; Muscle weakness (generalized) Start: 09-27-2024 End: 09-27-2024 ambulatory Austin Torres Facility:[facility] Start: 09-24-2024 End: 09-24-2024 Office outpatient visit 25 minutes Dea MCCLENDON Work Phone: [facility] Comment on above: COPD exacerbation (C MS/HCC) (Primary Dx); Acute non-recurrent maxillary sinusitis; Flare of rheumatoid arthritis (CMS/HCC); Mild episode of recurrent major depressive disorder (HCC) (CMS/HCC); Severe persistent asthma, uncomplicated (CMS/HCC); Secondary hyperaldosteronism (CMS/HCC); Atherosclerosis of coronary artery bypass graft(s), unspecified, with angina pectoris with documented spasm (CMS/HCC) Start: 09-24-2024 End: 09-24-2024 Bamboo flowsheet Raquel Brink INFORMATION TECHNOLOGY SPECIALIST [facility] Start: 09-24-2024 End: 09-24-2024 Bamboo flowsheet Raquel Barrientos INFORMATION TECHNOLOGY SPECIALIST [facility] Start: 09-24-2024 End: 09-24-2024 ambulatory Raquel Barrientos INFORMATION TECHNOLOGY SPECIALIST [facility] Comment on above: Cervicalgia (Primary Dx); Cervical paraspinal muscle spasm; Acute arthritis; Muscle weakness (generalized) Start: 09-20-2024 End: 09-23-2024 ambulatory Raquel Barrientos INFORMATION TECHNOLOGY SPECIALIST [facility] Comment on above: Cervicalgia (Primary Dx); Cervical paraspinal muscle spasm; Acute arthritis; Muscle weakness (generalized) Start: 09-20-2024 End: 09-20-2024 Bamboo flowsheet Aiden Brunson DO Work Phone: [facility] Start: 09-20-2024 End: 09-20-2024 Bamboo flowsheet Aiden Brunson DO Work Phone: [facility] Start: 09-18-2024 End: 09-18-2024 ambulatory AIDEN BRUNSON Not Available Start: 09-18-2024 End: 09-18-2024 Office outpatient new 45 minutes Aiden Brunson DO Work Phone: [facility] Comment on above: Generalized abdomina l pain (Primary Dx); Ventral hernia without obstruction or gangrene Start: 09-17-2024 End: 09-17-2024 Bamboo flowsheet Merari Constantinoy INFORMATION TECHNOLOGY SPECIALIST [facility] Start: 09-17-2024 End: 09-17-2024 Bamboo flowsheet Merari Riverobley INFORMATION TECHNOLOGY SPECIALIST [facility] Start: 09-17-2024 End: 09-17-2024 ambulatory Merari Constantinoy INFORMATION TECHNOLOGY SPECIALIST [facility] Comment on above: Cervicalgia (Primary Dx); Cervical paraspinal muscle spasm; Acute arthritis Start: 09-13-2024 End: 09-16-2024 ambulatory Raquel Barrientos INFORMATION TECHNOLOGY SPECIALIST [facility] Comment on above: Cervicalgia (Primary Dx); Cervical paraspinal muscle spasm; Acute arthritis; Muscle weakness (generalized) Start: 09-13-2024 End: 09-13-2024 Bamboo flowsheet Raquel Barrientos INFORMATION TECHNOLOGY SPECIALIST [facility] Start: 09-13-2024 End: 09-13-2024 Bamboo flowsheet Raquel Barrientos INFORMATION TECHNOLOGY SPECIALIST [facility] Start: 09-10-2024 End: 09-10-2024 Bamboo flowsheet Merari Maza INFORMATION TECHNOLOGY SPECIALIST [facility] Start: 09-10-2024 End: 09-10-2024 Bamboo flowsheet Merari Maza INFORMATION TECHNOLOGY SPECIALIST [facility] Start: 09-10-2024 End: 09-10-2024 ambulatory Merari Maza INFORMATION TECHNOLOGY SPECIALIST [facility] Comment on above: Cervicalgia (Primary Dx); Cervical paraspinal muscle spasm; Acute arthritis Start: 09-05-2024 End: 09-05-2024 Telephone encounter Merari Maza INFORMATION TECHNOLOGY SPECIALIST [facility] Comment on above: re: PT today (She navas d called and lm noting she was mistaken by the time and assumed she had an hour to get ready but she figured out it was past her PT time. She said she will be here 09/10 @ 2:00.) Start: 09-03-2024 End: 09-03-2024 ambulatory Merari Maza INFORMATION TECHNOLOGY SPECIALIST [facility] Comment on above: Cervicalgia (Primary Dx); Cervical paraspinal muscle spasm; Acute arthritis; Muscle weakness (generalized) Start: 09-03-2024 End: 09-03-2024 Bamboo flowsheet Merari Maza INFORMATION TECHNOLOGY SPECIALIST [facility] Start: 09-03-2024 End: 09-03-2024 Bamboo flowsheet Merari Maza INFORMATION TECHNOLOGY SPECIALIST [facility] Start: 08-27-2024 End: 08-27-2024 Bamboo flowsheet Raquel Barrientos INFORMATION TECHNOLOGY SPECIALIST [facility] Start: 08-27-2024 End: 08-27-2024 Bamboo flowsheet Raquel Barrientos INFORMATION TECHNOLOGY SPECIALIST [facility] Start: 08-27-2024 End: 08-27-2024 ambulatory Raquel Barrientos INFORMATION TECHNOLOGY SPECIALIST [facility] Comment on above: Cervicalgia (Primary Dx); Cervical paraspinal muscle spasm; Acute arthritis; Muscle weakness (generalized) Start: 08-23-2024 End: 08-23-2024 Bamboo flowsheet Merari Maza INFORMATION TECHNOLOGY SPECIALIST [facility] Start: 08-23-2024 End: 08-23-2024 Bamboo flowsheet Merari Constantinoy INFORMATION TECHNOLOGY SPECIALIST [facility] Start: 08-23-2024 End: 08-23-2024 ambulatory Merari Maza INFORMATION TECHNOLOGY SPECIALIST [facility] Comment on above: Cervicalgia (Primary Dx); Cervical paraspinal muscle spasm; Acute arthritis; Muscle weakness (generalized) Start: 08-20-2024 End: 08-20-2024 Bamboo flowsheet Raquel Brink INFORMATION TECHNOLOGY SPECIALIST [facility] Start: 08-20-2024 End: 08-20-2024 Bamboo flowsheet Raquel Brink INFORMATION TECHNOLOGY SPECIALIST [facility] Start: 08-20-2024 End: 08-20-2024 ambulatory Raquel Brink INFORMATION TECHNOLOGY SPECIALIST [facility] Comment on above: Cervical paraspinal muscle spasm (Primary Dx); Cervicalgia; Acute arthritis; Muscle weakness (generalized) Start: 08-16-2024 End: 08-16-2024 Bamboo flowsheet Raquel Brink INFORMATION TECHNOLOGY SPECIALIST [facility] Start: 08-16-2024 End: 08-16-2024 Bamboo flowsheet Raquel Brink INFORMATION TECHNOLOGY SPECIALIST [facility] Start: 08-16-2024 End: 08-16-2024 ambulatory Raquel Brink INFORMATION TECHNOLOGY SPECIALIST [facility] Comment on above: Cervical paraspinal muscle spasm (Primary Dx); Acute arthritis; Muscle weakness (generalized) Start: 08-13-2024 End: 08-13-2024 Bamboo flowsheet Raquel Brink INFORMATION TECHNOLOGY SPECIALIST [facility] Start: 08-13-2024 End: 08-13-2024 Bamboo flowsheet Raquel Brink INFORMATION TECHNOLOGY SPECIALIST [facility] Start: 08-13-2024 End: 08-13-2024 ambulatory Raquel Brink INFORMATION TECHNOLOGY SPECIALIST [facility] Comment on above: Cervical paraspinal muscle spasm (Primary Dx); Acute arthritis; Muscle weakness (generalized) Start: 08-09-2024 End: 08-09-2024 ambulatory Raquel Brink INFORMATION TECHNOLOGY SPECIALIST [facility] Comment on above: Cervical paraspinal muscle spasm (Primary Dx); Acute arthritis Start: 08-06-2024 End: 08-06-2024 ambulatory Santhosh Vickers PT Work Phone: [facility] Comment on above: Cervical paraspinal muscle spasm (Primary Dx) Start: 08-01-2024 End: 08-01-2024 Refill 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 Phone: [facility] Comment on above: Sensory polyneuropat hy (Primary Dx) Start: 07-18-2024 End: 07-18-2024 Bamboo flowsheet Gabriel Alvarez DPM Work Phone: [facility] Start: 07-18-2024 End: 07-18-2024 Bamboo flowsheet Gabriel Alvarez DPM Work Phone: [facility] Start: 07-18-2024 End: 07-18-2024 ambulatory GABRIEL ALVAREZ Not Available Start: 07-18-2024 End: 07-18-2024 Office outpatient visit 15 minutes Gabriel Alvarez DPM Work Phone: [facility] Comment on above: Exostosis of right f oot (Primary Dx) Start: 07-18-2024 End: 07-18-2024 ambulatory GABRIEL ALVAREZ Not Available Start: 07-09-2024 End: 07-09-2024 Office outpatient visit 25 minutes Dea MCCLENDON Work Phone: [facility] Comment on above: Cervicalgia (Primary Dx); Age-related osteoporosis without current pathological fracture (CMS/HCC); Hallux valgus (acquired), right foot; Localized superficial swelling, mass, or lump Start: 07-09-2024 End: 07-09-2024 ambulatory DEA RODRIGUEZ Not Available Start: 07-09-2024 End: 07-09-2024 Bamboo flowsheet Dea Rodriguez PA Work Phone: [facility] Start: 07-09-2024 End: 07-09-2024 Bamboo flowsheet Dea Rodriguez PA Work Phone: [facility] Start: 07-04-2024 End: 07-04-2024 Clinisync Result Encounter Generic External Data Provider [facility] Unsolicited Start: 07-04-2024 End: 07-04-2024 Clinisync Result Encounter Generic External Data Provider [facility] External Department Unsolicited Start: 07-03-2024 End: 07-03-2024 ambulatory Raquel Barrientos INFORMATION TECHNOLOGY SPECIALIST [facility] Comment on above: Chronic left shoulde r pain (Primary Dx); Weakness of left shoulder; Muscle weakness (generalized); Acute arthritis Start: 07-03-2024 End: 07-03-2024 Bamboo flowsheet Raquel Barrientos INFORMATION TECHNOLOGY SPECIALIST [facility] Start: 07-03-2024 End: 07-03-2024 Bamboo flowsheet Raquel Barrientos INFORMATION TECHNOLOGY SPECIALIST [facility] Start: 07-01-2024 End: 07-01-2024 Office outpatient visit 25 minutes Tawnya Lomeli MD Work Phone: [facility] Comment on above: Paroxysmal atrial fi brillation (Multi) (Primary Dx); Coronary artery disease involving solomon coronary artery of solomon heart without angina pectoris; Hyperlipidemia, unspecified hyperlipidemia type; At risk for falls; High risk medication use; Essential hypertension; PVC (premature ventricular contraction) Start: 07-01-2024 End: 07-01-2024 ambulatory [facility] Ambulatory Start: 06-26-2024 End: 06-26-2024 ambulatory Raquel Barrientos INFORMATION TECHNOLOGY SPECIALIST [facility] Comment on above: Chronic left shoulde r pain (Primary Dx); Weakness of left shoulder; Muscle weakness (generalized); Acute arthritis Start: 06-26-2024 End: 06-26-2024 Bamboo flowsheet Raquel Brann INFORMATION TECHNOLOGY SPECIALIST [facility] Start: 06-26-2024 End: 06-26-2024 Bamboo flowsheet Raquel Barrientos INFORMATION TECHNOLOGY SPECIALIST [facility] Start: 06-19-2024 End: 06-19-2024 ambulatory RAQUEL BRINK Not Available Start: 06-18-2024 End: 06-18-2024 ambulatory CLAUDIA OLIVER Not Available Start: 06-11-2024 End: 06-11-2024 ambulatory RAQUEL BRINK Not Available Start: 06-06-2024 End: 06-06-2024 ambulatory CLAUDIA OLIVER Not Available Start: 06-04-2024 End: 06-04-2024 ambulatory [...] Not Available Start: 04-16-2024 End: 04-16-2024 ambulatory MERARI MAZA Not Available Start: 04-10-2024 End: 04-10-2024 ambulatory DEA Fuentes JENNFIER Not Available Start: 04-03-2024 End: 04-03-2024 ambulatory SANTHOSH VICKERS Not Available Start: 03-11-2024 End: 03-11-2024 ambulatory II Austin Torres Work Phone: [facility] Work Phone: Start: 03-11-2024 End: 03-11-2024 Patient encounter procedure II Austin Torres Work Phone: [facility] Work Phone: Start: 01-16-2024 End: 01-17-2024 ambulatory TAWNYA Fuentes [facility] Start: 01-16-2024 End: 01-16-2024 Subsequent hospital visit by physician Naima [facility] Echo/Vasc Room 2 [facility] Comment on above: Coronary artery dise ase involving solomon coronary artery of solomon heart without angina pectoris; Dizziness Start: 12-19-2023 End: 12-19-2023 ambulatory TAWNYA Fuentes [facility] Ambulatory Start: 12-13-2023 Bamboo flowsheet Austin mixon [...] (CMS/HCC); Longstanding persistent atrial fibrillation (CMS/HCC) Start: 06-30-2023 Office outpatient vi sit 25 minutes Austin Torres Work Phone: [facility] DO Work Phone: Start: 06-30-[address] Tawnya Lomeli Facility: Start: 06-09-2023 Rx Renewal Tawnya Lomeli MD Work Phone: [facility] DO Work Phone: Start: 05-31-2023 Office outpatient vi sit 15 minutes [facility] Start: 05-31-2023 End: 05-31-2023 ambulatory II Austin Torres Work Phone: [facility] Work Phone: Start: 05-31-2023 End: 05-31-2023 Patient encounter procedure II Austin Torres Work Phone: [facility] Start: 05-16-2023 Rx Renewal Tawnya Lomeli MD Work Phone: [facility] DO Work Phone: Start: 04-12-2023 Rx Renewal Tawnya Lomeli MD Work Phone: [facility] DO Work Phone: Start: 02-22-2023 End: 02-23-2023 ambulatory CLAUDIA OLIVER Facility:[facility] Start: 01-09-2023 Rx Renewal Tawnya Lomeli MD Work Phone: [facility] DO Work Phone: Start: 10-11-2022 Rx Renewal Tawnya Lomeli MD Work Phone: [facility] DO Work Phone: Start: 09-30-[address] Tawnya Lomeli Facility: Start: 09-22-2022 Patient encounter procedure [id number] [facility] [id number] MANAGER SOUND 1 Work Phone: [facility] DO Work Phone: Start: 09-22-[address] Tawnya Lomeli Facility: Start: 2022 Office outpatient vi sit 25 minutes Tawnya Lomeli MD Work Phone: [facility] DO Work Phone: Start: [address] Jono Barragan Facility: Start: 08-31-2022 End: 09-01-[address] HAZEL OSMAN . Facility:[facility] Start: 08-09-2022 End: 08-09-[address] HAZEL OSMAN . Facility:[facility] Start: 07-28-2022 End: 07-29-[address] HAZEL OSMAN . Facility:[facility] Start: 07-12-2022 End: 07-12-[address] HAZEL OSMAN . Facility:[facility] Start: 06-21-2022 End: 06-22-[address] HAZEL OSMAN . Facility:[facility] Start: 06-21-2022 End: 06-22-[address] AHZEL OSMAN . Facility: Start: 05-16-2022 End: 05-16-2022 ambulatory Eladio Douglass Other [employer] Other Start: 05-16-2022 Office outpatient vi sit 15 minutes Eladio Douglass [facility] Start: 04-29-2022 End: 04-29-2022 ambulatory Eladio Douglass Other [employer] Other Start: 04-29-2022 Office outpatient vi sit 15 minutes Eladio Douglass [facility] Start: 03-28-2022 Rx Change Tawnya Lomeli MD Work Phone: [employer] 250 DO Work Phone: Start: 01-25-2022 Office outpatient vi sit 25 minutes Tanwya Lomeli MD Work Phone: [employer] [employer] 250 DO Work Phone: Start: 10-25-2021 End: 10-25-2021 ambulatory Mariana Ginty Other [employer] Other Start: 10-25-2021 Patient encounter procedure Mariana Gi nty [facility] [place] Start: 09-27-2021 End: 09-27-2021 ambulatory Eladio Douglass Other [employer] Other Start: 09-27-2021 Postop follow up vis it related to original px Eladio Douglass [facility] Start: 07-06-2020 End: 07-06-2020 Subsequent hospital visit by physician [facility] Comment on above: Chronic left shoulde r pain [M25.512, G89.29] Start: 11-23-2018 End: 11-24-2018 Patient encounter procedure AUSTIN RENTERIA Facility:[facility] Procedures Date Procedure Procedure Detail Performing Clinician Start: 07-04-2024 ALL BASIC METABOLIC PANEL Generic External Data Provider Start: 07-01-2024 Ecg routine ecg w/least 12 lds w/i&r Tawnya Lomeli MD Work Phone: Start: 03-11-2024 Plain X-ray of right shoulder II Austin Torres Work Phone: Start: 01-16-2024 VASC US CAROTID ARTERY DUPLEX BILATERAL TAWNYA LOMELI Start: 12-19-2023 ECG 12-LEAD TAWNYA LOMELI Start: 10-27-2023 History of coronary artery bypass [...] Austin Torres MD Work Phone: Start: 08-11-2017 End: 04-10-2024 History of coronary artery bypass grafting Eladio Douglass Other Cataract surgery Tawnya willoughby MD Work Phone: Decompression of med shelly nerve Tawnya Lomeli MD Work Phone: Excision of peripher al neuroma Tawnya Lomeli MD Work Phone: History of coronary artery bypass grafting History of coronary artery bypass graft Tawnya Lomeli MD Work Phone: History of coronary artery bypass grafting Aortocoronary bypass status II Austinkenton Torres Work Phone: Ligation of fallopia n tube Tawnya Lomeli MD Work Phone: Operation on fracture Tawnya Lomeli MD Work Phone: Operative procedure on foot Tawnya Lomeli MD Work Phone: Operative procedure on wrist Tawnya Lomeli MD Work Phone: Prosthetic arthropla sty of shoulder Tawnya Lomeli MD Work Phone: Tonsillectomy and adenoidectomy Tawnya Lomeli MD Work Phone: Total colonoscopy Tawnya burgess MD Work Phone: Plan of Treatment Date Care Activity Detail Author Start: 07-26-2033 DTaP/Tdap/Td Vaccines (3 - Td or Tdap) DTaP/Tdap/Td Vaccines (3 - Td or Tdap) [facility] Start: 08-16-2025 Screening for osteoporosis Bone Density Scan [facility] Start: 02-27-2025 End: 02-27-2025 Patient encounter procedure 02/27/2025 1:30 PM EDT Office Visit [facility] [address] [place] [address] Dea Rodriguez PA [address] [place] [address] [facility] Start: 01-31-2025 End: 01-31-2025 Patient encounter procedure 01/31/2025 2:00 PM EDT Office Visit [facility] [address] [facility] [address] [place] [address] Tawnya Lomeli MD [address] [facility] [place] [address] [facility] Start: 01-27-2025 End: 01-27-2025 Patient encounter procedure [facility] Comment on above: Arrived Start: 12-27-2024 End: 12-27-2024 Patient encounter procedure 12/27/2024 11:45 AM EST Office Visit [facility] [address] [place] [address] Austin Torres MD [address] [place] [address] Arrived [facility] Comment on above: Arrived Start: 12-23-2024 End: 12-23-2024 Patient encounter procedure 12/23/2024 1:15 PM EST Office Visit [facility] [address] [place] [address] Austin Torres MD [address] [place] [address] [facility] Start: 10-28-2024 End: 10-28-2024 Patient encounter procedure 10/28/2024 2:00 PM EST Office Visit [facility] [address] [place] [address] Dea Rodriguez PA [address] [place] [address] [facility] Start: 10-21-2024 End: 10-21-2024 Patient encounter procedure 10/21/2024 1:30 PM EST Office Visit [facility] [address] [place] [address] Dea Rodriguez PA [address] [place] [address] Arrived [facility] Comment on above: Arrived Start: 10-10-2024 End: 10-10-2024 ambulatory 10/10/2024 1:00 PM EST Treatment [facility] [address] [place] [address] Raquel Barrientos PTA [facility] Start: 10-09-2024 End: 10-09-2024 Patient encounter procedure 10/09/2024 11:15 AM EST [facility] [address] [facility] [address] [place] [address] Aiden Brunson DO [address] [place] [address] [facility] Start: 10-08-2024 End: 10-08-2024 ambulatory 10/08/2024 1:00 PM EST Treatment [facility] [address] [place] [address] Raquel Barrientos, INFORMATION TECHNOLOGY SPECIALIST [facility] Start: 10-02-2024 End: 10-02-2024 ambulatory 10/02/2024 1:00 PM EST Treatment [facility] [address] [facility] [address] [place] [address] Raquel Barrientos INFORMATION TECHNOLOGY SPECIALIST [facility] Start: 09-27-2024 End: 09-27-2024 ambulatory 09/27/2024 2:30 PM EST Treatment [facility] [address] [facility] [address] [place] [address] MatMerari chua, INFORMATION TECHNOLOGY SPECIALIST [facility] Start: 09-24-2024 End: 09-24-2024 Patient encounter procedure [facility] Comment on above: Arrived Start: 09-24-2024 End: 09-24-2024 ambulatory [facility] Comment on above: Arrived Start: 09-20-2024 End: 09-20-2024 ambulatory 09/20/2024 3:00 PM EST Treatment [facility] [address] [facility] [place] [address] Raquel Barrientos INFORMATION TECHNOLOGY SPECIALIST [facility] Start: 09-18-2024 End: 09-18-2025 CT Abdomen and Pelvis WO contrast CT abdomen pelvis wo IV contrast Imaging Routine Ventral hernia without obstruction or gangrene Generalized abdominal pain Expected: 09/18/2024, Expires: 09/18/2025 [facility] Work Phone: Comment on above: Expected: 09/18/2024, Expires: Start: 09-18-2024 End: 09-18-2024 Patient encounter procedure 09/18/2024 11:00 AM EST Consult [facility] [address] [facility] [address] [place] [phone] Aiden Brunson DO [address] [facility] [address] [place] [address] [facility] Start: 09-17-2024 End: 09-17-2024 ambulatory 09/17/2024 1:30 PM EST Treatment [facility] [address] [facility] [address] [place] [address] Merari Maza, INFORMATION TECHNOLOGY SPECIALIST [facility] Start: 09-13-2024 End: 09-13-2024 ambulatory [facility] Comment on above: Arrived Start: 09-12-2024 End: 09-12-2024 Patient encounter procedure 09/12/2024 1:30 PM EST Office Visit [facility] [address] [place] [address] Gabriel Alvarez, DPM [address] [address] [facility] Start: 09-10-2024 End: 09-10-2024 ambulatory [facility] Comment on above: Cervicalgia (Primary Dx); Cervical paraspinal muscle spasm; Acute arthritis Start: 09-05-2024 End: 09-05-2024 ambulatory 09/05/2024 12:00 PM EDT Treatment [facility] [address] [facility] [address] [place] [address] Merari Maza, INFORMATION TECHNOLOGY SPECIALIST [facility] Start: 09-04-2024 End: 09-04-2024 Patient encounter procedure 09/04/2024 8:20 AM EDT Procedure Visit [facility] Gabriel Alvarez, DPM [address] [address] [facility] Start: 09-03-2024 End: 09-03-2024 ambulatory 09/03/2024 3:30 PM EDT Treatment [facility] [address] [facility] [address] [place] [address] Merari Maza, INFORMATION TECHNOLOGY SPECIALIST Cervicalgia (Primary Dx) [facility] Comment on above: Cervicalgia (Primary Dx) Start: 08-30-2024 End: 08-30-2024 ambulatory 08/30/2024 2:00 PM EDT Treatment [facility] [address] [facility] [address] [place] [address] Raquel Barrientos PTA [facility] Start: 08-30-2024 Pneumococcal Vaccine: 65+ Years (3 - PPSV23 or PCV20) Pneumococcal Vaccine: 65+ Years (3 - PPSV23 or PCV20) [facility] Comment on above: Postponed from 06/01/2016 (Patient Refus ed) Start: 08-30-2024 Pneumococcal Vaccine: 65+ Years (3 of 3 - PPSV23 or PCV20) Pneumococcal Vaccine: 65+ Years (3 of 3 - PPSV23 or PCV20) [facility] Comment on above: Postponed from 06/01/2016 (Patient Refus ed) Start: 08-27-2024 End: 08-27-2024 ambulatory [facility] Comment on above: Arrived Start: 08-23-2024 End: 08-23-2024 ambulatory 08/23/2024 2:30 PM EDT Treatment [facility] [address] [facility] [address] [place] [address] Merari Maza PTA [facility] Start: 08-22-2024 End: 08-22-2024 Patient encounter procedure 08/22/2024 1:00 PM EDT Office Visit [facility] [address] [facility] [address] [place] [address] Gabriel Alvarez, DPAlfredo [address] [facility] 5 [place] [address] [facility] Start: 08-20-2024 End: 08-20-2024 ambulatory 08/20/2024 1:00 PM EDT Treatment [facility] [address] [place] [address] Raquel Barrientos PTA [facility] Start: 08-20-2024 End: 08-20-2024 Patient encounter procedure 08/20/2024 10:00 AM EDT Office Visit [facility] [address] [place] [address] Dea Rodriguez, PA [address] [place] [address] [facility] Start: 08-16-2024 End: 08-16-2024 ambulatory [facility] Comment on above: Arrived Start: 08-13-2024 End: 08-13-2024 ambulatory [facility] Comment on above: Arrived Start: 08-09-2024 End: 08-09-2024 ambulatory 08/09/2024 2:00 PM EDT Treatment [facility] [address] [place] [address] Raquel Barrientos INFORMATION TECHNOLOGY SPECIALIST [facility] Start: 08-06-2024 End: 08-06-2024 ambulatory 08/06/2024 12:30 PM EDT Evaluation [facility] [address] [place]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 heart without angina pectoris Dizziness Procedures Vascular US Carotid Artery Duplex Bilateral Tawnya Lomeli MD [address] [facility] [address], [place] [place] [address] Referral ID Status Reason Start Date Expiration Date Visits Requested Visits Authorized [id number] Authorized Perform Procedure 12/19/2023 12/18/2024 1 1 [...] section and content) DATE CREATED AUTHOR 07/06/2019 [facility] DATE CREATED AUTHOR AUTHOR'S ORGANIZ ATION 03/20/2020 [facility] DATE CREATED AUTHOR AUTHOR'S ORGANIZ ATION 12/18/2021 [facility] DATE CREATED AUTHOR AUTHOR'S ORGANIZ ATION 01/07/2023 [facility] dical Specialist DATE CREATED AUTHOR AUTHOR'S ORGANIZ ATION 02/27/2023 [facility] pital DATE CREATED AUTHOR AUTHOR'S ORGANIZ ATION 07/01/2023 [facility] DATE CREATED AUTHOR AUTHOR'S ORGANIZ ATION 07/01/2023 [employer] DATE CREATED AUTHOR AUTHOR'S ORGANIZ ATION 01/21/2024 [facility] DATE CREATED AUTHOR AUTHOR'S ORGANIZ ATION 08/16/2024 [facility] DATE CREATED AUTHOR AUTHOR'S ORGANIZ ATION 11/02/2024 [facility] DATE CREATED AUTHOR AUTHOR'S ORGANIZ ATION 01/28/2025 [facility] dical Specialists EPIC REASON FOR VISIT (unrecogniz ed section and content) Reason Comments DELLA MARSHALL Pt stopped taking he r statin 6 months ago she thought it would make her legs feel better Specialty Diagnoses / Procedures Referred By Annabella bucio Referred To Contact Cardiology Diagnoses Coronary artery disease involving solomon coronary artery of solomon heart without angina pectoris Dizziness Procedures Vascular US Carotid Artery Duplex Bilateral Tawnya Lomeli MD [address] [facility] [address] [place] [address] Referral ID Status Reason Start Date Expiration Date Visits Requested Visits Authorized [id number] Authorized Perform Procedure 12/19/2023 12/18/2024 1 1 Specialty Diagnoses / Procedures Referred By Annabella bucio Referred To Contact Physical Therapy Diagnoses Cervicalgia Procedures [place] OFFICE/OUTPATIENT NEW HIGH MDM 60 MINUTES Dea Rodriguez, PA [address] [facility] [address] [place] [address] Santhosh Vickers, PT [address] [facility] [address] [place] [address] Referral ID Status Reason Start Date Expiration Date Visits Requested Visits Authorized [id number] Authorized Specialty Services Required 07/09/2024 01/05/2025 99 99 Reason Onset Date Comments re: PT today 09/05/2024 She had called a nd lm noting she was mistaken by the time and assumed she had an hour to get ready but she figured out it was past her PT time. She said she will be here 09/10 @ 2:00. Reason Comments Depression She feels her Citalo pram is not really working. She thinks it is because the cold weather is coming and the change of the seasons is affecting her. Reason Comments Consult Ventral hernia Specialty Diagnoses / Procedures Referred By Annabella bucio Referred To Contact General Surgery Diagnoses Ventral hernia without obstruction or gangrene Procedures UT OFFICE/OUTPATIENT [facility] 60 MINUTES Dea Rodriguez, PA [address] [place] [address] Phone: tel: fax: Zachary Beavers MD [address] [facility] [address] [place] [address] Phone: tel: fax: Referral ID Status Reason Start Date Expiration Date V isits Requested Visits Authorized [id number] Closed Specialty Services Required 08/13/2024 02/09/2025 [address] results Reason Comments Consult Rt Ft pain Reason Comments Follow-up Bump Specialty Diagnoses / Procedures Referred By Contac t Referred To Contact Cardiology Diagnoses Coronary artery disease involving solomon coronary artery of solomon heart without angina pectoris Paroxysmal atrial fibrillation (Multi) Hyperlipidemia, unspecified hyperlipidemia type Procedures Follow Up In Cardiology Tawnya Lomeli MD [address] [facility] [address], [facility] [address] [place] [address] Tawnya Lomeli MD [address] [facility] [address], [facility] [address] [place] [address] Referral ID Status Reason Start Date Expiration Date V isits Requested Visits Authorized [id number] Authorized 12/19/2023 12/18/2024 1 1 Specialty Diagnoses / Procedures Referred By Contac t Referred To Contact Physical Therapy Diagnoses Pain in left shoulder Procedures UT PHYSICAL THERAPY EVALUATION LOW COMPLEX 20 MINS Eladio Douglass MD [address] [place] [address] Santhosh Vickers, PT [address] [facility] [address] [place] [address] Referral ID Status Reason Start Date Expiration Date V isits Requested Visits Authorized [id number] Authorized 03/21/2024 09/17/2024 99 99 Reason Comments discuss options for osteoporosis Does no t want Fosamax. Has not been on prolia for at least eight years Neck Pain Would like PT referr kalen Stokes. Reason Onset Date Comments re: PT today 10/17/2024 Reason Onset Date Comments Med Refill 08/01/2024 Reason Comments Med Refill Reason Onset Date Comments Med Refill 11/11/2024 Reason Onset Date Comments Med Refill 12/12/2024 Care Teams (unrecognized sec tion and content) Team Status: Active Member Role Status Dates Austin Torres II MD Primary Care Provider Active Team Status: Inactive Member Role Status Dates Austin Torres II MD Primary Care Provider Active Eladio Douglass DO Attending Provider Active Flat Clothier Relationship Specialty Start Date End Date Austin Torres II PCP - General Internal Medicine 03/19/15 Flat Clothier Relationship Specialty Start Date End Date Austin Torres MD [address] [place] [address] PCP - [facility] 12/07/21 Austin Torres MD [address] [place] [address] PCP - General Internal Medicine 03/29/23 Flat Clothier Relationship Specialty Start Date End Date Austin Torres MD [address] [place] [address] [facility] 12/07/21 Austin Torres MD [address] [place] [address] PCP - General Internal Medicine 03/29/23 Flat Clothier Relationship Specialty Start Date End Date Austin Torres MD [address] [place] [address] PCP - General 06/23/23 Team Status: Inactive Member Role Status Dates Austin Torres II MD Primary Care Provider Active Start: March 11, 2024 End: March 11, 2024 Eladio Douglass DO Attending Provider Active S tart: March 11, 2024 End: March 11, 2024 Team Status: Active Member Role Status Dates Austin Torres II MD Primary Care Provider Active Start: March 11, 2024 Eladio Douglass DO Attending Provider Active S tart: March 11, 2024 Flat Clothier Relationship Specialty Start Date End Date Austin Torres MD [address] [place] [address] PCP - General Internal Medicine 03/29/23 Austin Torres MD [address] [place] [address] PCP - [facility] 11/06/23 10/05/64 Flat Clothier Relationship Specialty Start Date End Date Austin Torres MD [address] [place] [address] [facility] 11/06/23 10/05/64 Austin Torres MD [address] [place] [address] PCP - General Internal Medicine 08/09/24 Dea Rodriguez PA [address] [place] [address] Physician Advanced Practice Registered Nurse Family Medicine 08/09/24 Flat Clothier Relationship Specialty Start Date End Date Austin Torres MD [address] [place] [address] PCP - [facility] 11/06/23 10/05/64 Austin Torres MD [address] [place] [address] PCP - General Internal Medicine 08/09/24 Dea Rodriguez PA [address] [place] [address] Physician Advanced Practice Registered Nurse Family Medicine 08/09/24 Flat Clothier Relationship Specialty Start Date End Date Austin Torres MD [address] [place] [address] [facility] 11/06/23 10/05/64 Austin Torres MD [address] [place] [address] PCP - General Internal Medicine 08/09/24 Dea Rodriguez PA [address] [place] [address] Physician Advanced Practice Registered Nurse Family Medicine 08/09/24 Flat Clothier Relationship Specialty Start Date End Date Austin Torres MD [address] [place] [address] [facility] 11/06/23 10/05/64 Austin Trores MD [address] [place] [address] PCP - General Internal Medicine 08/09/24 Dea Rodriguez PA [address] [place] [address] Physician Advanced Practice Registered Nurse Family Medicine 08/09/24 Flat Clothier Relationship Specialty Start Date End Date Austin Torres MD [address] [place] [address] [facility] 11/06/23 10/05/64 Austin Torres MD [address] [place] [address] PCP - General Internal Medicine 08/09/24 Dea Rodriguez PA [address] [place] [address] Physician Advanced Practice Registered Nurse Family Medicine 08/09/24 Flat Clothier Relationship Specialty Start Date End Date Austin Torrse MD [address] [place] [address] PCP - [facility] 11/06/23 10/05/64 Austin Torres MD [address] [place] [address] PCP - General Internal Medicine 08/09/24 Dea Rodriguez PA [address] [place] [address] Physician Advanced Practice Registered Nurse Family Medicine 08/09/24 Flat Clothier Relationship Specialty Start Date End Date Austin Torres MD [address] [place] [address] [facility] 11/06/23 10/05/64 Austin Torres MD [address] [place] [address] PCP - General Internal Medicine 08/09/24 Dea Rodriguez PA [address] [place] [address] Physician Advanced Practice Registered Nurse Family Medicine 08/09/24 Flat Clothier Relationship Specialty Start Date End Date Austin Torres MD [address] [place] [address] PCP - [facility] 11/06/23 10/05/64 Austin Torres MD [address] [place] [address] PCP - General Internal Medicine 08/09/24 Dea Rodriguez PA [address] [place] [address] Physician Advanced Practice Registered Nurse Family Medicine 08/09/24 Flat Clothier Relationship Specialty Start Date End Date Austin Torres MD [address] [place] [address] PCP - [facility] 11/06/23 10/05/64 Austin Torres MD [address] [place] [address] PCP - General Internal Medicine 08/09/24 Dea Rodriguez PA [address] [place] [address] Physician Advanced Practice Registered Nurse Family Medicine 08/09/24 Flat Clothier Relationship Specialty Start Date End Date Austin Torres MD [address] [place] [address] [facility] 11/06/23 10/05/64 Austin Torres MD [address] [place] [address] PCP - General Internal Medicine 08/09/24 Dea Rodriguez PA [address] [place] [address] Physician Advanced Practice Registered Nurse Family Medicine 08/09/24 Flat Clothier Relationship Specialty Start Date End Date Austin Torres MD [address] [place] [address] [facility] 11/06/23 10/05/64 Austin Torres MD [address] [place] [address] PCP - General Internal Medicine 08/09/24 Dea Rodriguez PA [address] [place] [address] Physician Advanced Practice Registered Nurse Family Medicine 08/09/24 Flat Clothier Relationship Specialty Start Date End Date Austin Torres MD [address] [place] [address] [facility] 11/06/23 10/05/64 Austin Torres MD [address] [place] [address] PCP - General Internal Medicine 08/09/24 Dea Rodriguez PA [address] [place] [address] Physician Advanced Practice Registered Nurse Family Medicine 08/09/24 Flat Clothier Relationship Specialty Start Date End Date Austin Torres MD [address] [place] [address] [facility] 11/06/23 10/05/64 Austin Torres MD [address] [place] [address] PCP - General Internal Medicine 08/09/24 Dea Rodriguez PA [address] [place] [address] Physician Advanced Practice Registered Nurse Family Medicine 08/09/24 Flat Clothier Relationship Specialty Start Date End Date Austin Torres MD [address] [place] [address] PCP - [facility] 11/06/23 10/05/64 Austin Torres MD [address] [place] [address] PCP - General Internal Medicine 08/09/24 Dea Rodriguez PA [address] [place] [address] Physician Advanced Practice Registered Nurse Family Medicine 08/09/24 Flat Clothier Relationship Specialty Start Date End Date Austin Torres MD [address] [place] [address] [facility] 11/06/23 10/05/64 Austin Torres MD [address] [place] [address] PCP - General Internal Medicine 08/09/24 Dea Rodriguez PA [address] [place] [address] Physician Advanced Practice Registered Nurse Family Medicine 08/09/24 Flat Clothier Relationship Specialty Start Date End Date Austin Torres MD [address] [place] [address] [facility] 11/06/23 10/05/64 Austin Torres MD [address] [place] [address] PCP - General Internal Medicine 08/09/24 Dea Rodriguez PA [address] [place] [address] Physician Advanced Practice Registered Nurse Family Medicine 08/09/24 Flat Clothier Relationship Specialty Start Date End Date Austin Torres MD [address] [place] [address] PCP - [facility] 11/06/23 10/05/64 Austin Torres MD [address] [place] [address] PCP - General Internal Medicine 08/09/24 Dea Rodriguez PA [address] [place] [address] Physician Advanced Practice Registered Nurse Family Medicine 08/09/24 Flat Clothier Relationship Specialty Start Date End Date Austin Torres MD [address] [place] [address] PCP - General Internal Medicine 03/29/23 Austin Torres MD [address] [place] [address] PCP - [facility] 11/06/23 10/05/64 Flat Clothier Relationship Specialty Start Date End Date Austin Torres MD [address] [place] [address] PCP - General Internal Medicine 03/29/23 Austin Torres MD [address] [place] [address] [facility] 11/06/23 10/05/64 Flat Clothier Relationship Specialty Start Date End Date Austin Torres MD [address] [place] [address] PCP - [facility] 11/06/23 10/05/64 Austin Torres MD [address] [place] [address] PCP - General Internal Medicine 08/09/24 Dea Rodriguez PA [address] [place] [address] Physician Advanced Practice Registered Nurse Family Medicine 08/09/24 Flat Clothier Relationship Specialty Start Date End Date Austin Torres MD [address] [place] [address] PCP - General 06/23/23 Flat Clothier Relationship Specialty Start Date End Date Austin Torres MD [address] [place] [address] [facility] 12/07/21 10/05/64 Austin Torres MD [address] [place] [address] PCP - General Internal Medicine 03/29/23 Flat Clothier Relationship Specialty Start Date End Date Austin Torres MD [address] [place] [address] [facility] 12/07/21 10/05/64 Austin Torres MD [address] [place] [address] PCP - General Internal Medicine 03/29/23 Flat Clothier Relationship Specialty Start Date End Date Austin Torres MD [address] [place] [address] PCP - [facility] 12/07/21 10/05/64 Austin Torres MD [address] [place] [address] PCP - General Internal Medicine 03/29/23 Flat Clothier Relationship Specialty Start Date End Date Austin Torres MD [address] [place] [address] [facility] 12/07/21 10/05/64 Austin Torres MD [address] [place] [address] PCP - General Internal Medicine 03/29/23 Flat Clothier Relationship Specialty Start Date End Date Austin Torres MD [address] [place] [address] [facility] 12/07/21 10/05/64 Austin Torres MD [address] [place] [address] PCP - General Internal Medicine 03/29/23 Flat Clothier Relationship Specialty Start Date End Date Austin Torres MD [address] [place] [address] [facility] 12/07/21 10/05/64 Austin Torres MD [address] [place] [address] PCP - General Internal Medicine 03/29/23 Flat Clothier Relationship Specialty Start Date End Date Austin Torres MD [address] [place] [address] PCP - [facility] 11/06/23 10/05/64 Austin Torres MD [address] [place] [address] PCP - General Internal Medicine 08/09/24 Dea Rodriguez PA [address] [place] [address] Physician Advanced Practice Registered Nurse Family Medicine 08/09/24 Flat Clothier Relationship Specialty Start Date End Date Austin Torres MD [address] [place] [address] [facility] 11/06/23 10/05/64 Austin Torres MD [address] [place] [address] PCP - General Internal Medicine 08/09/24 Dea Rodriguez PA [address] [place] [address] Physician Advanced Practice Registered Nurse Family Medicine 08/09/24 Anahi Martinez, LUIS Clinical Advocate Family Medicine 12/13/24 Flat Clothier Relationship Specialty Start Date End Date Austin Torres MD [address] [place] [address] [facility] 11/06/23 10/05/64 Austin Torres MD [address] [place] [address] PCP - General Internal Medicine 08/09/24 Dea Rodriguez PA [address] [place] [address] Physician Advanced Practice Registered Nurse Family Medicine 08/09/24 Anahi Martinez, RN Clinical Advocate [facility] 12/13/24 Flat Clothier Relationship Specialty Start Date End Date Austin Torres MD [address] [place] [address] PCP - [facility] 11/06/23 10/05/64 Austin Torres MD [address] [place] [address] PCP - General Internal Medicine 08/09/24 Dea Rodriguez PA [address] [place] [address] Physician Advanced Practice Registered Nurse Family Medicine 08/09/24 Anahi Martinez, RN Clinical Advocate [facility] 12/13/24 Flat Clothier Relationship Specialty Start Date End Date Austin Torres MD [address] [place] [address] [facility] 11/06/23 10/05/64 Austin Torres MD [address] [place] [address] PCP - General Internal Medicine 08/09/24 Dea Rodriguez PA [address] [place] [address] Physician Advanced Practice Registered Nurse Family Medicine 08/09/24 Morelia Nunez LPN 01/24/25 Flat Clothier Relationship Specialty Start Date End Date Austin Torres MD [address] [place] [address] PCP - [facility] 11/06/23 10/05/64 Austin Torres MD [address] [place] [address] PCP - General Internal Medicine 08/09/24 Dea Rodriguez PA [address] [place] [address] Physician Advanced Practice Registered Nurse Family Medicine 08/09/24 Morelia Nunez LPN 01/24/25 Goals (unrecognized section and content) Goals may be documented in a n alternate section Source Comments (unrecognize d section and content) In the event this informatio n is protected by the Federal Confidentiality of Alcohol and Drug Abuse Patient Records regulations: The Federal rules restrict any use of the information to criminally investigate or prosecute any alcohol or drug abuse patient.[facility] FOR RECORDS PERTAINING TO PATIENTS WHO [...] BE BASED ON THE PRIMARY CLINICAL RECORDS. [facility]. provides no warranty or guarantee of the accuracy or completeness of information in this document.
[2025-01-28 11:20] LABS: Basophils Percent Auto 0.7 % (0.2-2.0); Eosinophils Absolute Auto 0.2 10^3/uL (0.0-0.7); Eosinophils Percent Auto 3.9 % (0.9-7.0); Hemoglobin 11.9 g/dL (12.0-16.0); Immature Granulocytes Abs Auto 0.01 10^3/uL (0.00-0.03); Immature Granulocytes Pct Auto 0.2 % (0.0-0.5); Lymphocytes Absolute Auto 1.2 10^3/uL (1.2-3.8); Lymphocytes Percent Auto 26.3 % (20.5-60.0); Mean Corpuscular HGB Conc 33.1 g/dL (29.9-35.2); Mean Corpuscular Hemoglobin 32.5 pg (26.7-34.0); Mean Corpuscular Volume 98.4 fL (81.0-99.0); Mean Platelet Volume 9.2 fL (9.5-13.5); Monocytes Absolute Auto 0.4 10^3/uL (0.3-0.8); Monocytes Percent Auto 8.3 % (1.7-12.0); Neutrophils Absolute Auto 2.8 10^3/uL (1.4-6.5); Neutrophils Percent Auto 60.6 % (43.0-75.0); Platelet Count 223 10^3/uL (150-450); Red Blood Count 3.66 10^6/uL (4.20-5.40); Red Cell Distribution Width 12.1 % (11.0-15.0); White Blood Count 4.6 10^3/uL (4.0-11.0)
[2025-01-28 12:19] LABS: Alanine Aminotransferase 28 U/L (14-59); Anion Gap 10.1; Aspartate Amino Transferase 30 U/L (15-37); BUN Creatinine Ratio 20.5; Calcium 8.6 mg/dL (8.5-10.1); Carbon Dioxide 30.6 mmol/L (21.0-32.0); Chloride 101 mmol/L (98-107); Cholesterol 126 mg/dL (<=200); Estimated GFR (African America >60 (>=60 mL/min/1.73m^2); Estimated GFR (Non-African Ame >60 (>=60 mL/min/1.73m^2); Glucose 95 mg/dL (74-106); HDL Cholesterol 63 mg/dL (40-60); Potassium 3.7 mmol/L (3.5-5.1); Sodium 138 mmol/L (136-145); Triglycerides 95 mg/dL (<=150)
== END 2025-01-28 10:39 | disposition home or self-care (01) ==
PROVIDERS: PCP Internal Medicine; Visit Provider Internal Medicine Cardiovascular Disease
DX: E78.5 Hyperlipidemia, unspecified (principal); I48.0 Paroxysmal atrial fibrillation; Z79.899 Other long term (current) drug therapy
CPT/HCPCS: 36415; 80048; 80061; 84450; 84460; 85025